=== PATIENT | female | born 1995 | race Caucasian/White ===

== ENCOUNTER 2017-05-25 02:38 | Emergency (ER) | payer BC, OTHER ==
[2017-05-25 02:47] VITALS: BP 163/71; RESP 18; TEMP 97.1
[2017-05-25] MEDS ORDERED: IPRATROPIUM-ALBUTEROL 3 ML NEB INHALATION STA (03:00)
[2017-05-25] MEDS ORDERED: methylPREDNISolone SOD SUCCI 125 MG/2 ML VIAL IM ONE (03:00)
--- NOTE | 2017-05-25 03:05 | XR ---
EXAM: XR Chest, 2 Views CLINICAL HISTORY: Reason: Pain TECHNIQUE: Frontal and lateral views of the chest. COMPARISON: 03/03/17 FINDINGS: Lungs: Unremarkable. No consolidation. Pleural space: Unremarkable. No pneumothorax. Heart: Unremarkable. No cardiomegaly. Mediastinum: Unremarkable. Bones/joints: Unremarkable. IMPRESSION: Normal chest x-rays.
--- NOTE | 2017-05-25 03:29 | ED ---
URI HPI - General Chief Complaint: Upper Respiratory Infection Stated Complaint: URI Time Seen by Provider: 05/25/17 02:54 Source: patient, RN notes reviewed Mode of arrival: ambulatory Limitations: no limitations - History of Present Illness Initial Comments: 21-year-old female presents emergency Department chief complaint of cough congestion shortness of breath. Patient states she was seen here for 5 weeks ago diagnosed with pneumonia. Patient states she took her antibiotics as directed states that she never followed she got better saw her primary care physician was given 2 repeat Z-Paks. Patient states that she's also been given a dose of steroids. Patient states approximately a week ago she developed a fever 102 with severe body aches and chills. Patient states is also resolved that she's having problems with her asthma. She states that she has a rescue inhaler, nebulizer and 2 layer. Patient denies any chest pain though she does complain of some chest tightness. Denies any abdominal pain denies nausea vomiting diarrhea constipation. Denies any chance . - Related Data Home Medications Medication Instructions Recorded Confirmed Albuterol Inhaler [Ventolin Hfa 1 puff INHALATION RT-Q6H PRN 01/22/16 03/03/17 Inhaler] Albuterol Nebulized [Ventolin 2.5 mg INHALATION RT-Q6H PRN 01/22/16 03/03/17 Nebulized] Mometasone/Formoterol [Dulera 100 2 puff INHALATION RT-BID 03/05/16 03/03/17 Mcg/5 Mcg Inhaler] Ibuprofen [Ibuprofen] 600 mg PO BID PRN 03/03/17 03/03/17 Loratadine [Claritin] 10 mg PO DAILY 03/03/17 03/03/17 Montelukast Sodium [Singulair] 10 mg PO HS 03/03/17 03/03/17 Previous Rx's Medication Instructions Recorded Ipratropium-Albuterol Nebulize 3 ml INHALATION QID #1 box 05/25/17 [Duoneb 0.5 mg-3 mg/3 ml Soln] predniSONE 10 mg PO DIRECTED #30 tab 05/25/17 Allergies Allergy/AdvReac Type Severity Reaction Status Date / Time amphetamine aspartate AdvReac Confusion Verified 05/25/17 02:47 [From Adderall] amphetamine sulfate AdvReac Confusion Verified 05/25/17 02:47 [From Adderall] dextroamphetamine saccharate AdvReac Confusion Verified 05/25/17 02:47 [From Adderall] dextroamphetamine sulfate AdvReac Confusion Verified 05/25/17 02:47 [From Adderall] Review of Systems ROS Statement: Those systems with pertinent positive or pertinent negative responses have been documented in the HPI. ROS Other: All systems not noted in ROS Statement are negative. Past Medical History Past Medical History: Asthma History of Any Multi-Drug Resistant Organisms: None Reported Past Surgical History: No Surgical Hx Reported Past Psychological History: No Psychological Hx Reported Smoking Status: Former smoker Past Alcohol Use History: None Reported Past Drug Use History: None Reported General Exam Limitations: no limitations General appearance: alert, in no apparent distress Head exam: Present: atraumatic, normocephalic, normal inspection Eye exam: Present: normal appearance, PERRL, EOMI. Absent: scleral icterus, conjunctival injection, periorbital swelling ENT exam: Present: normal exam, normal oropharynx, mucous membranes moist, TM's normal bilaterally, normal external ear exam Neck exam: Present: normal inspection, full ROM. Absent: tenderness, meningismus, lymphadenopathy Respiratory exam: Present: wheezes. Absent: normal lung sounds bilaterally, respiratory distress, rales, rhonchi, stridor Cardiovascular Exam: Present: regular rate, normal rhythm, normal heart sounds. Absent: systolic murmur, diastolic murmur, rubs, gallop, clicks Neurological exam: Present: alert, oriented X3, CN II-XII intact Course Vital Signs 05/25/17 05/25/17 02:44 03:14 Temperature 97.1 F L Pulse Rate 103 H 100 Respiratory 18 Rate Blood Pressure 163/71 O2 Sat by Pulse 94 L Oximetry - Reevaluation(s) Reevaluation #1: 05/25/17 03:27 Patient was reevaluated after DuoNeb treatment updated on chest x-ray results. Patient states she fills 100% better at this time. Medical Decision Making - Medical Decision Making 21-year-old female presented emergency from for shortness breath cough congestion. Patient's chest x-ray reviewed no acute abnormality. Patient feels better after DuoNeb treatment given IM steroids. Patient is having a mild asthma exacerbation. She'll be discharged on steroids, DuoNeb treatments. Disposition Clinical Impression: Asthma exacerbation Disposition: HOME SELF-CARE Condition: Stable Instructions: Asthma (ED) Additional Instructions: Please return to the Emergency Department if symptoms worsen or any other concerns. Prescriptions: Ipratropium-Albuterol Nebulize [Duoneb 0.5 mg-3 mg/3 ml Soln] 3 ml INHALATION QID #1 box predniSONE 10 mg PO DIRECTED #30 tab Referrals: Isabel Castro DO [Primary Care Provider] - 1-2 days Time of Disposition: 03:29
[2017-05-25 03:35] VITALS: PULSE 96
== END 2017-05-25 03:44 | disposition home or self-care (01) ==
LOC: EC 02:38
DX: J45.901 Unspecified asthma with (acute) exacerbation (principal); Z87.891 Personal history of nicotine dependence; Z79.51 Long term (current) use of inhaled steroids; Z79.899 Other long term (current) drug therapy; Z88.8 Allergy status to other drugs, medicaments and biological substances
CPT/HCPCS: 94640; 71046; 99283; 96372; J2930

== ENCOUNTER 2017-06-24 10:07 | Emergency (ER) | payer BC, OTHER ==
--- NOTE | 2017-06-24 11:45 | ED ---
General Adult HPI - General Chief complaint: Urogenital Stated complaint: Female Time Seen by Provider: 06/24/17 11:23 Source: patient, RN notes reviewed Mode of arrival: ambulatory Limitations: no limitations - History of Present Illness Initial comments: Patient is a 21-year-old female who presents emergency room today with a chief complaint of some vaginal irritation. She does admit that she felt some irritation to the vaginal area starting 4 days ago. States that she noticed a blister yesterday. States that the blister has ruptured. She also admits that she thought could be a little bit of a yeast infection as she has had small amount of drainage discharge. She denies any complaints or symptoms. - Related Data Previous Rx's Medication Instructions Recorded valACYclovir HCL [Valtrex] 1,000 mg PO BID #20 tablet 06/24/17 Allergies Allergy/AdvReac Type Severity Reaction Status Date / Time lamotrigine [From Lamictal] Allergy Hallucinati Verified 06/24/17 11:51 ons amphetamine aspartate AdvReac Confusion Verified 06/24/17 11:51 [From Adderall] amphetamine sulfate AdvReac Confusion Verified 06/24/17 11:51 [From Adderall] dextroamphetamine saccharate AdvReac Confusion Verified 06/24/17 11:51 [From Adderall] dextroamphetamine sulfate AdvReac Confusion Verified 06/24/17 11:51 [From Adderall] Review of Systems ROS Statement: Those systems with pertinent positive or pertinent negative responses have been documented in the HPI. ROS Other: All systems not noted in ROS Statement are negative. Past Medical History Past Medical History: Asthma History of Any Multi-Drug Resistant Organisms: None Reported Past Surgical History: No Surgical Hx Reported Past Psychological History: No Psychological Hx Reported Smoking Status: Former smoker Past Alcohol Use History: None Reported Past Drug Use History: None Reported General Exam - General Exam Comments Initial Comments: General: The patient is awake and alert, in no distress, and does not appear acutely ill. Eye: Pupils are equal, round and reactive to light, extra-ocular movements are intact. No nystagmus. There is normal conjunctiva bilaterally. No signs of icterus. Ears, nose, mouth and throat: There are moist mucous membranes and no oral lesions. Neck: The neck is supple, there is no tenderness or JVD. Cardiovascular: There is a regular rate and rhythm. No murmur, rub or gallop is appreciated. Respiratory: Lungs are clear to auscultation, respirations are non-labored, breath sounds are equal. No wheezes, stridor, rales, or rhonchi. Gastrointestinal: [Soft, non-distended, non-tender abdomen without masses or organomegaly noted. There is no rebound or guarding present. No CVA tenderness. Bowel sounds are unremarkable.] Musculoskeletal: Normal ROM, no tenderness. Strength 5/5. Sensation intact. Pulses equal bilaterally 2+. Neurological: A&O x 3. CN II-XII intact, There are no obvious motor or sensory deficits. Coordination appears grossly intact. Speech is normal. Skin: Skin is warm and dry and no rashes or lesions are noted. Psychiatric: Cooperative, appropriate mood & affect, normal judgment. : CNMT and she present for exam. Patient does have 3-4 he will get blisters seen just inside the labia majora on the right. Areas are tender. There is no other redness or inflammation. Patient does have some vaginal bleeding in the vault. There is no evidence of tear. Limitations: no limitations Course Vital Signs 06/24/17 10:14 Temperature 98.7 F Pulse Rate 102 H Respiratory 16 Rate Blood Pressure 136/81 O2 Sat by Pulse 96 Oximetry Medical Decision Making - Medical Decision Making Patient does have blisters right side of the labia minora. Patient does have a swab but is a send out for herpes. Was discussed with patient about beginning treatment today. She states she would like to start treatment. She is advised that she should follow back up with [employer]. Advised no sexual contact symptoms have completely resolved. Disposition Clinical Impression: Blister of genital area Disposition: HOME SELF-CARE Condition: Good Instructions: Genital Herpes Simplex (ED) Additional Instructions: Please use medication as discussed. Please follow-up with [employer] as discussed. No sexual contact all symptoms have resolved. Please return to emergency room if the symptoms increase or worsen or for any other concerns. Prescriptions: valACYclovir HCL [Valtrex] 1,000 mg PO BID #20 tablet Referrals: Isabel Castro DO [Primary Care Provider] - 1-2 days Therese Ward DO [Doctor of Osteopathic Medicine] - 1-2 days Time of Disposition: 12:23
[2017-06-24 12:38] VITALS: BP 135/56; PULSE 98; RESP 20; TEMP 98.3
== END 2017-06-24 12:35 | disposition home or self-care (01) ==
LOC: EC 10:07
DX: S30.824A Blister (nonthermal) of vagina and vulva, initial encounter (principal); N93.9 Abnormal uterine and vaginal bleeding, unspecified; Z87.891 Personal history of nicotine dependence; Z88.8 Allergy status to other drugs, medicaments and biological substances
CPT/HCPCS: 81025; 87086; 87529; 99283

== ENCOUNTER → 2018-04-07 | Outpatient (CLI) | payer OTHER ==
[2018-04-07 12:14] LABS: HCT 34.1 % (34.0-46.0); HGB 11.8 gm/dL (11.4-16.0); MCH 30.2 pg (25.0-35.0); MCHC 34.6 g/dL (31.0-37.0); MCV 87.3 fL (80.0-100.0); Mean Platelet Volume 7.9; Platelet Count 304 k/uL (150-450); RBC 3.91 m/uL (3.80-5.40); RDW 14.7 % (11.5-15.5); WBC 10.4 k/uL (4.0-11.0)
== END | disposition home or self-care (01) ==
LOC: LABWHC1 10:43
PROVIDERS: ATTEND Obstetrics & Gynecology
DX: Z34.82 Encounter for supervision of other normal pregnancy, second trimester (principal)
CPT/HCPCS: 36415; 82950; 85027

== ENCOUNTER 2018-04-20 18:08 | Outpatient (CLI) | payer BC, OTHER ==
[2018-04-20 18:48] LABS: Amorphous Sediment,Urine Rare /hpf; Appearance,Urine Clear (Clear); Bacteria,Urine Occasional /hpf; Bilirubin,Urine Negative (Negative); Blood,Urine Negative (Negative); Color,Urine Yellow; Glucose,Urine (UA) Negative (Negative); Ketones,Urine Negative (Negative); Leukocyte Esterase,Urine Moderate (Negative); Mucus,Urine Few /hpf; Nitrite,Urine Negative (Negative); Protein,Urine Trace (Negative); RBC,Urine 3 /hpf (0-5); Specific Gravity,Urine 1.019 (1.001-1.035); Squamous Epithelial Cell,Urine 9 /hpf (0-4); Urobilinogen,Urine <2.0 mg/dL (<2.0); WBC,Urine 12 /hpf (0-5)
[2018-04-20 19:10] VITALS: BP 160/78; PULSE 107; RESP 20; TEMP 96.2
--- NOTE | 2018-05-05 07:52 | P.MSEPDOC ---
Presenting Problems - Arrival Data Date of Arrival on Unit: 04/20/18 Time of Arrival on Unit: 18:08 Mode of Transport: Ambulatory - Complaint Comment: pt presents for right sided pain that wraps around to her whole back and down her right leg for the last 3 days Medical History - Information : 1 Para: 0 Term: 0 : 0 Abortions: Spontaneous or Elective: 0 Number of Living Children: 0 - Gestational Age Gestational Age by ALISA (wks/days): 28 Weeks and 1 Days Review of Systems - Review of Systems Constitutional: No problems Breast: No problems ENT: No problems Cardiovascular: No problems Respiratory: Wheezing Gastrointestinal: No problems Genitourinary: No problems Musculoskeletal: No problems Neurological: No problems Skin: No problems Vital Signs - Temperature Temperature: 96.2 F Temperature Source: Axillary - Pulse Right Brachial Pulse Rate: 107 - Respirations Respiratory Rate: 20 Oxygen Delivery Method: Room Air - Blood Pressure Right Arm Blood Pressure: 160/78 Blood Pressure Mean: 105 Blood Pressure Source: Automatic Cuff Medical Screen Scoring (Pre) - Cervical Exam Dilation: 0 cm = 0 Membranes: Intact - Uterine Contractions Frequency: N/A Duration: N/A Intensity: N/A - Maternal Vital Signs Maternal Temperature: N/A Maternal Blood Pressure: Systolic >139 = 2 Signs of Preeclampsia: N/A Maternal Respirations: N/A - Pain Assessment Pain Scale Used: Numeric (1 - 10) Pain Intensity: 8 Pain Description: *Acute, Aching, Burning, Cramping, Pressure, Sharp, Shooting Pain Duration: 3 Pain Duration Units: Days Pain Behavior: Facial Grimacing, Moving Slowly, Vocalization - Assessment Baseline FHR: 140 Heart Rate - NICHD Category: Category I (Normal) = 0 NST: Reactive Position: N/A Station: N/A - Total Score Total Score (Pre): 2 - Level of Risk Level of Risk: Low (0-5) Physician Notification (Pre) - Physician Notified Physician Notified Date: 04/20/18 Physician Notified Time: 18:57 Physician/Practitioner Notifed:: Dr. Coronel Spoke With: Dr. Coronel - Notification Comment Comment: Dr. Coronel notified of pt's arrival, c/o pain, SOB, exp wheezes, productive cough, reactive nst, no contractions, abd soft, cervical exam, ua results, orders to discharge pt home, she is to follow up in ob office on Wednesday at scheduled appt, if any more resp issues she needs to be seen in the ER Disposition - Disposition OB Disposition: Triage, Discharge to home, Written follow up instructions reviewed Discharge Date: 04/20/18 Discharge Time: 19:05 I agree with the RN Medical Screening Exam: Yes Risk & Benefit of care provided described in d/c instruction: Yes Diagnosis: RELATED CONDITIONS, UNSP, UNSPECIFIED TRIMESTER
== END 2018-04-20 19:05 | disposition home or self-care (01) ==
LOC: FBPOP 18:08
PROVIDERS: ATTEND Obstetrics & Gynecology
DX: O26.93 Pregnancy related conditions, unspecified, third trimester (principal); Z3A.28 28 weeks gestation of pregnancy
CPT/HCPCS: 59025; 81001; G0463; 99213

== ENCOUNTER 2018-04-22 09:35 | Observation (INO) | payer BC, OTHER ==
[2018-04-22 10:22] VITALS: BMI 44.7
--- NOTE | 2018-04-22 13:13 | XR ---
EXAMINATION TYPE: XR chest 2V DATE OF EXAM: 04/22/2018 COMPARISON: Prior chest x-ray 06/13/2017 HISTORY: Shortness of breath TECHNIQUE: Frontal and lateral views of the chest are obtained. FINDINGS: There is no focal air space opacity, pleural effusion, or pneumothorax seen. The cardiac silhouette size is within normal limits. The osseous structures are intact. IMPRESSION: No acute cardiopulmonary process.
[2018-04-22] MEDS ORDERED: ALBUTEROL NEBULIZED 2.5 MG/3 ML INHALATION PRN (13:15)
--- NOTE | 2018-04-22 13:21 | P.CNPUL ---
History of Present Illness Consult date: 04/22/18 Requesting physician: Bhupendra Coronel Reason for consult: dyspnea, cough, asthma Chief complaint: Shortness of breath, wheezing History of present illness: This is a very pleasant 22-year-old female patient who is [address] weeks [address] with [address] Coronel. She has a history of mild intermittent asthma and utilizes a Ventolin rescue inhaler as needed. Over the past several weeks she has been having ongoing issues with worsening shortness of breath, cough, productive sputum and congestion. She had been seen at [facility] ER 2 initially on a Z-Eder and then on a Medrol Dosepak. She had not had much improvement and was admitted here for the same. She is seen today in consultation in the [facility]. She is awake and alert in no acute distress. She is maintaining good O2 saturations in the mid 90s on room air. She's been afebrile. Hemodynamically stable. She states she is still having issues with some shortness of breath and shortness of breath on exertion. She is noted to have a mild end expiratory wheeze. Chest x-ray is clear of any pneumonia. Review of Systems Constitutional: Reports as per HPI Eyes: denies blurred vision, denies decreased vision Ears: deny: decreased hearing Ears, nose, mouth and throat: Denies headache, Denies sore throat Cardiovascular: Reports dyspnea on exertion, Reports shortness of breath Respiratory: Reports cough with sputum, Reports dyspnea, Reports wheezing Gastrointestinal: Denies abdominal pain, Denies diarrhea, Denies nausea, Denies vomiting Genitourinary: Denies dysuria, Denies hematuria Musculoskeletal: Denies myalgias Integumentary: Denies pruritus, Denies rash Neurological: Denies numbness, Denies weakness Psychiatric: Reports anxiety Endocrine: Denies fatigue, Denies weight change Hematologic/Lymphatic: Reports as per HPI Allergic/Immunologic: Reports as per HPI Past Medical History Past Medical History: Asthma History of Any Multi-Drug Resistant Organisms: None Reported Past Surgical History: No Surgical Hx Reported Past Anesthesia/Blood Transfusion Reactions: No Reported Reaction Past Psychological History: No Psychological Hx Reported Smoking Status: Former smoker Past Alcohol Use History: None Reported Past Drug Use History: None Reported Medications and Allergies Home Medications Medication Instructions Recorded Confirmed Type Albuterol Inhaler [Ventolin Hfa 1 puff INHALATION Q4HR 03/31/18 04/22/18 History Inhaler] Pnv No.95/Ferrous Fum/Folic AC 1 tab PO DAILY 03/31/18 04/22/18 History [ Multivitamin Tablet] Allergies Allergy/AdvReac Type Severity Reaction Status Date / Time lamotrigine [From Lamictal] Allergy Hallucinati Verified 04/22/18 09:54 ons amphetamine aspartate AdvReac Confusion Verified 04/22/18 09:54 [From Adderall] amphetamine sulfate AdvReac Confusion Verified 04/22/18 09:54 [From Adderall] dextroamphetamine saccharate AdvReac Confusion Verified 04/22/18 09:54 [From Adderall] dextroamphetamine sulfate AdvReac Confusion Verified 04/22/18 09:54 [From Adderall] Physical Exam Vitals: Vital Signs Temp Pulse Resp BP Pulse Ox 04/22/18 09:52 98.7 F 98 20 133/67 95 Intake and Output 04/21/18 04/22/18 04/22/18 22:59 06:59 14:59 Other: Weight 122.016 kg GENERAL EXAM: Alert, active, comfortable in no apparent distress. HEAD: Normocephalic. EYES: Normal reaction of pupils, equal size. NOSE: Clear with pink turbinates. THROAT: No erythema or exudates. NECK: No masses, no JVD. CHEST: No chest wall deformity. LUNGS: Equal air entry with faint end expiratory wheeze. CVS: S1 and S2 normal with no audible murmur, regular rhythm. ABDOMEN: Intrauterine , normal bowel sounds, no guarding or rigidity. SPINE: No scoliosis or deformity SKIN: No rashes CENTRAL NERVOUS SYSTEM: No focal deficits, tone is normal in all 4 extremities. EXTREMITIES: There is no peripheral edema. No clubbing, no cyanosis. Peripheral pulses are intact. Results - Diagnostic Findings Chest x-ray: image reviewed Assessment and Plan Assessment: Impression: #1 Acute exacerbation of mild intermittent asthma exacerbated by . #2 Acute purulent tracheobronchitis with no evidence of pneumonia. #3 28 weeks gestation. #4 Gastroesophageal reflux disease. Plan: The patient was seen and evaluated by Dr. Vasquez. She is stable for discharge from the pulmonary standpoint. We'll add Symbicort maintenance inhaler to be utilized 2 puffs twice a day. Prednisone 20 mg for 5 days then 10 mg for 5 days then 5 mg for 5 days then stop. Continue to utilize the Ventolin HFA up to 4 times a day as needed. Empiric antibiotics in the form of azithromycin 500 mg daily for 7 days. She could follow-up in our office in 1-2 weeks' time. We will perform full pulmonary function testing to evaluate the severity of her asthma and make further recommendations regarding maintenance medications. She is encouraged to call sooner with any recurrence of symptoms or other questions or concerns. I, the cosigning physician, performed a history & physical examination of the patient. Lungs sounds with faint end expiratory wheeze. Maintaining good O2 saturations in the 90s on room air. I discussed the assessment and plan of care with my nurse practitioner, Clarice Joe. I attest to the above consultation as dictated by her. Time with Patient: Greater than 30
[2018-04-22 13:27] VITALS: RESP 18
[2018-04-22] MEDS ORDERED: AZITHROMYCIN 500 MG TAB PO SCH (13:30)
[2018-04-22] MEDS ORDERED: methylPREDNISolone SOD SUCCI 125 MG/2 ML VIAL IV SCH (13:30)
[2018-04-22 14:37] VITALS: BP 118/59; TEMP 98.8
[2018-04-22] MEDS ORDERED: predniSONE 20 MG TAB PO STA (15:42)
[2018-04-22] MEDS ORDERED: ALBUTEROL NEBULIZED 2.5 MG/3 ML INHALATION SCH (16:00)
[2018-04-22 16:08] VITALS: PULSE 93
--- NOTE | 2018-04-22 16:24 | P.DS ---
Providers Date of admission: 04/22/18 09:35 Expected date of discharge: 04/22/18 Attending physician: Bhupendra Coronel Consults: 04/22/18 11:10 Consult Physician Stat Consulting Provider: Bob Vasquez Consult Reason/Comments: Acute Asthma Brochitis Do you want consulting provider notified?: Yes Primary care physician: Stated None Hospital Course: Was seen by pulmonary and is had breathing treatments. They have prescribed medication for her including Symbicort and once we have these medicines for her will discharge her to home in stable and satisfactory condition. All other questions were answered for her at this time. Patient Condition at Discharge: Good Plan - Discharge Summary Discharge Rx Participant: No New Discharge Prescriptions: No Action Albuterol Inhaler [Ventolin Hfa Inhaler] 1 puff INHALATION Q4HR Pnv No.95/Ferrous Fum/Folic AC [ Multivitamin Tablet] 1 tab PO DAILY Discharge Medication List Albuterol Inhaler [Ventolin Hfa Inhaler] 1 puff INHALATION Q4HR 03/31/18 [ History] Pnv No.95/Ferrous Fum/Folic AC [ Multivitamin Tablet] 1 tab PO DAILY [History]
--- NOTE | 2018-04-22 16:24 | P.HPOB ---
History of Present Illness H&P Date: 04/22/18 Chief Complaint: Intrauterine at 28 weeks: Asthmatic bronchitis Patient is a 22-year-old female 28 weeks gestation with acute asthmatic bronchitis. She's been tried on 2 separate antibiotics and oral steroids and is continuing to have symptomatic bronchitis she is admitted for pulmonary consultation. Her breathing today in the office was somewhat labored with diffuse expiratory wheezes. We will defer evaluation and treatment options to pulmonary. Otherwise she is in stable condition at this time. heart tones were noted in the office. Past Medical History Past Medical History: Asthma History of Any Multi-Drug Resistant Organisms: None Reported Past Surgical History: No Surgical Hx Reported Past Anesthesia/Blood Transfusion Reactions: No Reported Reaction Past Psychological History: No Psychological Hx Reported Smoking Status: Former smoker Past Alcohol Use History: None Reported Past Drug Use History: None Reported Medications and Allergies Home Medications Medication Instructions Recorded Confirmed Type Albuterol Inhaler [Ventolin Hfa 1 puff INHALATION Q4HR 03/31/18 04/22/18 History Inhaler] Pnv No.95/Ferrous Fum/Folic AC 1 tab PO DAILY 03/31/18 04/22/18 History [ Multivitamin Tablet] Allergies Allergy/AdvReac Type Severity Reaction Status Date / Time lamotrigine [From Lamictal] Allergy Hallucinati Verified 04/22/18 09:54 ons amphetamine aspartate AdvReac Confusion Verified 04/22/18 09:54 [From Adderall] amphetamine sulfate AdvReac Confusion Verified 04/22/18 09:54 [From Adderall] dextroamphetamine saccharate AdvReac Confusion Verified 04/22/18 09:54 [From Adderall] dextroamphetamine sulfate AdvReac Confusion Verified 04/22/18 09:54 [From Adderall] Exam Osteopathic Statement: *. No significant issues noted on an osteopathic structural exam other than those noted in the History and Physical/Consult. Vital Signs Temp Pulse Pulse Resp BP BP Pulse Ox 04/22/18 16:07 93 04/22/18 16:00 89 04/22/18 14:35 98.8 F 93 18 118/59 96 04/22/18 10:00 18 04/22/18 09:52 98.7 F 98 20 133/67 95 Intake and Output 04/22/18 04/22/18 04/22/18 06:59 14:59 22:59 Intake Total 500 Balance 500 Intake: Oral 500 Other: Weight 122.016 kg - OBG Physical Exam Abdomen: bowel sounds normal, no diffuse tenderness, no bruit present, no guarding noted, no hepatomegaly, no splenomegaly, no mass
[2018-04-22] MEDS ORDERED: SYMBICORT 160-4.5 MCG INHALER INHALATION SCH (20:00)
[2018-04-22] MEDS ORDERED: BUDESONIDE 0.5 MG/2 ML NEBU INHALATION SCH (20:00)
== END 2018-04-22 17:25 | disposition home or self-care (01) ==
LOC: INTOOBSV 09:35 → 4FBP 09:35 → UNDODISIN 17:25
PROVIDERS: ADMIT Obstetrics & Gynecology; ATTEND Obstetrics & Gynecology
DX: O99.513 Diseases of the respiratory system complicating pregnancy, third trimester (principal); J45.21 Mild intermittent asthma with (acute) exacerbation; Z3A.28 28 weeks gestation of pregnancy; J20.9 Acute bronchitis, unspecified; O99.613 Diseases of the digestive system complicating pregnancy, third trimester; K21.9 Gastro-esophageal reflux disease without esophagitis; Z79.899 Other long term (current) drug therapy; Z87.891 Personal history of nicotine dependence; Z88.8 Allergy status to other drugs, medicaments and biological substances
CPT/HCPCS: 94640; 71046; G0378; G0379; J7512

== ENCOUNTER 2018-05-06 19:17 | Emergency (ER) | payer OTHER ==
[2018-05-06 19:23] VITALS: TEMP 98.7
[2018-05-06] MEDS ORDERED: SODIUM CHLORIDE 0.9% 500 ML 500 ML IV ONE (20:32)
[2018-05-06 20:55] LABS: Basophils % (A) 0 %; Eosinophils # (A) 0.1 k/uL (0-0.7); Eosinophils % (A) 1 %; HCT 35.4 % (34.0-46.0); HGB 11.6 gm/dL (11.4-16.0); Lymphocytes # (A) 2.1 k/uL (1.0-4.8); Lymphocytes % (A) 13 %; MCHC 32.8 g/dL (31.0-37.0); MCV 85.3 fL (80.0-100.0); Mean Platelet Volume 8.2; Monocytes # (A) 0.8 k/uL (0-1.0); Monocytes % (A) 5 %; Neutrophils # (A) 12.5 k/uL (1.3-7.7); Neutrophils % (A) 80 %; Platelet Count 333 k/uL (150-450); RBC 4.15 m/uL (3.80-5.40); RDW 14.6 % (11.5-15.5); WBC 15.7 k/uL (4.0-11.0)
[2018-05-06 20:58] LABS: Appearance,Urine Cloudy (Clear); Bilirubin,Urine Negative (Negative); Blood,Urine Negative (Negative); Color,Urine Yellow; Glucose,Urine (UA) Negative (Negative); Ketones,Urine Negative (Negative); Leukocyte Esterase,Urine Large (Negative); Mucus,Urine Few /hpf; Nitrite,Urine Negative (Negative); Protein,Urine 2+ (Negative); RBC,Urine 4 /hpf (0-5); Specific Gravity,Urine 1.022 (1.001-1.035); Squamous Epithelial Cell,Urine 10 /hpf (0-4); WBC,Urine 20 /hpf (0-5)
[2018-05-06 21:04] LABS: ALT 26 U/L (9-52); AST 23 U/L (14-36); Albumin 3.4 g/dL (3.5-5.0); Alkaline Phosphatase 155 U/L (38-126); Anion Gap 9 mmol/L; Blood Urea Nitrogen 8 mg/dL (7-17); Calcium 9.3 mg/dL (8.4-10.2); Carbon Dioxide 21 mmol/L (22-30); Chloride 106 mmol/L (98-107); Glucose 81 mg/dL (74-99); Potassium 4.3 mmol/L (3.5-5.1); Sodium 136 mmol/L (137-145); Total Bilirubin 0.4 mg/dL (0.2-1.3); Total Protein 6.9 g/dL (6.3-8.2)
[2018-05-06 21:06] LABS: INR 0.9 (<1.2); Partial Thromboplastin Time 22.7 sec (22.0-30.0); Prothrombin Time 9.4 sec (9.0-12.0)
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
[2018-05-06 22:38] VITALS: BP 118/80; PULSE 91; RESP 16
[2018-05-08 12:31] LABS: C. trachomatis,PCR Negative (Neg,Equiv); Chlamydia trachomatis Source Urine
== END 2018-05-06 22:41 | disposition home or self-care (01) ==
LOC: EC 19:17
DX: O9A.213 Injury, poisoning and certain other consequences of external causes complicating pregnancy, third trimester (principal); S20.01XA Contusion of right breast, initial encounter; R10.30 Lower abdominal pain, unspecified; M54.5 Low back pain; O99.89 Other specified diseases and conditions complicating pregnancy, childbirth and the puerperium; R82.998 Other abnormal findings in urine; O99.513 Diseases of the respiratory system complicating pregnancy, third trimester; J45.909 Unspecified asthma, uncomplicated; Z87.891 Personal history of nicotine dependence; Z88.8 Allergy status to other drugs, medicaments and biological substances; Z79.52 Long term (current) use of systemic steroids; Z3A.30 30 weeks gestation of pregnancy; V49.49XA Driver injured in collision with other motor vehicles in traffic accident, initial encounter; Y92.410 Unspecified street and highway as the place of occurrence of the external cause
CPT/HCPCS: 36415; 80053; 85025; 85610; 85730; 81001; 87491; 87086; 74177; 99284; Q9967

== ENCOUNTER 2018-05-06 23:00 | Outpatient (CLI) | payer OTHER ==
[2018-05-07 00:07] VITALS: BP 136/74; PULSE 91; RESP 16; TEMP 97.3
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
== END 2018-05-06 23:40 | disposition home or self-care (01) ==
LOC: FBPOP 23:00
PROVIDERS: ATTEND Obstetrics & Gynecology
DX: O9A.213 Injury, poisoning and certain other consequences of external causes complicating pregnancy, third trimester (principal); Z04.1 Encounter for examination and observation following transport accident; Z3A.30 30 weeks gestation of pregnancy
CPT/HCPCS: 59025; G0463; 99213

== ENCOUNTER 2018-06-19 23:35 | Outpatient (CLI) | payer OTHER ==
[2018-06-20 01:11] VITALS: BP 136/69; PULSE 95; RESP 16; TEMP 97.7
--- NOTE | 2018-06-29 20:56 | P.MSEPDOC ---
Presenting Problems - Arrival Data Date of Arrival on Unit: 06/19/18 Time of Arrival on Unit: 23:33 Mode of Transport: Ambulatory - Complaint OB-Reason for Admission/Chief Complaint: Rule Out SROM Medical History - Information : 1 Para: 0 - Gestational Age Gestational Age by ALISA (wks/days): 37 Weeks and 3 Days Review of Systems - Review of Systems Constitutional: No problems Breast: No problems ENT: No problems Cardiovascular: No problems Respiratory: No problems Gastrointestinal: No problems Genitourinary: No problems Musculoskeletal: No problems Neurological: No problems Skin: No problems Vital Signs - Temperature Temperature: 97.7 F Temperature Source: Temporal Artery Scan - Pulse Right Sitting Brachial Pulse Rate: 95 Pulse Assessment Method: Pulse Oximetry - Respirations Respiratory Rate: 16 Oxygen Delivery Method: Room Air O2 Sat by Pulse Oximetry: 97 - Blood Pressure Right Arm Sitting Blood Pressure: 136/69 Blood Pressure Mean: 91 Blood Pressure Source: Automatic Cuff Medical Screen Scoring (Pre) - Cervical Exam Dilation: 1-3 cm = 1 Membranes: Intact - Uterine Contractions Frequency: > or = 36 weeks =2 Duration: N/A Intensity: N/A - Maternal Vital Signs Maternal Temperature: N/A Maternal Blood Pressure: N/A Signs of Preeclampsia: N/A Maternal Respirations: N/A - Pain Assessment Pain Location and Character: Abdomen Pain Scale Used: Numeric (1 - 10) Pain Intensity: 4 Pain Management Goal: 0 Pain Description: Cramping Pain Radiation Location: 0 Pain Frequency: Intermittent Pain Duration: 9 Pain Duration Units: Hours Pain Behavior: None Exhibited Effects of Pain: 0 Pain Aggravating Factors: None - Maternal Trauma Maternal Trauma: N/A - Assessment Baseline FHR: 140 Heart Rate - NICHD Category: Category I (Normal) = 0 NST: Reactive Position: N/A Station: N/A - Total Score Total Score (Pre): 3 - Level of Risk Level of Risk: Low (0-5) Physician Notification (Pre) - Physician Notified Physician Notified Date: 06/20/18 Physician Notified Time: 00:44 Physician/Practitioner Notifed:: Dr Cameron Spoke With: Dr Cameron New Order Received: Yes (d/c pt home) Disposition - Disposition OB Disposition: Discharge to home Discharge Date: 06/20/18 Discharge Time: 00:46 I agree with the RN Medical Screening Exam: Yes Risk & Benefit of care provided described in d/c instruction: Yes Diagnosis: FALSE LABOR AT OR AFTER 37 COMPLETED WEEKS OF GESTATION
== END 2018-06-20 00:46 | disposition home or self-care (01) ==
LOC: FBPOP 23:35
PROVIDERS: ATTEND Obstetrics & Gynecology
DX: O47.1 False labor at or after 37 completed weeks of gestation (principal); Z3A.37 37 weeks gestation of pregnancy
CPT/HCPCS: 59025; 84112; G0463; 99213

== ENCOUNTER 2018-06-29 01:09 | Outpatient (CLI) | payer OTHER ==
[2018-06-29 01:24] LABS: Appearance,Urine Clear (Clear); Bilirubin,Urine Negative (Negative); Blood,Urine Negative (Negative); Color,Urine Yellow; Glucose,Urine (UA) Negative (Negative); Ketones,Urine Negative (Negative); Leukocyte Esterase,Urine Negative (Negative); Nitrite,Urine Negative (Negative); Protein,Urine Negative (Negative); Urobilinogen,Urine <2.0 mg/dL (<2.0)
[2018-06-29 02:03] VITALS: BP 142/74; PULSE 93; RESP 16; TEMP 96.7
[2018-06-29 02:06] LABS: Anisocytosis Slight; Basophils % (A) 0 %; Eosinophils # (A) 0.1 k/uL (0-0.7); Eosinophils % (A) 1 %; HCT 30.2 % (34.0-46.0); HGB 9.8 gm/dL (11.4-16.0); Lymphocytes # (A) 1.2 k/uL (1.0-4.8); Lymphocytes % (A) 13 %; MCH 28.1 pg (25.0-35.0); MCHC 32.6 g/dL (31.0-37.0); MCV 86.1 fL (80.0-100.0); Mean Platelet Volume 9.4; Monocytes # (A) 0.6 k/uL (0-1.0); Monocytes % (A) 7 %; Neutrophils # (A) 7.2 k/uL (1.3-7.7); Neutrophils % (A) 78 %; Platelet Count 278 k/uL (150-450); RDW 16.2 % (11.5-15.5); WBC 9.2 k/uL (4.0-11.0)
[2018-06-29 02:30] LABS: ALT 19 U/L (9-52); AST 18 U/L (14-36); Blood Urea Nitrogen 7 mg/dL (7-17); LDH 392 U/L (313-618); Uric Acid 4.5 mg/dL (3.7-7.4)
[2018-06-29 03:05] LABS: INR 0.8 (<1.2); Prothrombin Time 9.4 sec (9.0-12.0)
--- NOTE | 2018-06-29 06:35 | P.MSEPDOC ---
Presenting Problems - Arrival Data Date of Arrival on Unit: 06/29/18 Time of Arrival on Unit: 01:09 Mode of Transport: Ambulatory - Complaint OB-Reason for Admission/Chief Complaint: Acute Nausea/Vomiting, Headache, Visual Disturbances, Elevated Blood Pressure Medical History - Information : 2 Para: 0 Term: 0 : 0 Abortions: Spontaneous or Elective: 1 Number of Living Children: 0 - Gestational Age Gestational Age by ALISA (wks/days): 38 Weeks and 1 Days Review of Systems - Review of Systems Constitutional: No problems Breast: No problems ENT: No problems Cardiovascular: No problems Respiratory: No problems Gastrointestinal: No problems Genitourinary: No problems Musculoskeletal: No problems Neurological: No problems Skin: No problems Vital Signs - Temperature Temperature: 96.7 F Temperature Source: Temporal Artery Scan - Pulse Right Brachial Pulse Rate: 93 Pulse Assessment Method: Automatic Cuff - Respirations Respiratory Rate: 16 Oxygen Delivery Method: Room Air O2 Sat by Pulse Oximetry: 97 - Blood Pressure Right Arm Blood Pressure: 142/74 Blood Pressure Mean: 96 Blood Pressure Source: Automatic Cuff Medical Screen Scoring (Pre) - Cervical Exam Dilation: Exam Deferred Effacement: Exam Deferred Membranes: Intact - Uterine Contractions Frequency: N/A Duration: N/A Intensity: N/A - Maternal Vital Signs Maternal Temperature: N/A Maternal Blood Pressure: N/A Signs of Preeclampsia: N/A Maternal Respirations: N/A - Pain Assessment Pain Location and Character: Head, Frontal Pain Scale Used: Numeric (1 - 10) Pain Intensity: 6 Pain Description: *Acute, Dull - Maternal Trauma Maternal Trauma: N/A - Assessment Baseline FHR: 140 Heart Rate - NICHD Category: Category I (Normal) = 0 NST: Reactive Position: N/A Station: N/A - Total Score Total Score (Pre): 0 - Level of Risk Level of Risk: Low (0-5) Physician Notification (Pre) - Physician Notified Physician Notified Date: 06/29/18 Physician Notified Time: 02:59 Physician/Practitioner Notifed:: Dr. Pace Spoke With: Dr. Pace New Order Received: Yes - Notification Comment Comment: Dr. Pace given report on pt lab results and bps. Orders recieved to d/c pt. to home. Disposition - Disposition OB Disposition: Discharge to home Discharge Date: 06/29/18 Discharge Time: 03:08 I agree with the RN Medical Screening Exam: Yes Risk & Benefit of care provided described in d/c instruction: Yes Diagnosis: HEADACHE
== END 2018-06-29 03:10 | disposition home or self-care (01) ==
LOC: FBPOP 01:09
PROVIDERS: ATTEND Obstetrics & Gynecology
DX: O99.89 Other specified diseases and conditions complicating pregnancy, childbirth and the puerperium (principal); R51 Headache; Z3A.38 38 weeks gestation of pregnancy
CPT/HCPCS: 59025; 82570; 84156; 82565; 83615; 84450; 84460; 84520; 84550; 85025; 85384; 85610; 85730; 81003; G0463; 99213

== ENCOUNTER 2018-07-01 22:23 | Inpatient (IN) | payer OTHER ==
[~2018-07-01 22:23] MED LIST: ROPIVACAINE 5MG/ML 20ML VIAL ONE; SODIUM CHLORIDE 0.9% 100 ML BAG ONE; fentaNYL (PF) 50 MCG/ML 5 ML AMP ONE
[2018-07-01] MEDS ORDERED: OXYTOCIN 10 UNIT/ML 1 ML VIAL IM PRN (22:55)
[2018-07-01] MEDS ORDERED: CARBOPROST TROMETHAMINE 250 MCG/ML 1 ML AMP IM PRN (22:55)
[2018-07-01] MEDS ORDERED: LIDOCAINE 0.5% (PF) 5 MG/ML (50 ML SDV) SQ PRN (22:55)
[2018-07-01] MEDS ORDERED: TERBUTALINE 1 MG/ML VIAL SQ PRN (22:55)
[2018-07-01] MEDS ORDERED: AMPICILLIN 2,000 MG in SODIUM CHLORIDE 0.9% 100 ML IVPB STA (22:55)
[2018-07-01] MEDS ORDERED: METHYLERGONOVINE 0.2 MG/ML 1 ML AMP IM PRN (22:55)
[2018-07-01] MEDS: LACTATED RINGERS 1,000 ML IV SCH (23:58)
[2018-07-02 00:30] LABS: Anisocytosis Slight; Basophils % (A) 0 %; Eosinophils # (A) 0.1 k/uL (0-0.7); Eosinophils % (A) 1 %; HCT 31.2 % (34.0-46.0); HGB 10.2 gm/dL (11.4-16.0); Lymphocytes # (A) 1.6 k/uL (1.0-4.8); Lymphocytes % (A) 14 %; MCH 27.9 pg (25.0-35.0); MCHC 32.5 g/dL (31.0-37.0); MCV 85.8 fL (80.0-100.0); Mean Platelet Volume 8.2; Monocytes # (A) 0.6 k/uL (0-1.0); Monocytes % (A) 6 %; Neutrophils # (A) 8.6 k/uL (1.3-7.7); Neutrophils % (A) 78 %; Platelet Count 310 k/uL (150-450); RBC 3.64 m/uL (3.80-5.40); RDW 16.2 % (11.5-15.5); WBC 11.1 k/uL (4.0-11.0)
[2018-07-02 00:37] VITALS: BMI 47.0
[2018-07-02 01:19] LABS: ALT 27 U/L (9-52); AST 20 U/L (14-36); Blood Urea Nitrogen 9 mg/dL (7-17); LDH 450 U/L (313-618); Uric Acid 5.1 mg/dL (3.7-7.4)
[2018-07-02 01:39] LABS: Appearance,Urine Clear (Clear); Bacteria,Urine Rare /hpf; Bilirubin,Urine Negative (Negative); Blood,Urine Small (Negative); Color,Urine Yellow; Glucose,Urine (UA) Negative (Negative); Ketones,Urine Negative (Negative); Leukocyte Esterase,Urine Small (Negative); Nitrite,Urine Negative (Negative); PH, Urine 6.5 (5.0-8.0); Protein,Urine Negative (Negative); RBC,Urine 13 /hpf (0-5); Specific Gravity,Urine 1.009 (1.001-1.035); Squamous Epithelial Cell,Urine 1 /hpf (0-4); Urobilinogen,Urine <2.0 mg/dL (<2.0); WBC,Urine 7 /hpf (0-5)
[2018-07-02] MEDS ORDERED: hydrALAZINE HCL 20 MG/ML 1 ML VIAL IVP STA ×3 (01:50→05:45)
[2018-07-02] MEDS ORDERED: MAGNESIUM SULFATE-D5W PMX 1 GM in DEXTROSE/WATER 1 100ML.BAG IVPB SCH ×2 (02:15→02:30)
[2018-07-02] MEDS ORDERED: MAGNESIUM SULFATE-WATER PMX 4 GM in WATER FOR INJECTION 1 100ML.BAG IVPB ONE (02:41)
[2018-07-02] MEDS: MAGNESIUM SULFATE-WATER PMX 20 GM in WATER FOR INJECTION 1 500ML.BAG IV SCH ×2 (02:58→17:25)
[2018-07-02] MEDS ORDERED: [UNRECOGNIZED DRUG - OTHER] IV ONE (03:00)
[2018-07-02] MEDS ORDERED: MAGNESIUM SULFATE IV ONE (03:00)
[2018-07-02] MEDS: AMPICILLIN 1,000 MG in SODIUM CHLORIDE 0.9% 50 ML IVPB SCH ×2 (03:25→08:20)
[2018-07-02] MEDS: OXYTOCIN 30 UNITS/500 ML NS 30 UNIT in SALINE 1 500ML.BAG IV SCH (03:37)
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
[2018-07-02] MEDS ORDERED: CITRIC ACID-SODIUM CITRATE 15 ML CUP PO ONE (05:59)
[2018-07-02] MEDS ORDERED: OXYTOCIN 10 UNIT/ML 1 ML VIAL ONE (06:21)
[2018-07-02] MEDS ORDERED: PHENYLEPHRINE-0.9% NACL SYG 1 MG/10 ML SYRINGE ONE (06:21)
[2018-07-02] MEDS ORDERED: CHLOROPROCAINE 3% 30 MG/ML 20 ML VIAL ONE (06:21)
[2018-07-02] MEDS ORDERED: DEXAMETHASONE SOD PHOS (MDV) 100 MG/10 ML VIAL ONE (06:21)
[2018-07-02] MEDS ORDERED: ONDANSETRON 4 MG/2 ML VIAL ONE (06:21)
[2018-07-02] MEDS ORDERED: MORPHINE SULFATE (PF) 0.3 MG/0.3 ML SYR ONE (06:21)
--- NOTE | 2018-07-02 07:08 | P.OP ---
Date of Procedure: 07/02/18 Preoperative Diagnosis: Intrauterine at term: Uncontrolled hypertension Postoperative Diagnosis: Same Procedure(s) Performed: Primary low transverse section via Pfannenstiel Anesthesia: epidural Surgeon: Bhupendra Coronel District Supervisor #1: Brielle Nielsen Estimated Blood Loss (ml): 450 IV fluids (ml): 600 Urine output (ml): 600 Pathology: other (Placenta) Condition: stable Disposition: floor Operative Findings: Female scores of 7 and 9 at one and 5 minutes respectively and weight of 7 lbs. 12 oz. Description of Procedure: Patient was taken to the operating suite where a epidural anesthetic was found be adequate. She was prepped and draped in normal sterile fashion placed in dorsal supine position with leftward tilt. Initially a Pfannenstiel skin incision was made and this incision was then carried through to underlying layer of the fascia was second knife. Fascia was then nicked in the midline and this opening was extended laterally with Kolb scissors. Superior and inferior aspect of this incision were then grasped tented up and bluntly and sharply dissected off the rectus muscles. Rectus muscles were then divided the midline and sharp dissection through peritoneum was made. This opening was then extended superiorly and inferiorly with good visualization of both bowel bladder. Bladder blade was then placed in the bladder flap identified. It was entered sharply with Metzenbaum scissors and this opening was extended across face the uterus with Metzenbaum scissors bluntly dissecting the bladder out of the operative field. Knife was then used to incise uterus and this opening was extended bluntly. Head was then atraumatically delivered from left occiput transverse position and significant Was noted. Once baby's head was delivered mouth nares were bulb suctioned and the remainder the baby was delivered gentle downward upper traction. Umbilical cord was then clamped cut usual fashion an nursery personnel was present to assume care. Placenta was then delivered intact and Pitocin was added to the IV. Uterus was then exteriorized cleared of clots and debris and closed in 2 layers with 0 Vicryl suture. Once excellent hemostasis was obtained blood and debris was suctioned from the posterior cul-de-sac and the uterus was reinserted into the abdomen. Peritoneal layer was then closed with 0 Vicryl suture. Fascial layer was closed 0 Vicryl suture. One layer of 3-0 Vicryl was placed in deep subcuticular tissues to reapproximate skin and close that space. Skin was then closed with 3-0 Vicryl. Sponge, lap, needle counts were all correct 2. Patient was then taken to the recovery room in stable and satisfactory condition.
[2018-07-02] MEDS ORDERED: ZOLPIDEM 5 MG TAB PO PRN (07:47)
[2018-07-02] MEDS ORDERED: diphenhydrAMINE 50 MG/ML 1 ML VIAL IVP PRN ×2 (07:47)
[2018-07-02] MEDS ORDERED: METOCLOPRAMIDE 5 MG/ML 2 ML VIAL IVP PRN (07:47)
[2018-07-02] MEDS ORDERED: NALOXONE 0.4 MG/ML 1 ML VIAL IV PRN (07:47)
[2018-07-02] MEDS ORDERED: diphenhydrAMINE 25 MG CAP PO PRN (07:47)
[2018-07-02] MEDS ORDERED: ACETAMINOPHEN TAB 325 MG TAB PO PRN (07:47)
[2018-07-02] MEDS ORDERED: ONDANSETRON 4 MG/2 ML VIAL IVP PRN (07:47)
[2018-07-02] MEDS ORDERED: diphenhydrAMINE 50 MG CAP PO PRN (07:47)
[2018-07-02] MEDS: LACTATED RINGERS 1,000 ML IV SCH ×4 (08:21→21:19)
[2018-07-02] MEDS: HYDROmorphone 1 MG/ML 1 ML SYRINGE IVP PRN (08:22)
[2018-07-02] MEDS ORDERED: LABETALOL 5 MG/ML VIAL MDV IVP STA (08:59)
[2018-07-02] MEDS ORDERED: LABETALOL 5 MG/ML VIAL MDV IVP PRN ×3 (09:00)
[2018-07-02] MEDS: LABETALOL 100 MG TAB PO SCH ×2 (11:40→21:05)
[2018-07-02] MEDS ORDERED: ALBUTEROL NEBULIZED 2.5 MG/3 ML INHALATION PRN (13:42)
[2018-07-02 14:27] LABS: ALT 22 U/L (9-52); AST 24 U/L (14-36); Albumin 2.7 g/dL (3.5-5.0); Alkaline Phosphatase 159 U/L (38-126); Anion Gap 8 mmol/L; Blood Urea Nitrogen 5 mg/dL (7-17); Calcium 8.2 mg/dL (8.4-10.2); Carbon Dioxide 22 mmol/L (22-30); Chloride 108 mmol/L (98-107); Glucose 141 mg/dL (74-99); Potassium 3.8 mmol/L (3.5-5.1); Sodium 138 mmol/L (137-145); Total Bilirubin 0.3 mg/dL (0.2-1.3); Total Protein 5.5 g/dL (6.3-8.2)
[2018-07-02] MEDS: KETOROLAC 30 MG/ML 1 ML VIAL IVP PRN ×2 (15:45→21:14)
--- NOTE | 2018-07-02 19:41 | CONS ---
CONSULTATION REASON FOR CONSULTATION: Advice regarding hypertension and multiple medical issues requested by Dr. Coronel. HISTORY OF PRESENT ILLNESS: This 22-year-old woman with past medical history of asthma, pneumonia, not being followed by any primary care physician in the outpatient setting was admitted after section. The patient was noted to have uncontrolled hypertension prior and especially after inducing. The patient was given hydralazine IV after delivery. Patient also started on albuterol. There is no history of fever, rigors or chills. No history of headache, loss of consciousness, seizures at this time. PAST MEDICAL HISTORY: History of asthma, pneumonia. MEDICATIONS: Prior to admission include home medications are: 1. vitamins. 2. DuoNeb q.i.d. and p.r.n. 3. Ventolin HFA Inhaler. ALLERGIES: ADDERALL AND LAMICTAL. FAMILY HISTORY: No history of heart disease or strokes in the family. SOCIAL HISTORY: No history of smoking. No history of alcohol intake. REVIEW OF SYSTEMS: ENT: No diminished vision. No diminished hearing. CARDIOVASCULAR: No angina or palpitations. RESPIRATORY: As mentioned earlier. GI: As mentioned earlier. no dysuria. Central nervous system: No numbness or weakness. ALLERGY/IMMUNOLOGY: No asthma or hayfever. MUSCULOSKELETAL: As mentioned earlier. HEMATOLOGY/ONCOLOGY: No history of anemia. ENDOCRINE: No history of diabetes or hypothyroidism. CONSTITUTIONAL: As mentioned earlier. Dermatology: Negative. Rheumatology: Negative. Psychiatry: As mentioned earlier. PHYSICAL EXAMINATION: GENERAL: Alert and oriented x3. Pulse is 106. Blood pressure is 146/81, respiration 15, temperature is 97 degrees, pulse ox 94% on room air. HEENT: Conjunctivae normal. Oral mucosa moist. Neck is no jugular venous distention. No lymph node enlargement. Cardiovascular: S1, S2 muffled. Respiratory: Breath sounds diminished in the bases. Bilateral scattered rhonchi. ABDOMEN: Soft. Status post section. No mass. Legs: No edema. No swelling. CENTRAL NERVOUS SYSTEM: Cranial nerves 2 thru 12 intact. Moves all 4 limbs. No focal deficits. SKIN: No ulcer, rash or bleeding. JOINTS: No active deforming arthropathy. LABS: At this time shows WBC 11.2, hemoglobin 10.2, sodium 130, potassium 3.8 and glucose 141 and alkaline phosphatase 159, albumin is 2.7. ASSESSMENT: 1. Status post primary low-transverse section. 2. Uncontrolled hypertension. 3. Rule out urinary tract infection. 4. Mild hypoalbuminemia. 5. Increased WBC. 6. Anemia of . 7. History of asthma. 8. History of pneumonia. RECOMMENDATIONS AND DISCUSSION: In this 22-year-old woman who presented with multiple medical issues, at this time I recommend to continue current medications, management and symptomatic treatment. Otherwise, at this time, I recommend continue the labetalol and CMP has been noted. The patient may be discharged on the Labetalol once she is stable. Otherwise, we will follow the patient closely with you. Thank you, Dr. Coronel, for letting us participate in the care of this patient. MMMIKELL / IJN: [id number] / BEE
[2018-07-02] MEDS: SENNOSIDES-DOCUSATE SODIUM 1 EACH TAB PO SCH ×2 (20:19→21:19)
[2018-07-02] MEDS: IPRATROPIUM-ALBUTEROL 3 ML NEB INHALATION SCH (23:12)
[2018-07-03] MEDS: OXYTOCIN 30 UNITS/500 ML NS 30 UNIT in SALINE 1 500ML.BAG IV SCH (01:23)
[2018-07-03] MEDS: HYDROmorphone 1 MG/ML 1 ML SYRINGE IVP PRN (04:16)
[2018-07-03 06:43] LABS: Anisocytosis Slight; Basophils % (A) 0 %; Eosinophils # (A) 0.1 k/uL (0-0.7); Eosinophils % (A) 1 %; HCT 27.7 % (34.0-46.0); HGB 8.9 gm/dL (11.4-16.0); Hypochromasia Moderate; Lymphocytes # (A) 1.1 k/uL (1.0-4.8); Lymphocytes % (A) 9 %; MCH 28.3 pg (25.0-35.0); MCHC 32.3 g/dL (31.0-37.0); MCV 87.6 fL (80.0-100.0); Mean Platelet Volume 7.9; Monocytes # (A) 0.8 k/uL (0-1.0); Monocytes % (A) 6 %; Neutrophils # (A) 10.2 k/uL (1.3-7.7); Neutrophils % (A) 82 %; Platelet Count 303 k/uL (150-450); RBC 3.16 m/uL (3.80-5.40); RDW 16.5 % (11.5-15.5); WBC 12.4 k/uL (4.0-11.0)
[2018-07-03] MEDS: KETOROLAC 30 MG/ML 1 ML VIAL IVP PRN (07:13)
[2018-07-03] MEDS: IPRATROPIUM-ALBUTEROL 3 ML NEB INHALATION SCH ×3 (08:35→19:35)
[2018-07-03] MEDS: LABETALOL 100 MG TAB PO SCH ×2 (09:04→20:46)
[2018-07-03] MEDS: HYDROcodone/APAP 7.5-325MG 1 EACH TAB PO PRN ×3 (09:04→21:13)
--- NOTE | 2018-07-03 11:57 | P.PNOBGPC ---
Subjective - Subjective Principal diagnosis: Postop day 1 Interval history: Overall patient is doing very well. She is ambulating, voiding and she is tolerating her diet. Patient reports: Reports appetite normal, Reports voiding normally, Reports pain well controlled, Reports ambulating normally : doing well Objective - Vital Signs Latest vital signs: Vital Signs Temp Pulse Pulse Resp BP Pulse Ox 07/03/18 08:44 86 07/03/18 08:35 82 07/03/18 07:48 98.2 F 99 16 152/82 98 07/03/18 04:30 138/81 07/03/18 04:00 98.9 F 104 H 16 161/98 97 07/03/18 00:00 98.5 F 99 16 133/82 95 07/02/18 20:00 98.7 F 107 H 16 141/76 98 07/02/18 16:00 97 F L 94 15 139/68 98 07/02/18 12:00 97.0 F L 106 H 15 146/81 96 Intake and Output 07/02/18 07/03/18 07/03/18 22:59 06:59 14:59 Output Total 2800 1400 Balance -2800 -1400 Output: Urine 2800 1400 Uretheral (Echeverria) 600 Other: # Voids 1 2 - Exam Lungs: bilateral: normal Chest: Normal S1, Normal S2 Extremities: Present: normal Abdomen: Present: normal appearance, soft. Absent: distention, tenderness Incision: Present: normal, dry, intact Uterus: Present: normal, firm - Labs Labs: Abnormal Lab Results - Last 24 Hours (Table) 07/02/18 07/03/18 Range/Units 13:54 06:20 WBC 12.4 H (4.0-11.0) k/uL RBC 3.16 L (3.80-5.40) m/uL Hgb 8.9 L (11.4-16.0) gm/dL Hct 27.7 L (34.0-46.0) % RDW 16.5 H (11.5-15.5) % Neutrophils # 10.2 H (1.3-7.7) k/uL Chloride 108 H (98-107) mmol/L BUN 5 L (7-17) mg/dL Glucose 141 H (74-99) mg/dL Calcium 8.2 L (8.4-10.2) mg/dL Alkaline Phosphatase 159 H (38-126) U/L Total Protein 5.5 L (6.3-8.2) g/dL Albumin 2.7 L (3.5-5.0) g/dL
[2018-07-03] MEDS: IBUPROFEN 600 MG TAB PO PRN ×2 (12:37→18:40)
--- NOTE | 2018-07-03 18:39 | PN ---
PROGRESS NOTE DATE OF SERVICE: 07/03/2018 This 22-year-old woman was admitted after section, also had hypertension. Patient is on . No chest pain. No palpitations. No fever. EXAM: Alert and oriented x3. Blood pressure is 140/70, respiration 16, temp 98.2. Pulse ox normal. HEENT: Conjunctivae normal. NECK: No jugular venous distention. CARDIOVASCULAR: S1, S2. RESPIRATIONS: Breath sounds diminished in the bases. No rhonchi and no crackles. Abdomen is soft, obese. LEGS: No edema. No swelling. LABS: WBC 12.2, hemoglobin is 8.9, BMI is 47. ASSESSMENT: 1. Status post low-transverse section. 2. Uncontrolled hypertension. 3. Mild hypoalbuminemia. 4. Increased WBC. 5. Anemia of . 6. History of asthma. 7. History of pneumonia. 8. Obesity with body mass index 47. RECOMMENDATIONS AND DISCUSSION: In this 22-year-old woman who presented after Caesarean section, I would recommend to continue Labetalol, monitor closely. No added salt diet. Recommend close follow up with the primary physician in the outpatient setting. Cultures are negative so far. Further recommendations to follow. MMODL / IJN: [id number] / MTDD
[2018-07-03] MEDS: SENNOSIDES-DOCUSATE SODIUM 1 EACH TAB PO SCH ×2 (20:49→23:19)
[2018-07-04] MEDS: IBUPROFEN 600 MG TAB PO PRN ×3 (02:44→19:43)
[2018-07-04] MEDS: OXYTOCIN 30 UNITS/500 ML NS 30 UNIT in SALINE 1 500ML.BAG IV SCH (03:05)
--- NOTE | 2018-07-04 07:00 | P.PNOBGPC ---
Subjective - Subjective Principal diagnosis: Postop day 2 Interval history: Overall tearing and is doing very well. She is ambulating, voiding and tolerating her diet she does have incisional pain. Her incision is otherwise clean dry and intact. She also has pain and her epidural site. No other gross findings. Her blood pressures remained slightly elevated will plan to continue the labetalol at current doses and adjust as needed. She will plan to be discharged home tomorrow as long as everything remains stable. All the questions are answered for her at this time. She does deny headache, epigastric pain and/or visual changes. Patient reports: Reports appetite normal, Reports voiding normally, Reports pain well controlled, Reports ambulating normally : doing well Objective - Vital Signs Latest vital signs: Vital Signs Temp Pulse Pulse Resp BP Pulse Ox 07/04/18 04:00 16 157/72 07/03/18 23:26 85 16 147/88 07/03/18 23:24 98.2 F 85 16 147/88 07/03/18 20:00 154/85 07/03/18 15:25 98.1 F 72 16 148/82 07/03/18 12:00 98.3 F 90 16 142/78 07/03/18 08:44 86 07/03/18 08:35 82 07/03/18 07:48 98.2 F 99 16 152/82 98 Intake and Output 07/03/18 07/03/18 07/04/18 14:59 22:59 06:59 Other: # Voids 2 - Exam Lungs: bilateral: normal Chest: Normal S1, Normal S2 Extremities: Present: normal Abdomen: Present: normal appearance, soft. Absent: distention, tenderness Incision: Present: normal, dry, intact Uterus: Present: normal, firm
[2018-07-04] MEDS: SENNOSIDES-DOCUSATE SODIUM 1 EACH TAB PO SCH ×2 (08:24→21:43)
[2018-07-04] MEDS: LABETALOL 100 MG TAB PO SCH ×2 (09:01→11:07)
[2018-07-04] MEDS: HYDROcodone/APAP 7.5-325MG 1 EACH TAB PO PRN ×3 (09:02→21:42)
[2018-07-04] MEDS: IPRATROPIUM-ALBUTEROL 3 ML NEB INHALATION SCH ×3 (09:28→21:13)
--- NOTE | 2018-07-04 20:09 | PN ---
PROGRESS NOTE DATE OF SERVICE: 07/04/2018 This 22-year-old woman is admitted after section is being closely monitored. The patient's blood pressure is elevated. The dose of Labetalol has been increased to 100 twice daily. No chest pain. No palpitations. No fever. EXAM: Alert and oriented x3. Pulse is 91, blood pressure 130/80, respiratory 20, temperature 98.2, pulse ox normal. HEENT: Conjunctivae normal. NECK: No jugular venous distention. CARDIOVASCULAR: S1, S2 muffled. RESPIRATORY: Breath sounds diminished in the bases. No rhonchi. No crackles. ABDOMEN: Soft, nontender. LEGS: No edema. NERVOUS SYSTEM: No focal deficits. LAB STUDIES: WBC 2.9, hemoglobin 10.2, sodium 138, potassium 3.8. UA noted. ASSESSMENT: 1. Status post low-transverse section. 2. Uncontrolled hypertension. 3. Mild hypoalbuminemia. 4. Increased WBC. 5. Anemia of . 6. History of asthma. 7. History of pneumonia. 8. Obesity with body mass index of 47. RECOMMENDATIONS AND DISCUSSION: I recommend to continue current management, continue with symptomatic treatment. I will increase the dose of labetalol. Continue to monitor the patient. The patient will need outpatient followup for evaluation of hypertension, otherwise continue to monitor. Closely follow with [facility]. DVT prophylaxis. MMODL / IJN: [id number] /
[2018-07-04] MEDS ORDERED: LABETALOL 100 MG TAB PO SCH (21:00)
[2018-07-05] MEDS: LABETALOL 100 MG TAB PO SCH ×2 (00:30→08:01)
[2018-07-05] MEDS: IBUPROFEN 600 MG TAB PO PRN ×2 (01:52→11:29)
[2018-07-05] MEDS: SENNOSIDES-DOCUSATE SODIUM 1 EACH TAB PO SCH (08:00)
[2018-07-05] MEDS: HYDROcodone/APAP 7.5-325MG 1 EACH TAB PO PRN (08:00)
--- NOTE | 2018-07-05 08:20 | P.DS ---
Providers Date of admission: 07/01/18 22:50 Expected date of discharge: 07/05/18 Attending physician: Bhupendra Coronel Consults: 07/02/18 09:57 Consult Physician Stat Consulting Provider: Cristobal Michael Consult Reason/Comments: Blood pressure management Do you want consulting provider notified?: Already Contacted Primary care physician: Stated None Hospital Course: Patient is doing very well postop day 3. She is involuting, voiding, and she is tolerating her diet. She voices no complaints and requests discharged home today. Her vital signs are stable and her blood pressures initially improved 130s over 80s. We'll plan discharged home later today. On physical exam heart regular, lungs clear, extremities are without pain to have 1+ pitting edema but she is voiding without difficulty. Abdomen soft incision is clean dry and intact and uterus is firm below the umbilicus. Lochia is also reported to be light. Assessment postop day 3. Plan discharged home follow up with me in 1 week. Discharge instructions were thoroughly reviewed and all questions were answered for her prior to her discharge. Prescriptions for Motrin, or cold, and labetalol were forwarded to her pharmacy. Patient Condition at Discharge: Good Plan - Discharge Summary New Discharge Prescriptions: New HYDROcodone/APAP 5-325MG [[place] 5-325] 1 tab PO Q4HR PRN #30 tab PRN Reason: Pain Ibuprofen [Motrin] 600 mg PO Q6HR PRN #30 tab PRN Reason: Pain Labetalol [Trandate] 100 mg PO BID #60 tab No Action Albuterol Inhaler [Ventolin Hfa Inhaler] 1 - 2 puff INHALATION RT-QID PRN PRN Reason: Shortness Of Breath Pnv No.95/Ferrous Fum/Folic AC [ Multivitamin Tablet] 1 tab PO DAILY Ipratropium-Albuterol Nebulize [Duoneb 0.5 mg-3 mg/3 ml Soln] 3 ml INHALATION RT-Q4H PRN PRN Reason: Shortness Of Breath Discharge Medication List Albuterol Inhaler [Ventolin Hfa Inhaler] 1 - 2 puff INHALATION RT-QID PRN [History] Pnv No.95/Ferrous Fum/Folic AC [ Multivitamin Tablet] 1 tab PO DAILY [History] Ipratropium-Albuterol Nebulize [Duoneb 0.5 mg-3 mg/3 ml Soln] 3 ml INHALATION RT -Q4H PRN 05/06/18 [History] HYDROcodone/APAP 5-325MG [[place] 5-325] 1 tab PO Q4HR PRN #30 tab 07/05/18 [Rx] Ibuprofen [Motrin] 600 mg PO Q6HR PRN #30 tab 07/05/18 [Rx] Labetalol [Trandate] 100 mg PO BID #60 tab 07/05/18 [Rx] Follow up Appointment(s)/Referral(s): Bhupendra Coronel DO [Doctor of Osteopathic Medicine] - 1 Week Activity/Diet/Wound Care/Special Instructions: No heavy lifting, limit stairs and driving, and pelvic rest. She'll follow up in our office later this week for blood pressure check and then again next week with me. She is aware should she have any headaches, severe epigastric pain or visual changes she needs to report to the emergency room or notify our office. All the questions were answered for her prior to her discharge. She is stable for discharge this time. Discharge Disposition: HOME SELF-CARE
[2018-07-05 09:08] VITALS: BP 146/94; PULSE 88; RESP 18; TEMP 98.7
[2018-07-05] MEDS: IPRATROPIUM-ALBUTEROL 3 ML NEB INHALATION SCH ×2 (09:17→13:54)
== END 2018-07-05 13:15 | disposition home or self-care (01) | DRG 787 ==
LOC: FBPOP 22:23 → 4FBP 22:50
PROVIDERS: ADMIT Obstetrics & Gynecology; ATTEND Obstetrics & Gynecology
PROC: 10D00Z1 Extraction of Products of Conception, Low, Open Approach (ICD-10-PCS; principal; 2018-07-02 06:55)
DX: O16.4 Unspecified maternal hypertension, complicating childbirth (principal); Z68.42 Body mass index [BMI] 45.0-49.9, adult; Z3A.38 38 weeks gestation of pregnancy; Z37.0 Single live birth; O99.214 Obesity complicating childbirth; E66.9 Obesity, unspecified; E88.09 Other disorders of plasma-protein metabolism, not elsewhere classified; O99.02 Anemia complicating childbirth; D64.9 Anemia, unspecified; J45.909 Unspecified asthma, uncomplicated; O99.52 Diseases of the respiratory system complicating childbirth; O99.284 Endocrine, nutritional and metabolic diseases complicating childbirth; Z87.01 Personal history of pneumonia (recurrent); Z88.8 Allergy status to other drugs, medicaments and biological substances
CPT/HCPCS: 59025; 80053; 81001; 82565; 82570; 83615; 84112; 84156; 84450; 84460; 84520; 84550; 85025; 86850; 86900; 86901; 88307; 94640; 99213; 99215

== ENCOUNTER 2020-04-09 22:58 | Emergency (ER) | payer OTHER ==
[2020-04-09 23:03] VITALS: RESP 18; TEMP 98.3
--- NOTE | 2020-04-09 23:26 | ED ---
SOB HPI - General Chief Complaint: Shortness of Breath Stated Complaint: SOB Time Seen by Provider: 04/09/20 23:12 Source: patient Mode of arrival: ambulatory Limitations: no limitations - History of Present Illness Initial Comments: 's patient is a 24-year-old woman with history of asthma who presents with complaint of cough, wheezing, and shortness of breath. The patient states that she started having some upper respiratory symptoms and then what seemed like mild flareup of her asthma starting nearly 2 weeks ago. She states that her symptoms progressed and she did go to the other hospital in [facility] where she was started on prednisone. She states she has taken 3 days worth of the prednisone, approximately 70 mg per day. She states that she is not feeling any better in fact may be feeling a little worse. She denies noting fever or chills. She denies chest pain other than it feels tight but is relieved when she takes her Combivent. Patient states that the cough is largely nonproductive. No leg pain or swelling. No change in urination or bowel movements. MD Complaint: shortness of breath, cough Onset/Timin -: week(s) Severity scale (1-10): 0 Consistency: constant Improves With: bronchodilators Worsens With: nothing Known History Of: asthma Context: recent URI Associated Symptoms: cough Treatments Prior to Arrival: bronchodilator - Related Data Home Oxygen Therapy: No Home Medications Medication Instructions Recorded Confirmed Albuterol Inhaler (Mhu) [Ventolin 1 - 2 puff INHALATION RT-QID PRN 03/31/18 07/01/18 Hfa Inhaler (Mhu)] Pnv No.95/Ferrous Fum/Folic AC 1 tab PO DAILY 03/31/18 07/01/18 [ Multivitamin Tablet] Ipratropium-Albuterol Nebulize 3 ml INHALATION RT-Q4H PRN 05/06/18 07/01/18 [Duoneb 0.5 mg-3 mg/3 ml Soln] Previous Rx's Medication Instructions Recorded HYDROcodone/APAP 5-325MG [Opheim 1 tab PO Q4HR PRN #30 tab 07/05/18 5-325] Ibuprofen [Motrin] 600 mg PO Q6HR PRN #30 tab 07/05/18 Labetalol [Trandate] 100 mg PO BID #60 tab 07/05/18 Azithromycin [Zithromax Z-pack (6 250 mg PO DIRECTED #6 tab 04/10/20 tabs)] Allergies Allergy/AdvReac Type Severity Reaction Status Date / Time amphetamine aspartate AdvReac Confusion Verified 04/09/20 23:03 [From Adderall] amphetamine sulfate AdvReac Confusion Verified 04/09/20 23:03 [From Adderall] dextroamphetamine saccharate AdvReac Confusion Verified 04/09/20 23:03 [From Adderall] dextroamphetamine sulfate AdvReac Confusion Verified 04/09/20 23:03 [From Adderall] lamotrigine [From Lamictal] AdvReac Hallucinati Verified 04/09/20 23:03 ons Review of Systems ROS Statement: Those systems with pertinent positive or pertinent negative responses have been documented in the HPI. ROS Other: All systems not noted in ROS Statement are negative. Constitutional: Denies: fever, chills ENT: Reports: congestion Respiratory: Reports: cough, dyspnea, wheezes. Denies: hemoptysis Cardiovascular: Denies: chest pain, palpitations, orthopnea, edema, syncope Gastrointestinal: Denies: abdominal pain, nausea, vomiting, diarrhea, constipation Genitourinary: Denies: dysuria, hematuria Musculoskeletal: Denies: back pain Skin: Denies: rash Neurological: Denies: headache, weakness Past Medical History Past Medical History: Asthma, Pneumonia History of Any Multi-Drug Resistant Organisms: None Reported Past Surgical History: No Surgical Hx Reported Past Anesthesia/Blood Transfusion Reactions: No Reported Reaction Past Psychological History: No Psychological Hx Reported Past Alcohol Use History: None Reported Past Drug Use History: None Reported - Past Family History Mother Family Medical History: No Reported History General Exam Limitations: no limitations General appearance: alert, in no apparent distress Head exam: Present: atraumatic, normocephalic Eye exam: Present: normal appearance. Absent: scleral icterus, conjunctival injection Respiratory exam: Present: wheezes. Absent: respiratory distress, rales, rhonchi, stridor, accessory muscle use, decreased breath sounds, prolonged expiratory Cardiovascular Exam: Present: regular rate, normal rhythm, normal heart sounds. Absent: systolic murmur, diastolic murmur, rubs, gallop GI/Abdominal exam: Present: soft. Absent: distended, tenderness, guarding, rebound, rigid, mass Extremities exam: Present: normal inspection, normal capillary refill. Absent: pedal edema, calf tenderness Back exam: Present: normal inspection. Absent: CVA tenderness (R), CVA tenderness (L) Neurological exam: Present: alert Skin exam: Present: warm, dry, intact, normal color. Absent: rash Course Vital Signs 04/09/20 04/09/20 23:00 23:49 Temperature 98.3 F Pulse Rate 111 H Respiratory 18 18 Rate Blood Pressure 145/89 O2 Sat by Pulse 96 Oximetry Disposition Clinical Impression: Asthmatic bronchitis Disposition: HOME SELF-CARE Condition: Good Instructions (If sedation given, give patient instructions): Acute Bronchitis (ED) Prescriptions: Azithromycin [Zithromax Z-pack (6 tabs)] 250 mg PO DIRECTED #6 tab Is patient prescribed a controlled substance at d/c from ED?: No Referrals: Alan Bedoya Jr, DO [Primary Care Provider] - 1-2 days
--- NOTE | 2020-04-09 23:46 | XR ---
EXAMINATION TYPE: XR chest 2V DATE OF EXAM: 04/09/2020 COMPARISON: 04/22/2018 HISTORY: Short of breath TECHNIQUE: FINDINGS: Heart and mediastinum are normal. Lungs are clear. Diaphragm is normal. Bony thorax appears normal. IMPRESSION: Normal chest. No change.
[2020-04-10 00:09] VITALS: BP 142/80; PULSE 99
== END 2020-04-10 00:09 | disposition home or self-care (01) ==
LOC: EC 22:58
DX: J45.909 Unspecified asthma, uncomplicated (principal); Z88.8 Allergy status to other drugs, medicaments and biological substances; Z20.828 Contact with and (suspected) exposure to other viral communicable diseases; Z87.01 Personal history of pneumonia (recurrent)
CPT/HCPCS: 71046; 99285; U0003

== ENCOUNTER → 2021-02-21 | Outpatient (CLI) | payer OTHER ==
--- NOTE | 2021-02-22 10:24 | US ---
EXAMINATION TYPE: US pelvis complete transvag DATE OF EXAM: 02/21/2021 COMPARISON: US 2016 CLINICAL HISTORY: R10.2 pelvic pain, N93.8 DUB. TECHNIQUE: Transvaginal (TV) and Transabdominal (TA) . Transabdominal sonographic images of the pel vis were acquired. Transvaginal sonographic images were medically necessary to better assess the fol lowing anatomy: ovaries Date of LMP: about one month ago per patient. EXAM MEASUREMENTS: Uterus: 9.6 x 4.3 x 5.3 cm Endometrial Stripe: 1.2 cm Right Ovary: 3.6 x 3.9 x 2.6 cm Left Ovary: 3.0 x 3.1 x 1.7 cm 1. Uterus: Anteverted wnl 2. Endometrium: wnl 3. Right Ovary: wnl 4. Left Ovary: wnl 5. Bilateral Adnexa: wnl 6. Posterior cul-de-sac: small amount of free fluid IMPRESSION: Small amount of free fluid in the pelvis. No abnormal adnexal mass. Endometrial stripe me asures 1.2 cm correlate with the phase of the patient's mental cycle.
== END | disposition home or self-care (01) ==
LOC: RADUSWWP 16:27
PROVIDERS: ATTEND Obstetrics & Gynecology
DX: R10.2 Pelvic and perineal pain (principal)
CPT/HCPCS: 76830; 76856

== ENCOUNTER 2021-05-15 10:43 | Emergency (ER) | payer OTHER ==
[2021-05-15] MEDS ORDERED: SODIUM CHLORIDE 0.9% 50 ML IVPB ONE (12:00)
[2021-05-15] MEDS ORDERED: IBUPROFEN 600 MG TAB PO STA (12:01)
[2021-05-15] MEDS ORDERED: CASIRIVIMAB (REGN10933) (EUA) 600 MG, IMDEVIMAB (REGN10987) (EUA) 600 MG in SODIUM CHLO... IVPB ONE (12:30)
--- NOTE | 2021-05-15 12:53 | ED ---
URI HPI - General Chief Complaint: Upper Respiratory Infection Stated Complaint: COVID +, revisit Time Seen by Provider: 05/15/21 11:36 Source: patient, RN notes reviewed Mode of arrival: ambulatory Limitations: no limitations - History of Present Illness Initial Comments: 25-year-old female presents emergency Department chief complaint of COVID-19. Patient states she was seen here yesterday and tested positive. Symptoms started a few days prior. Patient states she was off monoclonal antibodies yesterday but declined was here today for mottling bites. She states she's had fever or chills bodyaches no recent Motrin did take Tylenol 2 hours ago. - Related Data Home Medications Medication Instructions Recorded Confirmed Ipratropium-Albuterol Nebulize 3 ml INHALATION RT-Q4H PRN 05/06/18 05/15/21 [Duoneb 0.5 mg-3 mg/3 ml Soln] Acetaminophen/Diphenhydramine 2 tab PO HS PRN 05/15/21 05/15/21 [Tylenol PM 500-25mg] Albuterol Sulfate [Proair Hfa] 2 puff INHALATION RT-Q6H PRN 05/15/21 05/15/21 Fluticasone/Salmeterol [Advair 1 puff INHALATION RT-BID 05/15/21 05/15/21 250-50 Diskus] Allergies Allergy/AdvReac Type Severity Reaction Status Date / Time amphetamine aspartate AdvReac Confusion Verified 05/15/21 12:25 [From Adderall] amphetamine sulfate AdvReac Confusion Verified 05/15/21 12:25 [From Adderall] dextroamphetamine saccharate AdvReac Confusion Verified 05/15/21 12:25 [From Adderall] dextroamphetamine sulfate AdvReac Confusion Verified 05/15/21 12:25 [From Adderall] lamotrigine [From Lamictal] AdvReac Hallucinati Verified 05/15/21 12:25 ons Review of Systems ROS Statement: Those systems with pertinent positive or pertinent negative responses have been documented in the HPI. ROS Other: All systems not noted in ROS Statement are negative. Past Medical History Past Medical History: Asthma, Pneumonia History of Any Multi-Drug Resistant Organisms: None Reported Past Surgical History: No Surgical Hx Reported Past Anesthesia/Blood Transfusion Reactions: No Reported Reaction Past Psychological History: Anxiety, Bipolar, Depression Smoking Status: Never smoker Past Alcohol Use History: None Reported Past Drug Use History: None Reported - Past Family History Mother Family Medical History: No Reported History General Exam Limitations: no limitations General appearance: alert, in no apparent distress Head exam: Present: atraumatic, normocephalic, normal inspection Eye exam: Present: normal appearance, PERRL, EOMI. Absent: scleral icterus, conjunctival injection, periorbital swelling ENT exam: Present: normal exam, normal oropharynx, mucous membranes moist Neck exam: Present: normal inspection, full ROM. Absent: tenderness, meningismus, lymphadenopathy Respiratory exam: Present: normal lung sounds bilaterally. Absent: respiratory distress, wheezes, rales, rhonchi, stridor Cardiovascular Exam: Present: regular rate, normal rhythm, normal heart sounds. Absent: systolic murmur, diastolic murmur, rubs, gallop, clicks GI/Abdominal exam: Present: soft, normal bowel sounds. Absent: distended, tenderness, guarding, rebound, rigid Neurological exam: Present: alert Course Vital Signs 05/15/21 11:00 Temperature 100.6 F H Pulse Rate 105 H Respiratory 18 Rate Blood Pressure 113/73 O2 Sat by Pulse 94 L Oximetry Medical Decision Making - Medical Decision Making Patient did receive monoclonal antibodies be discharged in stable condition return parameters were discussed. Disposition Clinical Impression: COVID-19 Disposition: HOME SELF-CARE Condition: Stable Instructions (If sedation given, give patient instructions): Coronavirus Disease 2019 (COVID-19) Additional Instructions: Please return to the Emergency Department if symptoms worsen or any other concerns. Is patient prescribed a controlled substance at d/c from ED?: No Referrals: Alan Bedoya Jr, DO [Primary Care Provider] - 1-2 days Time of Disposition: 12:52
[2021-05-15 13:47] VITALS: BP 115/75; PULSE 92; RESP 16; TEMP 98.9
== END 2021-05-15 13:40 | disposition home or self-care (01) ==
LOC: EC 10:43
DX: U07.1 COVID-19 (principal); J45.909 Unspecified asthma, uncomplicated; F41.9 Anxiety disorder, unspecified; F31.9 Bipolar disorder, unspecified
CPT/HCPCS: 99283; Q0244

== ENCOUNTER 2021-07-29 07:56 | Emergency (ER) | payer OTHER ==
[2021-07-29 08:07] VITALS: BP 137/62; PULSE 100; RESP 20; TEMP 99
[2021-07-29] MEDS ORDERED: ACET/COD 300 MG/30 MG STARTER PACK 6 TAB BTL PO STA ×2 (08:23→08:26)
--- NOTE | 2021-07-29 08:26 | ED ---
ENT HPI - General Chief complaint: Dental/Oral Stated complaint: dental pain Time Seen by Provider: 07/29/21 08:08 Source: patient, RN notes reviewed Mode of arrival: ambulatory Limitations: no limitations - History of Present Illness Initial comments: 24-year-old female presented to the emergency department chief complaint abdominal pain, back pain. Patient states symptoms started yesterday. Patient states that she has left upper dental pain mild swelling. Patient states she felt like she twisted wrong she has low back pain does not radiate down. Primary on the left side denies any bowel, bladder incontinence or retention of saline seizures. - Related Data Home Medications Medication Instructions Recorded Confirmed Ipratropium-Albuterol Nebulize 3 ml INHALATION RT-Q4H PRN 05/06/18 05/15/21 [Duoneb 0.5 mg-3 mg/3 ml Soln] Acetaminophen/Diphenhydramine 2 tab PO HS PRN 05/15/21 05/15/21 [Tylenol PM 500-25mg] Albuterol Sulfate [Proair Hfa] 2 puff INHALATION RT-Q6H PRN 05/15/21 05/15/21 Fluticasone/Salmeterol [Advair 1 puff INHALATION RT-BID 05/15/21 05/15/21 250-50 Diskus] Previous Rx's Medication Instructions Recorded Cyclobenzaprine [Flexeril] 10 mg PO TID PRN #15 tab 07/29/21 Ibuprofen [Motrin] 600 mg PO Q8HR PRN #20 tab 07/29/21 Penicillin V Potassium [Pen Vee K] 500 mg PO QID #40 tablet 07/29/21 Allergies Allergy/AdvReac Type Severity Reaction Status Date / Time amphetamine aspartate AdvReac Confusion Verified 05/15/21 12:25 [From Adderall] amphetamine sulfate AdvReac Confusion Verified 05/15/21 12:25 [From Adderall] dextroamphetamine saccharate AdvReac Confusion Verified 05/15/21 12:25 [From Adderall] dextroamphetamine sulfate AdvReac Confusion Verified 05/15/21 12:25 [From Adderall] lamotrigine [From Lamictal] AdvReac Hallucinati Verified 05/15/21 12:25 ons Review of Systems ROS Statement: Those systems with pertinent positive or pertinent negative responses have been documented in the HPI. ROS Other: All systems not noted in ROS Statement are negative. Past Medical History Past Medical History: Asthma, Pneumonia History of Any Multi-Drug Resistant Organisms: None Reported Past Surgical History: No Surgical Hx Reported Past Anesthesia/Blood Transfusion Reactions: No Reported Reaction Past Psychological History: Anxiety, Bipolar, Depression Smoking Status: Never smoker Past Alcohol Use History: None Reported Past Drug Use History: None Reported - Past Family History Mother Family Medical History: No Reported History General Exam Limitations: no limitations General appearance: alert, in no apparent distress Head exam: Present: atraumatic, normocephalic, normal inspection ENT exam: Present: mucous membranes moist. Absent: normal exam, normal oropharynx (Swelling in the left upper, no drainable abscess, dental fracture noted) Neck exam: Present: normal inspection, full ROM. Absent: tenderness, meningismus, lymphadenopathy Respiratory exam: Present: normal lung sounds bilaterally. Absent: respiratory distress, wheezes, rales, rhonchi, stridor Cardiovascular Exam: Present: regular rate, normal rhythm, normal heart sounds. Absent: systolic murmur, diastolic murmur, rubs, gallop, clicks GI/Abdominal exam: Present: soft, normal bowel sounds. Absent: distended, tenderness, guarding, rebound, rigid Extremities exam: Present: other (Lower extremity strength equal bilaterally, equal color and warmth) Back exam: Present: full ROM, tenderness, muscle spasm, paraspinal tenderness. Absent: vertebral tenderness Neurological exam: Present: reflexes normal. Absent: motor sensory deficit Course Vital Signs 07/29/21 08:05 Temperature 99 F Pulse Rate 100 Respiratory 20 Rate Blood Pressure 137/62 O2 Sat by Pulse 96 Oximetry Medical Decision Making - Medical Decision Making Patient has left upper dental infection was started on oral antibiotics, pain control patient has lumbar strain with no red flag symptoms. Patient be treated with pain control, muscle relaxer return parameters were discussed patient received plan Disposition Clinical Impression: Dental abscess, Lumbar back pain Disposition: HOME SELF-CARE Condition: Stable Instructions (If sedation given, give patient instructions): Dental Abscess (ED) Additional Instructions: Please return to the Emergency Department if symptoms worsen or any other con cerns. Prescriptions: Cyclobenzaprine [Flexeril] 10 mg PO TID PRN #15 tab PRN Reason: Muscle Spasm Ibuprofen [Motrin] 600 mg PO Q8HR PRN #20 tab PRN Reason: Pain Penicillin V Potassium [Pen Vee K] 500 mg PO QID #40 tablet Is patient prescribed a controlled substance at d/c from ED?: No Referrals: Alan Bedoya Jr, [Primary Care Provider] - 1-2 days Time of Disposition: 08:26
== END 2021-07-29 08:32 | disposition home or self-care (01) ==
LOC: EC 07:56
DX: M54.59 Other low back pain (principal); K04.7 Periapical abscess without sinus; J45.909 Unspecified asthma, uncomplicated; F41.9 Anxiety disorder, unspecified; F31.9 Bipolar disorder, unspecified; Z88.1 Allergy status to other antibiotic agents
CPT/HCPCS: 99283

== ENCOUNTER 2021-10-09 12:59 | Emergency (ER) | payer OTHER ==
--- NOTE | 2021-10-09 13:42 | ED ---
Head Injury HPI - General Chief complaint: Head Injury Stated complaint: Head injury Time Seen by Provider: 10/09/21 13:04 Source: patient Mode of arrival: ambulatory Limitations: no limitations - History of Present Illness Initial comments: Patient is a 26-year-old female presenting with chief complaint of head injury. Patient states that 2 weeks ago she hit her head by walking into a door, the patient states that she was alarmed because she had no idea how it happened and has been having memory lapses. Prior to this incident she has had several e pisodes of projectile vomiting brought on at random. Patient states that she has had severe mood swings, she denies any suicidal or homicidal ideation. Patient states that these symptoms have caused severe anxiety and depression, and she has lost 40 pounds over the last 2 months. She denies any chest pain, shortness of breath, vision or hearing changes, visual or auditory hallucinations, abdominal pain, palpitations, dysuria, hematuria, urgency, frequency. - Related Data Home Medications Medication Instructions Recorded Confirmed Ipratropium-Albuterol Nebulize 3 ml INHALATION RT-Q4H PRN 05/06/18 05/15/21 [Duoneb 0.5 mg-3 mg/3 ml Soln] Acetaminophen/Diphenhydramine 2 tab PO HS PRN 05/15/21 05/15/21 [Tylenol PM 500-25mg] Albuterol Sulfate [Proair Hfa] 2 puff INHALATION RT-Q6H PRN 05/15/21 05/15/21 Fluticasone/Salmeterol [Advair 1 puff INHALATION RT-BID 05/15/21 05/15/21 250-50 Diskus] Previous Rx's Medication Instructions Recorded Cyclobenzaprine [Flexeril] 10 mg PO TID PRN #15 tab 07/29/21 Ibuprofen [Motrin] 600 mg PO Q8HR PRN #20 tab 07/29/21 Penicillin V Potassium [Pen Vee K] 500 mg PO QID #40 tablet 07/29/21 Allergies/Adverse reactions: Allergies Allergy/AdvReac Type Severity Reaction Status Date / Time amphetamine aspartate AdvReac Confusion Verified 05/15/21 12:25 [From Adderall] amphetamine sulfate AdvReac Confusion Verified 05/15/21 12:25 [From Adderall] dextroamphetamine saccharate AdvReac Confusion Verified 05/15/21 12:25 [From Adderall] dextroamphetamine sulfate AdvReac Confusion Verified 05/15/21 12:25 [From Adderall] lamotrigine [From Lamictal] AdvReac Hallucinati Verified 05/15/21 12:25 ons Review of Systems ROS Statement: Those systems with pertinent positive or pertinent negative responses have been documented in the HPI. ROS Other: All systems not noted in ROS Statement are negative. Past Medical History Past Medical History: Asthma, Pneumonia History of Any Multi-Drug Resistant Organisms: None Reported Past Surgical History: No Surgical Hx Reported Past Anesthesia/Blood Transfusion Reactions: No Reported Reaction Past Psychological History: Anxiety, Bipolar, Depression Smoking Status: Never smoker Past Alcohol Use History: None Reported Past Drug Use History: None Reported - Past Family History Mother Family Medical History: No Reported History General Exam Limitations: no limitations General appearance: alert, in no apparent distress Head exam: Present: atraumatic, normocephalic, normal inspection Eye exam: Present: normal appearance, EOMI. Absent: scleral icterus Neck exam: Present: normal inspection Respiratory exam: Present: normal lung sounds bilaterally. Absent: respiratory distress, wheezes, rales, rhonchi, stridor Cardiovascular Exam: Present: regular rate, normal rhythm, normal heart sounds. Absent: systolic murmur, diastolic murmur, rubs, gallop, clicks Neurological exam: Present: alert, oriented X3, CN II-XII intact Expanded Patient oriented to: Present: person, place, time Speech: Present: fluid speech Cranial nerves: EOM's Intact: Normal, Nystagmus: Normal, Facial Sensation: Normal Eye Response: (4) open spontaneously Motor Response: (6) obeys commands Verbal Response: (5) oriented Steven Total: 15 Psychiatric exam: Present: normal affect, normal mood Skin exam: Present: warm, dry, intact, normal color. Absent: rash Course Vital Signs 10/09/21 10/09/21 10/09/21 13:00 15:01 16:51 Temperature 97.8 F 98 F Pulse Rate 94 95 92 Respiratory 18 16 16 Rate Blood Pressure 119/78 124/72 119/87 O2 Sat by Pulse 98 96 97 Oximetry Medical Decision Making - Medical Decision Making Patient is a 26-year-old female presenting with chief complaint of head injury. Patient states that she walked into a door 2 weeks ago, she has been experiencing projectile vomiting, mood swings, memory relapses, and headaches. Lab work is unremarkable. Urine toxicology screen is positive for amphetamines, benzodiazepines, marijuana. CT of the brain shows no acute intracranial hemorrhage or midline shift, there is a finding to suggest Chiari type I malformation. Educated the patient on these findings. I instructed her to follow-up with PCP, neurology, and psychiatry. I discussed return parameters alarm symptoms. I answered all questions. Patient conveyed verbal understanding and agreed to the plan. I discussed this case with my attending Dr. Espinoza. - Lab Data Result diagrams: 10/09/21 13:35 10/09/21 13:35 Lab Results 10/09/21 10/09/21 10/09/21 Range/Units 13:35 13:35 13:35 WBC 8.5 (3.8-10.6) k/uL RBC 5.05 (3.80-5.40) m/uL Hgb 13.9 (11.4-16.0) gm/dL Hct 45.8 (34.0-46.0) % MCV 90.8 (80.0-100.0) fL MCH 27.5 (25.0-35.0) pg MCHC 30.2 L (31.0-37.0) g/dL RDW 15.1 (11.5-15.5) % Plt Count 325 (150-450) k/uL MPV 9.1 Neutrophils % 80 % Lymphocytes % 12 % Monocytes % 6 % Eosinophils % 2 % Basophils % 1 % Neutrophils # 6.8 (1.3-7.7) k/uL Lymphocytes # 1.0 (1.0-4.8) k/uL Monocytes # 0.5 (0-1.0) k/uL Eosinophils # 0.2 (0-0.7) k/uL Basophils # 0.0 (0-0.2) k/uL Hypochromasia Slight Sodium (137-145) mmol/L Potassium (3.5-5.1) mmol/L Chloride (98-107) mmol/L Carbon Dioxide (22-30) mmol/L Anion Gap mmol/L BUN (7-17) mg/dL Creatinine (0.52-1.04) mg/dL Est GFR (CKD-EPI)AfAm (>60 ml/min/1.73 sqM) Est GFR (CKD-EPI)NonAf (>60 ml/min/1.73 sqM) Glucose (74-99) mg/dL Calcium (8.4-10.2) mg/dL Total Bilirubin (0.2-1.3) mg/dL AST (14-36) U/L ALT (4-34) U/L Alkaline Phosphatase (38-126) U/L Total Protein (6.3-8.2) g/dL Albumin (3.5-5.0) g/dL Urine Color Yellow Urine Appearance Clear (Clear) Urine pH 6.0 (5.0-8.0) Ur Specific [place] 1.026 (1.001-1.035) Urine Protein Trace H (Negative) Urine Glucose (UA) Negative (Negative) Urine Ketones Negative (Negative) Urine Blood Negative (Negative) Urine Nitrite Negative (Negative) Urine Bilirubin Negative (Negative) Urine Urobilinogen <2.0 (<2.0) mg/dL Ur Leukocyte Esterase Trace H (Negative) Urine RBC 1 (0-5) /hpf Urine WBC 2 (0-5) /hpf Ur Squamous Epith Cells 4 (0-4) /hpf Urine Mucus Occasional H (None) /hpf Urine HCG, Qual Not Detected (Not Detectd) Urine Opiates Screen Not Detected (NotDetected) Ur Oxycodone Screen Not Detected (NotDetected) Urine Methadone Screen Not Detected (NotDetected) Ur Propoxyphene Screen Not Detected (NotDetected) Ur Barbiturates Screen Not Detected (NotDetected) U Tricyclic Antidepress Not Detected (NotDetected) Ur Phencyclidine Scrn Not Detected (NotDetected) Ur Amphetamines Screen Detected H (NotDetected) U Methamphetamines Scrn Not Detected (NotDetected) U Benzodiazepines Scrn Detected H (NotDetected) Urine Cocaine Screen Not Detected (NotDetected) U Marijuana (THC) Screen Detected H (NotDetected) 10/09/21 Range/Units 13:35 WBC (3.8-10.6) k/uL RBC (3.80-5.40) m/uL Hgb (11.4-16.0) gm/dL Hct (34.0-46.0) % MCV (80.0-100.0) fL MCH (25.0-35.0) pg MCHC (31.0-37.0) g/dL RDW (11.5-15.5) % Plt Count (150-450) k/uL MPV Neutrophils % % Lymphocytes % % Monocytes % % Eosinophils % % Basophils % % Neutrophils # (1.3-7.7) k/uL Lymphocytes # (1.0-4.8) k/uL Monocytes # (0-1.0) k/uL Eosinophils # (0-0.7) k/uL Basophils # (0-0.2) k/uL Hypochromasia Sodium 140 (137-145) mmol/L Potassium 4.4 (3.5-5.1) mmol/L Chloride 110 H (98-107) mmol/L Carbon Dioxide 23 (22-30) mmol/L Anion Gap 7 mmol/L BUN 10 (7-17) mg/dL Creatinine 0.71 (0.52-1.04) mg/dL Est GFR (CKD-EPI)AfAm >90 (>60 ml/min/1.73 sqM) Est GFR (CKD-EPI)NonAf >90 (>60 ml/min/1.73 sqM) Glucose 97 (74-99) mg/dL Calcium 9.3 (8.4-10.2) mg/dL Total Bilirubin 0.3 (0.2-1.3) mg/dL AST 22 (14-36) U/L ALT 19 (4-34) U/L Alkaline Phosphatase 76 (38-126) U/L Total Protein 7.3 (6.3-8.2) g/dL Albumin 4.2 (3.5-5.0) g/dL Urine Color Urine Appearance (Clear) Urine pH (5.0-8.0) Ur Specific [place] (1.001-1.035) Urine Protein (Negative) Urine Glucose (UA) (Negative) Urine Ketones (Negative) Urine Blood (Negative) Urine Nitrite (Negative) Urine Bilirubin (Negative) Urine Urobilinogen (<2.0) mg/dL Ur Leukocyte Esterase (Negative) Urine RBC (0-5) /hpf Urine WBC (0-5) /hpf Ur Squamous Epith Cells (0-4) /hpf Urine Mucus (None) /hpf Urine HCG, Qual (Not Detectd) Urine Opiates Screen (NotDetected) Ur Oxycodone Screen (NotDetected) Urine Methadone Screen (NotDetected) Ur Propoxyphene Screen (NotDetected) Ur Barbiturates Screen (NotDetected) U Tricyclic Antidepress (NotDetected) Ur Phencyclidine Scrn (NotDetected) Ur Amphetamines Screen (NotDetected) U Methamphetamines Scrn (NotDetected) U Benzodiazepines Scrn (NotDetected) Urine Cocaine Screen (NotDetected) U Marijuana (THC) Screen (NotDetected) Disposition Clinical Impression: Head injury Disposition: HOME SELF-CARE Condition: Good Instructions (If sedation given, give patient instructions): Head Injury (ED) Additional Instructions: Follow-up with PCP, neurology for possible Chiari malformation type I, and psychiatry for anxiety/depression. Report back to ER with any worsening symptoms. Is patient prescribed a controlled substance at d/c from ED?: No Referrals: Alan Bedoya Jr, DO [Primary Care Provider] - 1-2 days Ivan Colon MD [STAFF PHYSICIAN] - 1-2 days Vincenzo Massey MD [Medical Doctor] - 1-2 days Time of Disposition: 16:33
[2021-10-09 14:07] LABS: ALT 19 U/L (4-34); AST 22 U/L (14-36); African American GFR (CKD) >90 (>60 ml/min/1.73 sqM); Albumin 4.2 g/dL (3.5-5.0); Alkaline Phosphatase 76 U/L (38-126); Anion Gap 7 mmol/L; Blood Urea Nitrogen 10 mg/dL (7-17); Calcium 9.3 mg/dL (8.4-10.2); Carbon Dioxide 23 mmol/L (22-30); Chloride 110 mmol/L (98-107); Glucose 97 mg/dL (74-99); Non-African American GFR(CKD) >90 (>60 ml/min/1.73 sqM); Potassium 4.4 mmol/L (3.5-5.1); Sodium 140 mmol/L (137-145); Total Bilirubin 0.3 mg/dL (0.2-1.3); Total Protein 7.3 g/dL (6.3-8.2)
[2021-10-09 14:08] LABS: Appearance,Urine Clear (Clear); Bilirubin,Urine Negative (Negative); Blood,Urine Negative (Negative); Color,Urine Yellow; Glucose,Urine (UA) Negative (Negative); Ketones,Urine Negative (Negative); Leukocyte Esterase,Urine Trace (Negative); Mucus,Urine Occasional /hpf; Nitrite,Urine Negative (Negative); Protein,Urine Trace (Negative); RBC,Urine 1 /hpf (0-5); Specific Gravity,Urine 1.026 (1.001-1.035); Squamous Epithelial Cell,Urine 4 /hpf (0-4); Urobilinogen,Urine <2.0 mg/dL (<2.0); WBC,Urine 2 /hpf (0-5)
[2021-10-09 14:22] LABS: Basophils % (A) 1 %; Eosinophils # (A) 0.2 k/uL (0-0.7); Eosinophils % (A) 2 %; HCT 45.8 % (34.0-46.0); HGB 13.9 gm/dL (11.4-16.0); Hypochromasia Slight; Lymphocytes % (A) 12 %; MCH 27.5 pg (25.0-35.0); MCHC 30.2 g/dL (31.0-37.0); MCV 90.8 fL (80.0-100.0); Mean Platelet Volume 9.1; Monocytes # (A) 0.5 k/uL (0-1.0); Monocytes % (A) 6 %; Neutrophils # (A) 6.8 k/uL (1.3-7.7); Neutrophils % (A) 80 %; Platelet Count 325 k/uL (150-450); RBC 5.05 m/uL (3.80-5.40); RDW 15.1 % (11.5-15.5); WBC 8.5 k/uL (3.8-10.6)
[2021-10-09 14:29] LABS: Amphetamine Screen,Urine Detected (NotDetected); Barbiturate Screen,Urine Not Detected (NotDetected); Benzodiazepines Screen,Urine Detected (NotDetected); Cocaine Screen,Urine Not Detected (NotDetected); Methadone Screen, Urine Not Detected (NotDetected); Opiate Screen,Urine Not Detected (NotDetected); Oxycodone Screen, Urine Not Detected (NotDetected); Phencyclidine Screen,Urine Not Detected (NotDetected); Tricyclic Antidepressant,Urine Not Detected (NotDetected); Urn Cannabinoid Scrn Detected (NotDetected)
[2021-10-09 15:01] VITALS: RESP 16
--- NOTE | 2021-10-09 15:49 | CT ---
EXAMINATION TYPE: CT brain wo con DATE OF EXAM: 10/09/2021 COMPARISON: None. HISTORY: pt states she hit her head x1 week ago and headaches since then CT DLP: 1100.4 mGycm. Automated Exposure Control for Dose Reduction was Utilized. TECHNIQUE: CT scan of the head is performed without contrast. FINDINGS: There is no acute intracranial hemorrhage, mass effect, or midline shift identified. The ventricles and sulci are within normal limits in size. Rahman-white matter differentiation is maintai rachana. Low-lying cerebellar tonsils into foramen magnum without greater than 5 mm inferior displacement to suggest Chiari type I malformation . Consider MRI follow-up to further evaluate. The calvarium is intact. The globes are intact and the visualized sinuses are clear. IMPRESSION: No acute intracranial hemorrhage or midline shift is seen.
[2021-10-09 16:52] VITALS: BP 119/87; PULSE 92; TEMP 98
== END 2021-10-09 16:51 | disposition home or self-care (01) ==
LOC: EC 12:59
DX: S09.90XA Unspecified injury of head, initial encounter (principal); R40.2362 Coma scale, best motor response, obeys commands, at arrival to emergency department; R40.2142 Coma scale, eyes open, spontaneous, at arrival to emergency department; R40.2252 Coma scale, best verbal response, oriented, at arrival to emergency department; J45.909 Unspecified asthma, uncomplicated; Z79.51 Long term (current) use of inhaled steroids; W22.8XXA Striking against or struck by other objects, initial encounter
CPT/HCPCS: 36415; 70450; 80053; 80306; 81001; 81025; 85025; 99284

== ENCOUNTER 2022-03-17 18:45 | Emergency (ER) | payer OTHER ==
[2022-03-17 19:43] VITALS: RESP 16
[2022-03-17] MEDS ORDERED: ACET/COD 300 MG/30 MG STARTER PACK 6 TAB BTL PO STA (19:59)
[2022-03-17] MEDS ORDERED: CLINDAMYCIN 150 MG CAP PO STA (19:59)
--- NOTE | 2022-03-17 20:04 | ED ---
General Adult HPI - General Chief complaint: Dental/Oral Stated complaint: dental infection Time Seen by Provider: 03/17/22 19:27 Source: patient, RN notes reviewed Mode of arrival: ambulatory Limitations: no limitations - History of Present Illness Initial comments: Patient is a pleasant 26-year-old female presenting to emergency department with concerns for tooth infection. Discomfort is right upper tooth however also has some discomfort left upper. Symptoms have been present for over a week now. Patient has been on amoxicillin. Patient has been unable to find a dentist but is still trying to. No dyspnea. Patient is tolerating oral intake. - Related Data Home Medications Medication Instructions Recorded Confirmed Ipratropium-Albuterol Nebulize 3 ml INHALATION RT-Q4H PRN 05/06/18 05/15/21 [Duoneb 0.5 mg-3 mg/3 ml Soln] Acetaminophen/Diphenhydramine 2 tab PO HS PRN 05/15/21 05/15/21 [Tylenol PM 500-25mg] Albuterol Sulfate [Proair Hfa] 2 puff INHALATION RT-Q6H PRN 05/15/21 05/15/21 Fluticasone Propion/Salmeterol 1 puff INHALATION RT-BID 05/15/21 05/15/21 [Advair 250-50 Diskus] Previous Rx's Medication Instructions Recorded Cyclobenzaprine [Flexeril] 10 mg PO TID PRN #15 tab 07/29/21 Ibuprofen [Motrin] 600 mg PO Q8HR PRN #20 tab 07/29/21 Penicillin V Potassium [Pen Vee K] 500 mg PO QID #40 tablet 07/29/21 Clindamycin [Cleocin] 2 tab PO Q6H #60 cap 03/17/22 Allergies Allergy/AdvReac Type Severity Reaction Status Date / Time amphetamine aspartate AdvReac Confusion Verified 03/17/22 18:55 [From Adderall] amphetamine sulfate AdvReac Confusion Verified 03/17/22 18:55 [From Adderall] dextroamphetamine saccharate AdvReac Confusion Verified 03/17/22 18:55 [From Adderall] dextroamphetamine sulfate AdvReac Confusion Verified 03/17/22 18:55 [From Adderall] lamotrigine [From Lamictal] AdvReac Hallucinati Verified 03/17/22 18:55 ons Review of Systems ROS Statement: Those systems with pertinent positive or pertinent negative responses have been documented in the HPI. ROS Other: All systems not noted in ROS Statement are negative. Constitutional: Denies: fever Eyes: Denies: eye pain ENT: Reports: as per HPI, dental pain. Denies: ear pain Respiratory: Denies: dyspnea Cardiovascular: Denies: chest pain Endocrine: Denies: fatigue Gastrointestinal: Denies: abdominal pain Genitourinary: Denies: dysuria Musculoskeletal: Denies: back pain Skin: Denies: rash Past Medical History Past Medical History: Asthma, Pneumonia Additional Past Medical History / Comment(s): Chiari syndrome History of Any Multi-Drug Resistant Organisms: None Reported Past Surgical History: No Surgical Hx Reported Past Anesthesia/Blood Transfusion Reactions: No Reported Reaction Past Psychological History: Anxiety, Bipolar, Depression Smoking Status: Never smoker Past Alcohol Use History: None Reported Past Drug Use History: None Reported - Past Family History Mother Family Medical History: No Reported History General Exam Limitations: no limitations General appearance: alert, in no apparent distress Head exam: Present: normocephalic Eye exam: Present: normal appearance ENT exam: Present: other (Right upper lateral incisor with some tenderness in the superior portion. Left upper first premolar messing with some tooth fragment still present. There is also some tenderness above this. No significant swelling) Neck exam: Present: normal inspection Respiratory exam: Present: normal lung sounds bilaterally Cardiovascular Exam: Present: regular rate, normal rhythm GI/Abdominal exam: Present: soft. Absent: tenderness Neurological exam: Present: alert Psychiatric exam: Present: normal affect, normal mood Course Vital Signs 03/17/22 03/17/22 18:52 19:43 Temperature 98.1 F 98.3 F Pulse Rate 89 87 Respiratory 18 16 Rate Blood Pressure 135/75 147/74 O2 Sat by Pulse 97 99 Oximetry Disposition Clinical Impression: Dentalgia Disposition: HOME SELF-CARE Condition: Stable Instructions (If sedation given, give patient instructions): Toothache (ED) Additional Instructions: Prescription sent to pharmacy. Please do follow-up with dentist in the next day or 2 for recheck, call tomorrow. Return for increased pain or swelling, fever, difficulty breathing, difficulty tolerating oral intake, worsening symptoms or other concerns. Prescriptions: Clindamycin [Cleocin] 2 tab PO Q6H #60 cap Is patient prescribed a controlled substance at d/c from ED?: No Referrals: Gautam Maldonado MD [STAFF PHYSICIAN] - 1-2 days Time of Disposition: 20:03
[2022-03-17 20:15] VITALS: BP 142/70; PULSE 82; TEMP 98
== END 2022-03-17 20:11 | disposition home or self-care (01) ==
LOC: EC 18:45
DX: K08.9 Disorder of teeth and supporting structures, unspecified (principal); J45.909 Unspecified asthma, uncomplicated; F41.9 Anxiety disorder, unspecified; F31.9 Bipolar disorder, unspecified; Z88.8 Allergy status to other drugs, medicaments and biological substances; Z79.51 Long term (current) use of inhaled steroids; Z79.899 Other long term (current) drug therapy
CPT/HCPCS: 99282

== ENCOUNTER 2022-04-06 02:19 | Emergency (ER) | payer OTHER ==
[2022-04-06 02:26] VITALS: RESP 18
[2022-04-06] MEDS ORDERED: HYDROmorphone 1 MG/ML 1 ML SYRINGE IVP STA ×2 (02:38→06:13)
[2022-04-06] MEDS ORDERED: ONDANSETRON 4 MG/2 ML VIAL IVP STA (02:52)
[2022-04-06 03:05] LABS: Basophils % (A) 0 %; Eosinophils # (A) 0.3 k/uL (0-0.7); Eosinophils % (A) 3 %; HCT 37.4 % (34.0-46.0); HGB 12.8 gm/dL (11.4-16.0); Lymphocytes # (A) 2.2 k/uL (1.0-4.8); Lymphocytes % (A) 23 %; MCH 30.5 pg (25.0-35.0); MCHC 34.2 g/dL (31.0-37.0); MCV 89.4 fL (80.0-100.0); Mean Platelet Volume 8.8; Monocytes # (A) 0.5 k/uL (0-1.0); Monocytes % (A) 5 %; Neutrophils # (A) 6.2 k/uL (1.3-7.7); Neutrophils % (A) 67 %; Platelet Count 310 k/uL (150-450); RBC 4.18 m/uL (3.80-5.40); RDW 13.8 % (11.5-15.5); WBC 9.4 k/uL (3.8-10.6)
[2022-04-06 03:24] LABS: Appearance,Urine Cloudy (Clear); Bacteria,Urine Rare /hpf; Bilirubin,Urine Negative (Negative); Blood,Urine Negative (Negative); Color,Urine Yellow; Glucose,Urine (UA) Negative (Negative); Ketones,Urine Negative (Negative); Leukocyte Esterase,Urine Large (Negative); Mucus,Urine Rare /hpf; Nitrite,Urine Negative (Negative); Protein,Urine Trace (Negative); RBC,Urine 2 /hpf (0-5); Specific Gravity,Urine 1.032 (1.001-1.035); Squamous Epithelial Cell,Urine 18 /hpf (0-4); Urobilinogen,Urine <2.0 mg/dL (<2.0); WBC,Urine 30 /hpf (0-5)
--- NOTE | 2022-04-06 03:26 | CT ---
EXAMINATION TYPE: CT brain dimas cm DATE OF EXAM: 04/06/2022 COMPARISON: 10/09/2021 CT brain HISTORY: Recent Chiari decompression. Pt is having heaviness in bilateral lower extremities and back pain post op x 2days. CT DLP: 1610.8 mGycm Automated exposure control for dose reduction was used. Images of the brain and cervical spine obtained with no contrast. Ventricles have normal size. There is no mass effect or midline shift. No sign of intracranial hemorr tiago. There is occipital craniotomy defect at the posterior skull base. No evidence of cerebral edema . The cervical vertebra have normal spacing and alignment. Posterior element are intact. Facet joints a re intact. Prevertebral soft tissues appear normal. The facet joints appear normal. No cervical kathe tania mass. IMPRESSION: Negative CT scan of the brain. Negative CT scan of the cervical spine. Occipital craniotomy defect. No complicating process seen.
[2022-04-06 03:40] LABS: ALT 17 U/L (4-34); AST 19 U/L (14-36); African American GFR (CKD) >90 (>60 ml/min/1.73 sqM); Albumin 3.5 g/dL (3.5-5.0); Alkaline Phosphatase 62 U/L (38-126); Anion Gap 6 mmol/L; Blood Urea Nitrogen 17 mg/dL (7-17); C Reactive Protein 1.1 mg/dL (<1.0); Calcium 8.4 mg/dL (8.4-10.2); Carbon Dioxide 23 mmol/L (22-30); Chloride 110 mmol/L (98-107); Glucose 117 mg/dL (74-99); Non-African American GFR(CKD) >90 (>60 ml/min/1.73 sqM); Sodium 139 mmol/L (137-145); Total Bilirubin 0.2 mg/dL (0.2-1.3)
[2022-04-06 03:43] LABS: Erythrocyte Sedimentation Rate 31 mm/hr (0-20)
--- NOTE | 2022-04-06 05:12 | ED ---
General Adult HPI - General Chief complaint: Neuro Symptoms/Deficit Stated complaint: Leg Pain Time Seen by Provider: 04/06/22 02:30 Source: patient Mode of arrival: ambulatory Limitations: no limitations - History of Present Illness Initial comments: 26-year-old female presents the emergency department reported lumbar back pain. Patient states that for the past 2 days she has had lumbar back pain which is reproducible with movement. Admits to generalized weakness in her lower extremities. States the pain is so significant that it feels like her legs want to give out on her. She is status post posterior craniotomy on the by Dr. Sushma Martin for Chiari malformation. Reports that she was hospitalized for 2 days. She is on [place], Motrin and Robaxin for pain control. States that she was doing well after surgery however as of 2 days ago developed these new symptoms. She also reports to a fever up to 101 at home. Admits to some dysur ia. Denies urinary or stool retention. No incontinence. No saddle anesthesia. No nausea or vomiting. Does admit to a mild headache. She did call her home nurse who recommended that she come in to the emergency room for evaluation. - Related Data Home Medications Medication Instructions Recorded Confirmed Ipratropium-Albuterol Nebulize 3 ml INHALATION RT-Q4H PRN 05/06/18 05/15/21 [Duoneb 0.5 mg-3 mg/3 ml Soln] Acetaminophen/Diphenhydramine 2 tab PO HS PRN 05/15/21 05/15/21 [Tylenol PM 500-25mg] Albuterol Sulfate [Proair Hfa] 2 puff INHALATION RT-Q6H PRN 05/15/21 05/15/21 Fluticasone Propion/Salmeterol 1 puff INHALATION RT-BID 05/15/21 05/15/21 [Advair 250-50 Diskus] Previous Rx's Medication Instructions Recorded Cyclobenzaprine [Flexeril] 10 mg PO TID PRN #15 tab 07/29/21 Ibuprofen [Motrin] 600 mg PO Q8HR PRN #20 tab 07/29/21 Penicillin V Potassium [Pen Vee K] 500 mg PO QID #40 tablet 07/29/21 Clindamycin [Cleocin] 2 tab PO Q6H #60 cap 03/17/22 methylPREDNISolone Dose Pack 4 mg PO DIRECTED #21 tab 04/06/22 [Medrol Dose Pack] Allergies Allergy/AdvReac Type Severity Reaction Status Date / Time amphetamine aspartate AdvReac Confusion Verified 04/06/22 02:20 [From Adderall] amphetamine sulfate AdvReac Confusion Verified 04/06/22 02:20 [From Adderall] dextroamphetamine saccharate AdvReac Confusion Verified 04/06/22 02:20 [From Adderall] dextroamphetamine sulfate AdvReac Confusion Verified 04/06/22 02:20 [From Adderall] lamotrigine [From Lamictal] AdvReac Hallucinati Verified 04/06/22 02:20 ons Review of Systems ROS Statement: Those systems with pertinent positive or pertinent negative responses have been documented in the HPI. ROS Other: All systems not noted in ROS Statement are negative. Past Medical History Past Medical History: Asthma, Pneumonia Additional Past Medical History / Comment(s): Chiari syndrome History of Any Multi-Drug Resistant Organisms: None Reported Past Surgical History: Section Additional Past Surgical History / Comment(s): Decompression surgery for Chiari Past Anesthesia/Blood Transfusion Reactions: No Reported Reaction Past Psychological History: Anxiety, Bipolar, Depression Smoking Status: Never smoker Past Alcohol Use History: None Reported Past Drug Use History: None Reported - Past Family History Mother Family Medical History: No Reported History General Exam Limitations: no limitations General appearance: alert, in no apparent distress Head exam: Present: atraumatic, normocephalic, normal inspection Eye exam: Present: normal appearance, PERRL, EOMI. Absent: scleral icterus, conjunctival injection, periorbital swelling ENT exam: Present: normal exam, mucous membranes moist Neck exam: Present: tenderness (next to the incision which is clean, dry and intact). Absent: meningismus, lymphadenopathy Respiratory exam: Present: normal lung sounds bilaterally. Absent: respiratory distress, wheezes, rales, rhonchi, stridor Cardiovascular Exam: Present: regular rate, normal rhythm, normal heart sounds. Absent: systolic murmur, diastolic murmur, rubs, gallop, clicks GI/Abdominal exam: Present: soft, normal bowel sounds. Absent: distended, tenderness, guarding, rebound, rigid Extremities exam: Present: normal inspection, full ROM, normal capillary refill. Absent: tenderness, pedal edema, joint swelling, calf tenderness Back exam: Present: paraspinal tenderness (lumbar region, l2-l5), other (5/5 strength bilateral lower extremities. patient ambulatory without difficulty) Neurological exam: Present: alert, oriented X3, CN II-XII intact Psychiatric exam: Present: normal affect, normal mood Skin exam: Present: warm, dry, intact, normal color. Absent: rash Course Vital Signs 04/06/22 04/06/22 04/06/22 02:22 06:23 06:32 Temperature 98.4 F 98.1 F Pulse Rate 98 81 Respiratory 18 18 Rate Blood Pressure 118/78 112/58 O2 Sat by Pulse 96 96 Oximetry - Reevaluation(s) Reevaluation #1: 04/06/22 05:12 Spoke with neurosurgery PA traffic monitor specialist at hospital - states I need to talk to Dr. Martin Medical Decision Making - Medical Decision Making Upon arrival patient was placed into room 3. A thorough history and physical exam was performed. IV access is established. Patient was given 1 mg of Dilaudid for pain control informal grams of Zofran for nausea. Laboratory studies are conducted. ESR 31. C-reactive protein 1.1. Urinalysis demonstrates rare bacteria with 18 squamous epithelial cells. Covid is negative. CT of the brain is performed which demonstrates a caning process with postop changes. Results are discussed with the patient. She is able to sit up in bed and ambulate to the bathroom. I did call and speak with Dr. Martin in regards to the results. She recommends placing the patient on a Medrol Dosepak. She is made aware of the patient's reported fevers and other postop complicatio ns. She will follow the patient in office. Patient feels comfortable with the discharge at this time. Instructed to call and make an appointment with Dr. Martin. Return to the emergency room for any new or worsening symptoms. Patient discharged home ambulatory in stable condition - Lab Data Result diagrams: 04/06/22 02:51 04/06/22 02:51 Lab Results 04/06/22 04/06/22 04/06/22 Range/Units 02:51 02:51 02:51 WBC 9.4 (3.8-10.6) k/uL RBC 4.18 (3.80-5.40) m/uL Hgb 12.8 (11.4-16.0) gm/dL Hct 37.4 (34.0-46.0) % MCV 89.4 (80.0-100.0) fL MCH 30.5 (25.0-35.0) pg MCHC 34.2 (31.0-37.0) g/dL RDW 13.8 (11.5-15.5) % Plt Count 310 (150-450) k/uL MPV 8.8 Neutrophils % 67 % Lymphocytes % 23 % Monocytes % 5 % Eosinophils % 3 % Basophils % 0 % Neutrophils # 6.2 (1.3-7.7) k/uL Lymphocytes # 2.2 (1.0-4.8) k/uL Monocytes # 0.5 (0-1.0) k/uL Eosinophils # 0.3 (0-0.7) k/uL Basophils # 0.0 (0-0.2) k/uL ESR 31 H (0-20) mm/hr Sodium 139 (137-145) mmol/L Potassium 4.0 (3.5-5.1) mmol/L Chloride 110 H (98-107) mmol/L Carbon Dioxide 23 (22-30) mmol/L Anion Gap 6 mmol/L BUN 17 (7-17) mg/dL Creatinine 0.69 (0.52-1.04) mg/dL Est GFR (CKD-EPI)AfAm >90 (>60 ml/min/1.73 sqM) Est GFR (CKD-EPI)NonAf >90 (>60 ml/min/1.73 sqM) Glucose 117 H (74-99) mg/dL Calcium 8.4 (8.4-10.2) mg/dL Total Bilirubin 0.2 (0.2-1.3) mg/dL AST 19 (14-36) U/L ALT 17 (4-34) U/L Alkaline Phosphatase 62 (38-126) U/L C-Reactive Protein 1.1 H (<1.0) mg/dL Total Protein 6.0 L (6.3-8.2) g/dL Albumin 3.5 (3.5-5.0) g/dL HCG, Qual Urine Color Urine Appearance (Clear) Urine pH (5.0-8.0) Ur Specific [place] (1.001-1.035) Urine Protein (Negative) Urine Glucose (UA) (Negative) Urine Ketones (Negative) Urine Blood (Negative) Urine Nitrite (Negative) Urine Bilirubin (Negative) Urine Urobilinogen (<2.0) mg/dL Ur Leukocyte Esterase (Negative) Urine RBC (0-5) /hpf Urine WBC (0-5) /hpf Ur Squamous Epith Cells (0-4) /hpf Urine Bacteria (None) /hpf Urine Mucus (None) /hpf Coronavirus (PCR) Not Detected (Not Detectd) 04/06/22 04/06/22 Range/Units 02:54 03:00 WBC (3.8-10.6) k/uL RBC (3.80-5.40) m/uL Hgb (11.4-16.0) gm/dL Hct (34.0-46.0) % MCV (80.0-100.0) fL MCH (25.0-35.0) pg MCHC (31.0-37.0) g/dL RDW (11.5-15.5) % Plt Count (150-450) k/uL MPV Neutrophils % % Lymphocytes % % Monocytes % % Eosinophils % % Basophils % % Neutrophils # (1.3-7.7) k/uL Lymphocytes # (1.0-4.8) k/uL Monocytes # (0-1.0) k/uL Eosinophils # (0-0.7) k/uL Basophils # (0-0.2) k/uL ESR (0-20) mm/hr Sodium (137-145) mmol/L Potassium (3.5-5.1) mmol/L Chloride (98-107) mmol/L Carbon Dioxide (22-30) mmol/L Anion Gap mmol/L BUN (7-17) mg/dL Creatinine (0.52-1.04) mg/dL Est GFR (CKD-EPI)AfAm (>60 ml/min/1.73 sqM) Est GFR (CKD-EPI)NonAf (>60 ml/min/1.73 sqM) Glucose (74-99) mg/dL Calcium (8.4-10.2) mg/dL Total Bilirubin (0.2-1.3) mg/dL AST (14-36) U/L ALT (4-34) U/L Alkaline Phosphatase (38-126) U/L C-Reactive Protein (<1.0) mg/dL Total Protein (6.3-8.2) g/dL Albumin (3.5-5.0) g/dL HCG, Qual Not Detected Urine Color Yellow Urine Appearance Cloudy H (Clear) Urine pH 6.0 (5.0-8.0) Ur Specific [place] 1.032 (1.001-1.035) Urine Protein Trace H (Negative) Urine Glucose (UA) Negative (Negative) Urine Ketones Negative (Negative) Urine Blood Negative (Negative) Urine Nitrite Negative (Negative) Urine Bilirubin Negative (Negative) Urine Urobilinogen <2.0 (<2.0) mg/dL Ur Leukocyte Esterase Large H (Negative) Urine RBC 2 (0-5) /hpf Urine WBC 30 H (0-5) /hpf Ur Squamous Epith Cells 18 H (0-4) /hpf Urine Bacteria Rare H (None) /hpf Urine Mucus Rare H (None) /hpf Coronavirus (PCR) (Not Detectd) Disposition Clinical Impression: Lumbar back pain, Chiari malformation, S/P craniotomy Disposition: HOME SELF-CARE Condition: Stable Instructions (If sedation given, give patient instructions): Back Pain (ED) Additional Instructions: Please take the steroid pack as was recommended by your neurosurgeon. Continue taking your other medications as directed. Call her office to make an appointment. Return for any new or worsening symptoms Prescriptions: methylPREDNISolone Dose Pack [Medrol Dose Pack] 4 mg PO DIRECTED #21 tab Is patient prescribed a controlled substance at d/c from ED?: No Referrals: Alan Bedoya Jr, DO [Primary Care Provider] - 1-2 days Sushma Winter MD [REFERRING] - 1-2 days Time of Disposition: 06:16
[2022-04-06] MEDS ORDERED: methylPREDNISolone SOD SUCCI 125 MG/2 ML VIAL IV STA (06:13)
[2022-04-06 06:25] VITALS: PULSE 81; TEMP 98.1
[2022-04-06 06:32] VITALS: BP 112/58
== END 2022-04-06 06:35 | disposition home or self-care (01) ==
LOC: EC 02:19
DX: Z48.811 Encounter for surgical aftercare following surgery on the nervous system (principal); M54.50 Low back pain, unspecified; G93.5 Compression of brain; J45.909 Unspecified asthma, uncomplicated; F31.9 Bipolar disorder, unspecified; F41.9 Anxiety disorder, unspecified; Z79.899 Other long term (current) drug therapy; Z20.822 Contact with and (suspected) exposure to COVID-19; Z88.8 Allergy status to other drugs, medicaments and biological substances
CPT/HCPCS: 36415; 80053; 85652; 85025; 86140; 81001; 84703; 87086; 87635; 72125; 70450; 99284; 96374; 96375 ×2; 96376; J2930; J2405; J1170

== ENCOUNTER 2022-04-11 20:19 | Emergency (ER) | payer OTHER ==
[2022-04-11 20:47] VITALS: TEMP 98.9
[2022-04-11 21:25] VITALS: PULSE 82; RESP 16
[2022-04-11] MEDS ORDERED: ONDANSETRON 4 MG/2 ML VIAL IVP STA (21:27)
[2022-04-11] MEDS ORDERED: MORPHINE SULFATE 4 MG/ML SYRINGE IVP STA (21:27)
[2022-04-11] MEDS ORDERED: SODIUM CHLORIDE 0.9% 1,000 ML IV ONE (21:27)
[2022-04-11] MEDS ORDERED: RX INFO: IV CONTRAST WAS GIVEN 1 EACH MISC MISCELLANE PRN (21:29)
[2022-04-11 22:02] LABS: Basophils # (A) 0.1 k/uL (0-0.2); Basophils % (A) 0 %; Eosinophils # (A) 0.3 k/uL (0-0.7); Eosinophils % (A) 2 %; HCT 39.5 % (34.0-46.0); HGB 13.3 gm/dL (11.4-16.0); Lymphocytes # (A) 1.9 k/uL (1.0-4.8); Lymphocytes % (A) 9 %; MCH 30.7 pg (25.0-35.0); MCHC 33.7 g/dL (31.0-37.0); MCV 91.1 fL (80.0-100.0); Mean Platelet Volume 8.5; Monocytes # (A) 0.7 k/uL (0-1.0); Monocytes % (A) 4 %; Neutrophils # (A) 17.2 k/uL (1.3-7.7); Neutrophils % (A) 85 %; Platelet Count 381 k/uL (150-450); RBC 4.33 m/uL (3.80-5.40); RDW 13.9 % (11.5-15.5); WBC 20.4 k/uL (3.8-10.6)
[2022-04-11 22:08] LABS: ALT 30 U/L (4-34); AST 25 U/L (14-36); African American GFR (CKD) >90 (>60 ml/min/1.73 sqM); Alkaline Phosphatase 68 U/L (38-126); Anion Gap 8 mmol/L; Blood Urea Nitrogen 12 mg/dL (7-17); Calcium 8.8 mg/dL (8.4-10.2); Carbon Dioxide 25 mmol/L (22-30); Chloride 103 mmol/L (98-107); Glucose 123 mg/dL (74-99); Non-African American GFR(CKD) >90 (>60 ml/min/1.73 sqM); Potassium 3.9 mmol/L (3.5-5.1); Sodium 136 mmol/L (137-145); Total Bilirubin 0.2 mg/dL (0.2-1.3); Total Protein 6.9 g/dL (6.3-8.2)
--- NOTE | 2022-04-11 22:29 | ED ---
General Adult HPI - General Chief complaint: Headache Stated complaint: Migraine, PO brain surgery Time Seen by Provider: 04/11/22 21:17 Source: family Mode of arrival: wheelchair Limitations: no limitations - History of Present Illness Initial comments: This is a 26-year-old female with a past medical history including recent Chiari decompression at [facility] by Dr. Martin on 04/03/22, presented to the emergency department for significant posterior neck pain and facial pain. It was reported that the patient was having minor headaches on Wednesday and was seen in the emergency department here. It was recommended by Dr. Martin to take steroids and continue to monitor symptoms. The patient reported that her 4-year-old daughter accidentally kicked her in the back of the neck while she was sleeping yesterday and that seemed to exacerbate the pain in her neck. The patient complained of significant pain along the midline back at the site of the incision as well as anterior neck and lower face. The patient had to sit upright and complained of significant nausea and vomiting. The patient also reported associated photophobia and phonophobia. The patient denied any fevers or chills however. The patient was unable to get ahold of Dr. Martin so she came to the emergency department here. - Related Data Home Medications Medication Instructions Recorded Confirmed Ipratropium-Albuterol Nebulize 3 ml INHALATION RT-Q4H PRN 05/06/18 05/15/21 [Duoneb 0.5 mg-3 mg/3 ml Soln] Acetaminophen/Diphenhydramine 2 tab PO HS PRN 05/15/21 05/15/21 [Tylenol PM 500-25mg] Albuterol Sulfate [Proair Hfa] 2 puff INHALATION RT-Q6H PRN 05/15/21 05/15/21 Fluticasone Propion/Salmeterol 1 puff INHALATION RT-BID 05/15/21 05/15/21 [Advair 250-50 Diskus] Previous Rx's Medication Instructions Recorded Cyclobenzaprine [Flexeril] 10 mg PO TID PRN #15 tab 07/29/21 Ibuprofen [Motrin] 600 mg PO Q8HR PRN #20 tab 07/29/21 Penicillin V Potassium [Pen Vee K] 500 mg PO QID #40 tablet 07/29/21 Clindamycin [Cleocin] 2 tab PO Q6H #60 cap 03/17/22 methylPREDNISolone Dose Pack 4 mg PO DIRECTED #21 tab 04/06/22 [Medrol Dose Pack] Allergies Allergy/AdvReac Type Severity Reaction Status Date / Time amphetamine aspartate AdvReac Confusion Verified 04/11/22 20:47 [From Adderall] amphetamine sulfate AdvReac Confusion Verified 04/11/22 20:47 [From Adderall] dextroamphetamine saccharate AdvReac Confusion Verified 04/11/22 20:47 [From Adderall] dextroamphetamine sulfate AdvReac Confusion Verified 04/11/22 20:47 [From Adderall] lamotrigine [From Lamictal] AdvReac Hallucinati Verified 04/11/22 20:47 ons Review of Systems ROS Statement: Those systems with pertinent positive or pertinent negative responses have been documented in the HPI. ROS Other: All systems not noted in ROS Statement are negative. Past Medical History Past Medical History: Asthma, Pneumonia Additional Past Medical History / Comment(s): Chiari syndrome History of Any Multi-Drug Resistant Organisms: None Reported Past Surgical History: Section Additional Past Surgical History / Comment(s): Decompression surgery for Chiari Past Anesthesia/Blood Transfusion Reactions: No Reported Reaction Past Psychological History: Anxiety, Bipolar, Depression Smoking Status: Vaper Past Alcohol Use History: None Reported Past Drug Use History: None Reported - Past Family History Mother Family Medical History: No Reported History General Exam Limitations: no limitations General appearance: alert, in distress, obese, other (Distress 2/2 to cervical spine pain) Head exam: Present: atraumatic, normocephalic Eye exam: Present: normal appearance, PERRL Pupils: Present: normal accommodation ENT exam: Present: normal exam, normal oropharynx Neck exam: Present: tenderness, other (Tenderness around the entirety of the neck with decreased range of motion secondary to pain. Incision was clear, dry and intact without any erythema or drainage noted.) Respiratory exam: Present: normal lung sounds bilaterally Cardiovascular Exam: Present: regular rate, normal rhythm, normal heart sounds GI/Abdominal exam: Present: soft, normal bowel sounds Extremities exam: Present: normal inspection, full ROM Back exam: Present: normal inspection, full ROM Neurological exam: Present: alert, oriented X3, CN II-XII intact Psychiatric exam: Present: normal affect, normal mood, anxious Skin exam: Present: warm, dry Course Vital Signs 04/11/22 04/11/22 04/12/22 20:45 21: 00:36 Temperature 98.9 F Pulse Rate 97 82 82 Respiratory 18 16 16 Rate Blood Pressure 142/84 139/81 136/85 O2 Sat by Pulse 97 98 98 Oximetry Medical Decision Making - Medical Decision Making The patient was seen and evaluated emergency department. Physical exam, the patient was resting in bed in significant distress secondary to pain. Vital signs admission did show tachycardia likely secondary to this pain and disc omfort of the neck. Laboratory workup was obtained as well as imaging including a CT head and CT C-spine with contrast to rule out any signs of infection or swelling secondary to the trauma over the incision site. The patient was also given 4 mg of morphine as well as 4 mg of Zofran on arrival. CT head and CT C- spine were still pending at this time. The patient did have an elevated white blood cell count admitted to the steroids that she is currently taking. CT of the head and CT spine with contrast were obtained and were interpreted by myself. CT of the brain with contrast showed posterior skull changes that are stable compared to the old exam. CT of the cervical spine with contrast was also interpreted by myself and showed postsurgical changes. There is no fracture. There is midline posterior fluid collection the subcutaneous fat that measures 13 mm in thickness and could be a seroma or hematoma. There is no fat stranding seen to suggest an abscess. The fluid appears not significantly different than the recent exam that was done on 04/06/2022 Transfer was initiated to [facility] for continued evaluation by neurosurgery. The patient was accepted by Dr. Martin via the [facility] transfer line. The emergency department at [facility] ED as was contacted for transfer and Dr. Oglesby accepted the patient for an ED to ED transfer at 2306. The patient was told of this plan and was agreeable. The patient was transferred via EMS in stable condition. The patient did require a second dose of pain medications in the emergency department but on reevaluation stated that her pain was better undercontrolled than when she first came into the emergency department. - Lab Data Result diagrams: 04/11/22 21:54 04/11/22 21:54 Lab Results 04/11/22 04/11/22 Range/Units 21:54 21:54 WBC 20.4 H (3.8-10.6) k/uL RBC 4.33 (3.80-5.40) m/uL Hgb 13.3 (11.4-16.0) gm/dL Hct 39.5 (34.0-46.0) % MCV 91.1 (80.0-100.0) fL MCH 30.7 (25.0-35.0) pg MCHC 33.7 (31.0-37.0) g/dL RDW 13.9 (11.5-15.5) % Plt Count 381 (150-450) k/uL MPV 8.5 Neutrophils % 85 % Lymphocytes % 9 % Monocytes % 4 % Eosinophils % 2 % Basophils % 0 % Neutrophils # 17.2 H (1.3-7.7) k/uL Lymphocytes # 1.9 (1.0-4.8) k/uL Monocytes # 0.7 (0-1.0) k/uL Eosinophils # 0.3 (0-0.7) k/uL Basophils # 0.1 (0-0.2) k/uL Sodium 136 L (137-145) mmol/L Potassium 3.9 (3.5-5.1) mmol/L Chloride 103 (98-107) mmol/L Carbon Dioxide 25 (22-30) mmol/L Anion Gap 8 mmol/L BUN 12 (7-17) mg/dL Creatinine 0.59 (0.52-1.04) mg/dL Est GFR (CKD-EPI)AfAm >90 (>60 ml/min/1.73 sqM) Est GFR (CKD-EPI)NonAf >90 (>60 ml/min/1.73 sqM) Glucose 123 H (74-99) mg/dL Calcium 8.8 (8.4-10.2) mg/dL Total Bilirubin 0.2 (0.2-1.3) mg/dL AST 25 (14-36) U/L ALT 30 (4-34) U/L Alkaline Phosphatase 68 (38-126) U/L Total Protein 6.9 (6.3-8.2) g/dL Albumin 4.0 (3.5-5.0) g/dL Disposition Clinical Impression: Post-op pain, Chiari malformation Disposition: OTHER INSTITUTION NOT DEFINED Condition: Stable Instructions (If sedation given, give patient instructions): Acute Headache (ED) Is patient prescribed a controlled substance at d/c from ED?: No Referrals: Alan Bedoya Jr, [Primary Care Provider] - 1-2 days Time of Disposition: 23:06 - Out of Hospital Transfer - Req. Specs Out of Hospital Transfer - Requested Specifics: Other Emergency Center ([facility] ED)
[2022-04-11] MEDS ORDERED: fentaNYL (PF) 50 MCG/ML 2 ML AMP IVP PRN (22:55)
--- NOTE | 2022-04-11 23:24 | CT ---
EXAMINATION TYPE: CT brain w con DATE OF EXAM: 04/11/2022 COMPARISON: 04/06/2022 HISTORY: Recent Chiari decompression sx at [facility] on 04-06-22 CT DLP: 1789.9 mGycm Automated exposure control for dose reduction was used. CONTRAST: Performed with IV Contrast, patient injected with 100 mL of Isovue 370. Ventricles have normal size. There is no mass effect or midline shift. No sign of intracranial hemorr tiago. There is occipital craniotomy defect in the midline. No pathologic enhancement. IMPRESSION: Postsurgical changes are stable compared to old exam. No complicating process seen.
--- NOTE | 2022-04-11 23:31 | CT ---
EXAMINATION TYPE: CT cervical spine w con DATE OF EXAM: 04/11/2022 COMPARISON: 04/06/2022 HISTORY: Recent Chiari decompression sx at [facility] on 04-06-22 CT DLP: 634.9 mGycm Automated exposure control for dose reduction was used. CONTRAST: Performed with IV Contrast, patient injected with 100 mL of Isovue 370. Images obtained from the skull base to T1 vertebra with the IV contrast. The cervical vertebra have normal spacing and alignment. Posterior elements are intact. No compressio n fracture. Facet joints are intact. Prevertebral soft tissues are intact. No paraspinal mass. There is midline posterior subcutaneous fluid collection at the surgery site. There is midline occipital craniotomy defect. The skull base is otherwise intact. There is normal aer ation of the mastoid sinuses. IMPRESSION: Postsurgical changes. No fracture. There is midline posterior fluid collection in the subcutaneous fa t that measures 13 mm in thickness and could be seroma or hematoma. No fat stranding seen to suggest an abscess. The fluid appears not significantly different than recent exam of 04/06/2022.
[2022-04-12 00:38] VITALS: BP 136/85
== END 2022-04-12 00:36 | disposition other institution (70) ==
LOC: EC 20:19
DX: Q07.00 Arnold-Chiari syndrome without spina bifida or hydrocephalus (principal); G89.18 Other acute postprocedural pain; J45.909 Unspecified asthma, uncomplicated; F41.9 Anxiety disorder, unspecified; F31.9 Bipolar disorder, unspecified; F17.290 Nicotine dependence, other tobacco product, uncomplicated; Z88.8 Allergy status to other drugs, medicaments and biological substances; Z88.2 Allergy status to sulfonamides; Z79.899 Other long term (current) drug therapy
CPT/HCPCS: 36415; 80053; 85025; 72126; 70460; 99285; 96374; 96375; 96361 ×2; J2270; J2405; J3010

== ENCOUNTER 2023-09-17 06:03 | Emergency (ER) | payer OTHER ==
[2023-09-17] MEDS: methylPREDNISolone SOD SUCCI 125 MG/2 ML VIAL IV STA (06:28)
--- NOTE | 2023-09-17 06:45 | ED ---
General Adult HPI - General Chief complaint: Shortness of Breath Stated complaint: asthma attack Time Seen by Provider: 09/17/23 06:08 Source: patient, RN notes reviewed Mode of arrival: wheelchair Limitations: no limitations - History of Present Illness Initial comments: 27-year-old female presents emergency department complaint of shortness of breath. Patient states that she worked yesterday states that she went to sleep feeling fine but woke up shortness of breath, wheezing. She does have asthma she states that she has not been hospitalized in 2 years but used to be hospitalized at least 2 times a year for her asthma. Patient denies any fevers, chills no productive cough. Denies any sick contacts no abdominal pain no other complaints. - Related Data Home Medications Medication Instructions Recorded Confirmed Ipratropium-Albuterol Nebulize 3 ml INHALATION RT-Q4H PRN 05/06/18 05/15/21 [Duoneb 0.5 mg-3 mg/3 ml Soln] Acetaminophen/Diphenhydramine 2 tab PO HS PRN 05/15/21 05/15/21 [Tylenol PM 500-25mg] Albuterol Sulfate [Proair Hfa] 2 puff INHALATION RT-Q6H PRN 05/15/21 05/15/21 Fluticasone Propion/Salmeterol 1 puff INHALATION RT-BID 05/15/21 05/15/21 [Advair 250-50 Diskus] Previous Rx's Medication Instructions Recorded Cyclobenzaprine [Flexeril] 10 mg PO TID PRN #15 tab 07/29/21 Ibuprofen [Motrin] 600 mg PO Q8HR PRN #20 tab 07/29/21 Penicillin V Potassium [Pen Vee K] 500 mg PO QID #40 tablet 07/29/21 Clindamycin [Cleocin] 2 tab PO Q6H #60 cap 03/17/22 methylPREDNISolone Dose Pack 4 mg PO DIRECTED #21 tab 04/06/22 [Medrol Dose Pack] Albuterol Inhaler [Ventolin Hfa 2 puff INHALATION QID #8 gm 02/03/23 Inhaler] Albuterol Nebulized [Ventolin 2.5 mg INHALATION Q4H PRN #75 ml 02/03/23 Nebulized] predniSONE 50 mg PO DAILY #5 tab 02/03/23 Ipratropium-Albuterol Nebulize 3 ml INHALATION QID #50 each 09/17/23 [Duoneb 0.5 mg-3 mg/3 ml Soln] predniSONE 50 mg PO DAILY #5 tab 09/17/23 Allergies Allergy/AdvReac Type Severity Reaction Status Date / Time amphetamine aspartate AdvReac Confusion Verified 02/02/23 23:35 [From Adderall] amphetamine sulfate AdvReac Confusion Verified 02/02/23 23:35 [From Adderall] dextroamphetamine saccharate AdvReac Confusion Verified 02/02/23 23:35 [From Adderall] dextroamphetamine sulfate AdvReac Confusion Verified 02/02/23 23:35 [From Adderall] lamotrigine [From Lamictal] AdvReac Hallucinati Verified 02/02/23 23:35 ons Review of Systems ROS Statement: Those systems with pertinent positive or pertinent negative responses have been documented in the HPI. ROS Other: All systems not noted in ROS Statement are negative. Past Medical History Past Medical History: Asthma, Pneumonia Additional Past Medical History / Comment(s): Chiari syndrome History of Any Multi-Drug Resistant Organisms: None Reported Past Surgical History: Section Additional Past Surgical History / Comment(s): Decompression surgery for Chiari Past Anesthesia/Blood Transfusion Reactions: No Reported Reaction Past Psychological History: Anxiety, Bipolar, Depression Smoking Status: Vaper Past Alcohol Use History: None Reported Past Drug Use History: None Reported - Past Family History Mother Family Medical History: No Reported History General Exam Limitations: no limitations General appearance: alert, in no apparent distress Head exam: Present: atraumatic, normocephalic, normal inspection Eye exam: Present: normal appearance, PERRL, EOMI. Absent: scleral icterus, conjunctival injection, periorbital swelling ENT exam: Present: normal exam, normal oropharynx, mucous membranes moist Neck exam: Present: normal inspection, full ROM. Absent: tenderness, meningismus, lymphadenopathy Respiratory exam: Present: respiratory distress, wheezes, decreased breath sounds. Absent: normal lung sounds bilaterally, rales, rhonchi, stridor Cardiovascular Exam: Present: normal rhythm, tachycardia, normal heart sounds. Absent: systolic murmur, diastolic murmur, rubs, gallop, clicks Course Vital Signs 09/17/23 09/17/23 09/17/23 06:05 06:40 07:42 Temperature 98.6 F Pulse Rate 104 H 88 Respiratory 22 22 Rate Blood Pressure 135/64 O2 Sat by Pulse 97 Oximetry 09/17/23 09/17/23 08:04 08:20 Temperature 98.4 F Pulse Rate 92 94 Respiratory 20 Rate Blood Pressure 143/81 O2 Sat by Pulse 99 Oximetry Medical Decision Making - Medical Decision Making Was pt. sent in by a medical professional or institution (, PA, HEALTH AND SAFETY SPECIALIST, urgent care, hospital, or prison...) When possible be specific @ -No Did you speak to anyone other than the patient for history (EMS, parent, family, police, friend...)? What history was obtained from this source @ -No Did you review nursing and triage notes (agree or disagree)? Why? @ -I reviewed and agree with nursing and triage notes Were old charts reviewed (outside hosp., previous admission, EMS record, old EKG, old radiological studies, urgent care reports/EKG's, prison records)? Report findings @ -No old charts were reviewed Differential Diagnosis (chest pain, altered mental status, abdominal pain women, abdominal pain men, vaginal bleeding, weakness, fever, dyspnea, syncope, headache, dizziness, GI bleed, back pain, seizure, CVA, palpatations, mental health, musculoskeletal)? @ -Differential Dyspnea: Coronary syndrome, arrhythmia, tamponade, asthma, COPD, pulmonary embolism, pneumonia, pneumothorax, pulmonary effusion, anaphylaxis, diabetic ketoacidosis, flailed chest, pulmonary contusion, diaphragmatic rupture, anemia, neuromuscular, this is not meant to be an all-inclusive list. EKG interpreted by me (3pts min.). @None X-rays interpreted by me (1pt min.). @ -Chest x-ray shows no acute cardiopulmonary process CT interpreted by me (1pt min.). @ -None done U/S interpreted by me (1pt. min.). @ -None done What testing was considered but not performed or refused? (CT, X-rays, U/S, labs)? Why? @ -None What meds were considered but not given or refused? Why? @ -None Did you discuss the management of the patient with other professionals (professionals i.e. , GORAN, HEALTH AND SAFETY SPECIALIST, lab, RT, psych nurse, social welfare clerk, rn cardiovascular icu, teacher, parking officer, pillowcase turner)? Give summary @ -No Was smoking cessation discussed for >3mins.? @ -No Was critical care preformed (if so, how long)? @ -No Were there social determinants of health that impacted care today? How? (Homelessness, low income, unemployed, alcoholism, drug addiction, transportation, low edu. Level, literacy, decrease access to med. care, fdc, rehab)? @ -No Was there de-escalation of care discussed even if they declined (Discuss DNR or withdrawal of care, Hospice)? DNR status @ -No What co-morbidities impacted this encounter? (DM, HTN, Smoking, COPD, CAD, Cancer, CVA, ARF, Chemo, Hep., AIDS, mental health diagnosis, sleep apnea, morbid obesity)? @ -Asthma Was patient admitted / discharged? Hospital course, mention meds given and r oute, prescriptions, significant lab abnormalities, going to OR and other pertinent info. @ -Discharge patient feels greatly improved today Solu-Medrol, DuoNeb treatment patient discharged on prednisone for acute asthma exacerbation will continue updrafts at home return parameters are discussed. Undiagnosed new problem with uncertain prognosis? @ -No Drug Therapy requiring intensive monitoring for toxicity (Heparin, Nitro, Insulin, Cardizem)? @ -No Were any procedures done? @ -No Diagnosis/symptom? @ -Asthma exacerbation Acute, or Chronic, or Acute on Chronic? @ -Acute Uncomplicated (without systemic symptoms) or Complicated (systemic symptoms)? @ -Uncomplicated Side effects of treatment? @ -No Exacerbation, Progression, or Severe Exacerbation? @ -Exacerbation Poses a threat to life or bodily function? How? (Chest pain, [place], [place], pneumonia, PE, COPD, DKA, ARF, appy, cholecystitis, CVA, Diverticulitis, Homicidal, Suicidal, threat to staff... and all critical care pts) @ -No Disposition Clinical Impression: Asthma exacerbation Disposition: ADMITTED IP TO THIS HOSP Condition: Fair Instructions (If sedation given, give patient instructions): Asthma (ED) Additional Instructions: Please return to the Emergency Department if symptoms worsen or any other concerns. Prescriptions: Ipratropium-Albuterol Nebulize [Duoneb 0.5 mg-3 mg/3 ml Soln] 3 ml INHALATION QID #50 each predniSONE 50 mg PO DAILY #5 tab Is patient prescribed a controlled substance at d/c from ED?: No Referrals: Jacinda Rosas MD [Primary Care Provider] - 1-2 days Time of Disposition: 08:09
[2023-09-17] MEDS: IPRATROPIUM-ALBUTEROL 3 ML NEB INHALATION STA (07:42)
--- NOTE | 2023-09-17 07:48 | XR ---
EXAMINATION TYPE: XR chest 2V DATE OF EXAM: 09/17/2023 COMPARISON: 04/09/2020 HISTORY: 27-year-old female shortness of breath TECHNIQUE: PA and lateral views FINDINGS: Heart normal size. Aorta and pulmonary vasculature within normal limits. Hazy lung densities related to overlying soft tissue. There may be minimal central peribronchial cuffing. No consolidation or ple ural effusion. IMPRESSION: Minimal central peribronchial cuffing may be seen with bronchitis or asthma. No other acute process i s seen.
[2023-09-17 09:10] VITALS: BP 143/81; PULSE 94; RESP 20; TEMP 98.4
== END 2023-09-17 08:23 | disposition other institution (70) ==
LOC: EC 06:03
DX: J45.901 Unspecified asthma with (acute) exacerbation (principal); F17.290 Nicotine dependence, other tobacco product, uncomplicated; Z88.8 Allergy status to other drugs, medicaments and biological substances
CPT/HCPCS: 94640; 71046; 99285; 96374; J2919

== ENCOUNTER → 2023-09-30 | Outpatient (CLI) | payer OTHER ==
--- NOTE | 2023-09-30 20:33 | US ---
EXAMINATION TYPE: US transvaginal DATE OF EXAM: 09/30/2023 COMPARISON: NONE CLINICAL INDICATION: Female, 28 years old with history of R10.2 PELVIC PAIN; pelvic pain lt > rt, irr egular periods, eval for torsion per order TECHNIQUE: Transvaginal (TV). Transabdominal sonographic images of the pelvis were acquired. Date of LMP: 08/12/23 EXAM MEASUREMENTS: Uterus: 8.8x4.0x6.5 cm Endometrial Stripe: 1.0 cm Right Ovary: 3.8x2.7x2.7 cm Left Ovary: 5.1x4.5x4.3 cm 1. Uterus: Anteverted wnl 2. Endometrium: wnl 3. Right Ovary: wnl 4. Left Ovary: 3.5x3.4x3.4cm hemorrhagic cyst. Spectral, color and waveform doppler imaging shows good arterial and venous flow within the ovaries ; there is no evidence for ovarian torsion. 5. Bilateral Adnexa: wnl 6. Posterior cul-de-sac: trace fluid Unremarkable appearance of the anteverted uterus with normal-appearing endometrium. Right ovary appea rs unremarkable without focal lesion. There is a cystic lesion within the left ovary measuring up to 3.5 cm with lacelike internal echogenicity consistent with a hemorrhagic cyst. No ultrasound evidence for ovarian torsion. IMPRESSION: 1. No ultrasound evidence for ovarian torsion. 2. Left ovarian hemorrhagic cyst measuring up to 3.5 cm.
== END | disposition home or self-care (01) ==
LOC: RADUSWWP 15:23
PROVIDERS: ATTEND Family Medicine
DX: N83.202 Unspecified ovarian cyst, left side (principal)
CPT/HCPCS: 76830; 93975

== ENCOUNTER 2023-10-31 16:33 | Emergency (ER) | payer OTHER ==
[2023-10-31 16:38] VITALS: RESP 18
[2023-10-31] MEDS: MORPHINE SULFATE 2 MG/ML SYRINGE IVP STA (17:16)
[2023-10-31] MEDS: SODIUM CHLORIDE 0.9% 1,000 ML IV STA (17:17)
[2023-10-31] MEDS: ONDANSETRON 4 MG/2 ML VIAL IVP STA (17:17)
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
[2023-10-31 17:27] LABS: Basophils # (A) 0.1 k/uL (0-0.2); Basophils % (A) 1 %; Eosinophils # (A) 0.2 k/uL (0-0.7); Eosinophils % (A) 2 %; HCT 40.1 % (34.0-46.0); HGB 12.6 gm/dL (11.4-16.0); Lymphocytes # (A) 1.8 k/uL (1.0-4.8); Lymphocytes % (A) 19 %; MCH 26.8 pg (25.0-35.0); MCHC 31.5 g/dL (31.0-37.0); MCV 85.1 fL (80.0-100.0); Mean Platelet Volume 8.3; Monocytes # (A) 0.5 k/uL (0-1.0); Monocytes % (A) 5 %; Neutrophils % (A) 73 %; Platelet Count 316 k/uL (150-450); RBC 4.71 m/uL (3.80-5.40); RDW 14.3 % (11.5-15.5); WBC 9.6 k/uL (3.8-10.6)
[2023-10-31 17:35] LABS: Anion Gap 9 mmol/L; Carbon Dioxide 23 mmol/L (22-30); Chloride 107 mmol/L (98-107); Glucose 99 mg/dL (74-99); INR 0.9 (<1.2); Partial Thromboplastin Time 23.4 sec (22.0-30.0); Prothrombin Time 9.8 sec (10.0-12.5); Sodium 139 mmol/L (137-145)
[2023-10-31 17:36] LABS: ALT 19 U/L (4-34); AST 21 U/L (14-36); African American GFR (CKD) >90 (>60 ml/min/1.73 sqM); Albumin 4.4 g/dL (3.5-5.0); Alcohol <10 mg/dL; Alkaline Phosphatase 98 U/L (38-126); Blood Urea Nitrogen 13 mg/dL (7-17); Calcium 9.3 mg/dL (8.4-10.2); Non-African American GFR(CKD) >90 (>60 ml/min/1.73 sqM); Total Bilirubin 0.3 mg/dL (0.2-1.3); Total Protein 7.2 g/dL (6.3-8.2)
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
[2023-10-31 18:59] LABS: Amphetamine Screen,Urine Not Detected (NotDetected); Barbiturate Screen,Urine Not Detected (NotDetected); Benzodiazepines Screen,Urine Detected (NotDetected); Cocaine Screen,Urine Not Detected (NotDetected); Methadone Screen, Urine Not Detected (NotDetected); Opiate Screen,Urine Detected (NotDetected); Oxycodone Screen, Urine Not Detected (NotDetected); Phencyclidine Screen,Urine Not Detected (NotDetected); Tricyclic Antidepressant,Urine Not Detected (NotDetected); Urn Cannabinoid Scrn Detected (NotDetected)
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
[2023-10-31 19:21] VITALS: BP 124/63; PULSE 94; TEMP 98
== END 2023-10-31 19:21 | disposition home or self-care (01) ==
LOC: EC 16:33
DX: S09.11XA Strain of muscle and tendon of head, initial encounter (principal); F17.290 Nicotine dependence, other tobacco product, uncomplicated; Z88.8 Allergy status to other drugs, medicaments and biological substances; V89.2XXA Person injured in unspecified motor-vehicle accident, traffic, initial encounter; Y92.411 Interstate highway as the place of occurrence of the external cause
CPT/HCPCS: 36415; 86900; 86901; 80053; 85025; 85610; 85730; 86850; 80306; 80320; 73502; 73030; 71045; 72125; 70450; 99284; 96374; J2270

== ENCOUNTER 2024-01-27 05:39 | Emergency (ER) | payer OTHER ==
--- NOTE | 2024-01-27 06:32 | ED ---
Dizziness HPI - General Chief Complaint: Dizziness Stated Complaint: Dizziness Time Seen by Provider: 01/27/24 05:55 Source: patient, RN notes reviewed Mode of arrival: ambulatory Limitations: no limitations - History of Present Illness Initial Comments: 28-year-old female presents emergency department chief complaint of dizziness. Patient states she had an episode when she woke up along with when she was driving after work. Patient states that she gets some blurred vision she states the room spins and she is short of breath. Patient does admit that she has been sick for the last 3 days with URI symptoms she states she has a cough nonproductive unsure if she had a fever. Denies any prior cardiac disease she states that she has had care malformation with decompression surgery. Patient states this was 2 years ago denies any significant headache, neck pain neck stiffness. Denies any plaints of chest pain or palpitations currently. Denies any abdominal pain. - Related Data Home Medications Medication Instructions Recorded Confirmed Ipratropium-Albuterol Nebulize 3 ml INHALATION RT-Q4H PRN 05/06/18 05/15/21 [Duoneb 0.5 mg-3 mg/3 ml Soln] Acetaminophen/Diphenhydramine 2 tab PO HS PRN 05/15/21 05/15/21 [Tylenol PM 500-25mg] Albuterol Sulfate [Proair Hfa] 2 puff INHALATION RT-Q6H PRN 05/15/21 05/15/21 Fluticasone Propion/Salmeterol 1 puff INHALATION RT-BID 05/15/21 05/15/21 [Advair 250-50 Diskus] Previous Rx's Medication Instructions Recorded Cyclobenzaprine [Flexeril] 10 mg PO TID PRN #15 tab 07/29/21 Ibuprofen [Motrin] 600 mg PO Q8HR PRN #20 tab 07/29/21 Penicillin V Potassium [Pen Vee K] 500 mg PO QID #40 tablet 07/29/21 Clindamycin [Cleocin] 2 tab PO Q6H #60 cap 03/17/22 methylPREDNISolone Dose Pack 4 mg PO DIRECTED #21 tab 04/06/22 [Medrol Dose Pack] Albuterol Inhaler [Ventolin Hfa 2 puff INHALATION QID #8 gm 02/03/23 Inhaler] Albuterol Nebulized [Ventolin 2.5 mg INHALATION Q4H PRN #75 ml 02/03/23 Nebulized] predniSONE 50 mg PO DAILY #5 tab 02/03/23 Ipratropium-Albuterol Nebulize 3 ml INHALATION QID #50 each 09/17/23 [Duoneb 0.5 mg-3 mg/3 ml Soln] predniSONE 50 mg PO DAILY #5 tab 09/17/23 Meclizine [Antivert] 25 mg PO TID PRN #15 tab 01/27/24 predniSONE 50 mg PO DAILY #5 tab 01/27/24 Allergies Allergy/AdvReac Type Severity Reaction Status Date / Time amphetamine aspartate AdvReac Confusion Verified 01/27/24 05:44 [From Adderall] amphetamine sulfate AdvReac Confusion Verified 01/27/24 05:44 [From Adderall] dextroamphetamine saccharate AdvReac Confusion Verified 01/27/24 05:44 [From Adderall] dextroamphetamine sulfate AdvReac Confusion Verified 01/27/24 05:44 [From Adderall] lamotrigine [From Lamictal] AdvReac Hallucinati Verified 01/27/24 05:44 ons Review of Systems ROS Statement: Those systems with pertinent positive or pertinent negative responses have been documented in the HPI. ROS Other: All systems not noted in ROS Statement are negative. Past Medical History Past Medical History: Asthma, Pneumonia Additional Past Medical History / Comment(s): Chiari syndrome History of Any Multi-Drug Resistant Organisms: None Reported Past Surgical History: Section Additional Past Surgical History / Comment(s): Decompression surgery for Chiari Past Anesthesia/Blood Transfusion Reactions: No Reported Reaction Past Psychological History: Anxiety, Bipolar, Depression Smoking Status: Vaper Past Alcohol Use History: None Reported Past Drug Use History: None Reported - Past Family History Mother Family Medical History: No Reported History General Exam Limitations: no limitations General appearance: alert, in no apparent distress Head exam: Present: atraumatic, normocephalic, normal inspection Eye exam: Present: normal appearance, PERRL, EOMI. Absent: scleral icterus, conjunctival injection, periorbital swelling ENT exam: Present: normal exam, mucous membranes moist Neck exam: Present: normal inspection, full ROM. Absent: tenderness, meningismus, lymphadenopathy Respiratory exam: Present: wheezes. Absent: normal lung sounds bilaterally, respiratory distress, rales, rhonchi, stridor Cardiovascular Exam: Present: regular rate, normal rhythm, normal heart sounds. Absent: systolic murmur, diastolic murmur, rubs, gallop, clicks GI/Abdominal exam: Present: soft, normal bowel sounds. Absent: distended, tenderness, guarding, rebound, rigid Neurological exam: Present: alert, oriented X3, CN II-XII intact, reflexes normal. Absent: motor sensory deficit Skin exam: Present: warm, dry, intact, normal color. Absent: rash Course Vital Signs 01/27/24 01/27/24 01/27/24 05:42 06:47 06:57 Temperature 98.1 F Pulse Rate 77 76 77 Respiratory 24 Rate Blood Pressure 124/77 O2 Sat by Pulse 95 Oximetry 01/27/24 07:46 Temperature 98.1 F Pulse Rate 76 Respiratory 18 Rate Blood Pressure 121/56 O2 Sat by Pulse 98 Oximetry EKG Findings - EKG Comments: EKG Findings:: EKG performed at 549 sinus rhythm rate of 80 VT 162 QRS 88 QT/QTc 353/389 - EKG Results: EKG: interpreted by MADELAINE Medical Decision Making - Medical Decision Making Was pt. sent in by a medical professional or institution (, PA, UPPER LINING CEMENTER, urgent care, hospital, or group home...) When possible be specific @ -No Did you speak to anyone other than the patient for history (EMS, parent, family, police, friend...)? What history was obtained from this source @ -No Did you review nursing and triage notes (agree or disagree)? Why? @ -I reviewed and agree with nursing and triage notes Were old charts reviewed (outside hosp., previous admission, EMS record, old EKG, old radiological studies, urgent care reports/EKG's, group home records)? Report findings @ -No old charts were reviewed Differential Diagnosis (chest pain, altered mental status, abdominal pain women, abdominal pain men, vaginal bleeding, weakness, fever, dyspnea, syncope, headache, dizziness, GI bleed, back pain, seizure, CVA, palpatations, mental health, musculoskeletal)? @ -COVID 19, RSV, influenza, pneumonia, acute bronchitis, URI, this list is not all inclusive differential Dizziness: Benign paroxysmal positional Vertigo, Meniere's disease, otitis media, acoustic neuroma, vertebrobasilar insufficiency, cerebellar stroke, encephalitis, hypovolemic, arrhythmia, coronary artery syndrome, anemia, this is not meant to be an all-inclusive list EKG interpreted by me (3pts min.). @ -As above X-rays interpreted by me (1pt min.). @ -Chest x-ray shows no acute cardiopulmonary process CT interpreted by me (1pt min.). @ -None done U/S interpreted by me (1pt. min.). @ -None done What testing was considered but not performed or refused? (CT, X-rays, U/S, labs)? Why? @ -None What meds were considered but not given or refused? Why? @ -None Did you discuss the management of the patient with other professionals (professionals i.e. , PA, UPPER LINING CEMENTER, lab, RT, psych nurse, licensed clinical social worker, pricing/signage team member, teacher, weapons electrical engineering officer, porter sample case)? Give summary @ -No Was smoking cessation discussed for >3mins.? @ -No Was critical care preformed (if so, how long)? @ -No Were there social determinants of health that impacted care today? How? (Homelessness, low income, unemployed, alcoholism, drug addiction, transportation, low edu. Level, literacy, decrease access to med. care, half-way, rehab)? @ -No Was there de-escalation of care discussed even if they declined (Discuss DNR or withdrawal of care, Hospice)? DNR status @ -No What co-morbidities impacted this encounter? (DM, HTN, Smoking, COPD, CAD, Cancer, CVA, ARF, Chemo, Hep., AIDS, mental health diagnosis, sleep apnea, morbid obesity)? @ -Asthma Was patient admitted / discharged? Hospital course, mention meds given and route, prescriptions, significant lab abnormalities, going to OR and other pertinent info. @ -Discharge patient feels greatly improved after Antivert, breathing treatment and fluids. Patient did have some vertigo symptoms associated with a URI, asthmatic bronchitis discharged with steroids and Antivert return transfer discussed Undiagnosed new problem with uncertain prognosis? @ -No Drug Therapy requiring intensive monitoring for toxicity (Heparin, Nitro, Insulin, Cardizem)? @ -No Were any procedures done? @ -No Diagnosis/symptom? @ -Asthmatic bronchitis, vertigo Acute, or Chronic, or Acute on Chronic? @ -Acute Uncomplicated (without systemic symptoms) or Complicated (systemic symptoms)? @ -Uncomplicated Side effects of treatment? @ -No Exacerbation, Progression, or Severe Exacerbation? @ -No Poses a threat to life or bodily function? How? (Chest pain, [place], [place], pneumonia, PE, COPD, DKA, ARF, appy, cholecystitis, CVA, Diverticulitis, Homicidal, Suicidal, threat to staff... and all critical care pts) @ -No - Lab Data Result diagrams: 01/27/24 06:34 01/27/24 06:34 Lab Results 01/27/24 01/27/24 01/27/24 Range/Units 06:34 06:34 06:34 WBC 6.3 (3.8-10.6) k/uL RBC 4.71 (3.80-5.40) m/uL Hgb 12.4 (11.4-16.0) gm/dL Hct 39.3 (34.0-46.0) % MCV 83.6 (80.0-100.0) fL MCH 26.3 (25.0-35.0) pg MCHC 31.5 (31.0-37.0) g/dL RDW 14.5 (11.5-15.5) % Plt Count 288 (150-450) k/uL MPV 8.2 Neutrophils % 73 % Lymphocytes % 19 % Monocytes % 5 % Eosinophils % 2 % Basophils % 0 % Neutrophils # 4.6 (1.3-7.7) k/uL Lymphocytes # 1.2 (1.0-4.8) k/uL Monocytes # 0.3 (0-1.0) k/uL Eosinophils # 0.1 (0-0.7) k/uL Basophils # 0.0 (0-0.2) k/uL Hypochromasia Slight Sodium 139 (137-145) mmol/L Potassium 3.6 (3.5-5.1) mmol/L Chloride 105 (98-107) mmol/L Carbon Dioxide 28 (22-30) mmol/L Anion Gap 6 mmol/L BUN 14 (7-17) mg/dL Creatinine 0.66 (0.52-1.04) mg/dL Est GFR (CKD-EPI)AfAm >90 (>60 ml/min/1.73 sqM) Est GFR (CKD-EPI)NonAf >90 (>60 ml/min/1.73 sqM) Glucose 113 H (74-99) mg/dL Calcium 9.3 (8.4-10.2) mg/dL Magnesium 2.0 (1.6-2.3) mg/dL Total Bilirubin 0.4 (0.2-1.3) mg/dL AST 24 (14-36) U/L ALT 19 (4-34) U/L Alkaline Phosphatase 90 (38-126) U/L Total Protein 6.9 (6.3-8.2) g/dL Albumin 4.1 (3.5-5.0) g/dL Influenza Type A (PCR) Not Detected (Not Detectd) Influenza Type B (PCR) Not Detected (Not Detectd) RSV (PCR) Not Detected (Not Detectd) SARS-CoV-2 (PCR) Not Detected (Not Detectd) Disposition Clinical Impression: Asthmatic bronchitis, Vertigo Disposition: HOME SELF-CARE Condition: Stable Instructions (If sedation given, give patient instructions): Dizziness (ED) Additional Instructions: Please return to the Emergency Department if symptoms worsen or any other concerns. Prescriptions: Meclizine [Antivert] 25 mg PO TID PRN #15 tab PRN Reason: Vertigo predniSONE 50 mg PO DAILY #5 tab Is patient prescribed a controlled substance at d/c from ED?: No Referrals: Jacinda Rosas MD [Primary Care Provider] - 1-2 days Time of Disposition: 07:51
[2024-01-27] MEDS: SODIUM CHLORIDE 0.9% 1,000 ML IV ONE (06:36)
[2024-01-27] MEDS: MECLIZINE 12.5 MG TAB PO STA (06:36)
[2024-01-27 06:48] LABS: Basophils % (A) 0 %; Eosinophils # (A) 0.1 k/uL (0-0.7); Eosinophils % (A) 2 %; HCT 39.3 % (34.0-46.0); HGB 12.4 gm/dL (11.4-16.0); Hypochromasia Slight; Lymphocytes # (A) 1.2 k/uL (1.0-4.8); Lymphocytes % (A) 19 %; MCH 26.3 pg (25.0-35.0); MCHC 31.5 g/dL (31.0-37.0); MCV 83.6 fL (80.0-100.0); Mean Platelet Volume 8.2; Monocytes # (A) 0.3 k/uL (0-1.0); Monocytes % (A) 5 %; Neutrophils # (A) 4.6 k/uL (1.3-7.7); Neutrophils % (A) 73 %; Platelet Count 288 k/uL (150-450); RBC 4.71 m/uL (3.80-5.40); RDW 14.5 % (11.5-15.5); WBC 6.3 k/uL (3.8-10.6)
[2024-01-27] MEDS: IPRATROPIUM-ALBUTEROL 3 ML NEB INHALATION STA (06:50)
--- NOTE | 2024-01-27 07:02 | XR ---
EXAMINATION TYPE: XR chest 2V DATE OF EXAM: 01/27/2024 COMPARISON: Chest x-ray October 31, 2023 HISTORY: Shortness of breath TECHNIQUE: Frontal and lateral views of the chest are obtained. FINDINGS: There is no focal air space opacity, pleural effusion, or pneumothorax seen. The cardiac silhouette size remains within normal limits. The osseous structures are intact. IMPRESSION: No acute cardiopulmonary process. [facility], , 01/27/2024 7:00 AM
[2024-01-27 07:04] LABS: ALT 19 U/L (4-34); AST 24 U/L (14-36); African American GFR (CKD) >90 (>60 ml/min/1.73 sqM); Albumin 4.1 g/dL (3.5-5.0); Alkaline Phosphatase 90 U/L (38-126); Anion Gap 6 mmol/L; Blood Urea Nitrogen 14 mg/dL (7-17); Calcium 9.3 mg/dL (8.4-10.2); Carbon Dioxide 28 mmol/L (22-30); Chloride 105 mmol/L (98-107); Glucose 113 mg/dL (74-99); Non-African American GFR(CKD) >90 (>60 ml/min/1.73 sqM); Potassium 3.6 mmol/L (3.5-5.1); Sodium 139 mmol/L (137-145); Total Bilirubin 0.4 mg/dL (0.2-1.3); Total Protein 6.9 g/dL (6.3-8.2)
[2024-01-27 07:48] VITALS: RESP 18
[2024-01-27 08:21] VITALS: BP 126/62; PULSE 72; TEMP 98
== END 2024-01-27 08:21 | disposition home or self-care (01) ==
LOC: EC 05:39
CPT/HCPCS: 36415; 71046; 80053; 83735; 85025; 87636; 93005; 94640; 96360; 99284

== ENCOUNTER 2024-04-20 08:50 | Emergency (ER) | payer OTHER ==
[2024-04-20 08:57] VITALS: TEMP 98.7
--- NOTE | 2024-04-20 09:27 | XR ---
EXAMINATION TYPE: XR chest 2V DATE OF EXAM: 04/20/2024 9:18 AM COMPARISON: 01/27/2024 CLINICAL INDICATION: Female, 28 years old with history of cough, TECHNIQUE: XR chest 2V view(s) obtained. FINDINGS: The heart size is normal. The pulmonary vasculature is normal. The lungs are clear. IMPRESSION: 1. No acute pulmonary process. [facility], , 04/20/2024 9:25 AM
[2024-04-20] MEDS: methylPREDNISolone SOD SUCCI 125 MG/2 ML VIAL IM ONE (09:28)
[2024-04-20] MEDS: IPRATROPIUM-ALBUTEROL 3 ML NEB INHALATION STA (10:12)
--- NOTE | 2024-04-20 10:55 | ED ---
URI HPI - General Chief Complaint: Upper Respiratory Infection Stated Complaint: SOB, sore throat Time Seen by Provider: 04/20/24 09:09 Source: patient, RN notes reviewed Mode of arrival: ambulatory Limitations: no limitations - History of Present Illness Initial Comments: 28-year-old female presents emergency department complaint of cough, shortness of breath. Patient states that she has been sick over the last several days daughter recently diagnosed with strep. Patient has sore throat cough congestion increasing wheezing with her asthma. No relief with her inhaler. - Related Data Home Medications Medication Instructions Recorded Confirmed Ipratropium-Albuterol Nebulize 3 ml INHALATION RT-Q4H PRN 05/06/18 05/15/21 [Duoneb 0.5 mg-3 mg/3 ml Soln] Acetaminophen/Diphenhydramine 2 tab PO HS PRN 05/15/21 05/15/21 [Tylenol PM 500-25mg] Albuterol Sulfate [Proair Hfa] 2 puff INHALATION RT-Q6H PRN 05/15/21 05/15/21 Fluticasone Propion/Salmeterol 1 puff INHALATION RT-BID 05/15/21 05/15/21 [Advair 250-50 Diskus] Previous Rx's Medication Instructions Recorded Cyclobenzaprine [Flexeril] 10 mg PO TID PRN #15 tab 07/29/21 Ibuprofen [Motrin] 600 mg PO Q8HR PRN #20 tab 07/29/21 Penicillin V Potassium [Pen Vee K] 500 mg PO QID #40 tablet 07/29/21 Clindamycin [Cleocin] 2 tab PO Q6H #60 cap 03/17/22 methylPREDNISolone Dose Pack 4 mg PO DIRECTED #21 tab 04/06/22 [Medrol Dose Pack] Albuterol Inhaler [Ventolin Hfa 2 puff INHALATION QID #8 gm 02/03/23 Inhaler] Albuterol Nebulized [Ventolin 2.5 mg INHALATION Q4H PRN #75 ml 02/03/23 Nebulized] predniSONE 50 mg PO DAILY #5 tab 02/03/23 Ipratropium-Albuterol Nebulize 3 ml INHALATION QID #50 each 09/17/23 [Duoneb 0.5 mg-3 mg/3 ml Soln] predniSONE 50 mg PO DAILY #5 tab 09/17/23 Meclizine [Antivert] 25 mg PO TID PRN #15 tab 01/27/24 predniSONE 50 mg PO DAILY #5 tab 01/27/24 Azithromycin [Zithromax Z Pack] 0 tab PO DIRECTED #6 tab 04/20/24 Ipratropium-Albuterol Nebulize 3 ml INHALATION QID #25 each 04/20/24 [Duoneb 0.5 mg-3 mg/3 ml Soln] predniSONE 50 mg PO DAILY #5 tab 04/20/24 Allergies Allergy/AdvReac Type Severity Reaction Status Date / Time amphetamine aspartate AdvReac Confusion Verified 04/20/24 08:57 [From Adderall] amphetamine sulfate AdvReac Confusion Verified 04/20/24 08:57 [From Adderall] dextroamphetamine saccharate AdvReac Confusion Verified 04/20/24 08:57 [From Adderall] dextroamphetamine sulfate AdvReac Confusion Verified 04/20/24 08:57 [From Adderall] lamotrigine [From Lamictal] AdvReac Hallucinati Verified 04/20/24 08:57 ons Review of Systems ROS Statement: Those systems with pertinent positive or pertinent negative responses have been documented in the HPI. ROS Other: All systems not noted in ROS Statement are negative. Past Medical History Past Medical History: Asthma, Pneumonia Additional Past Medical History / Comment(s): Chiari syndrome History of Any Multi-Drug Resistant Organisms: None Reported Past Surgical History: Section Additional Past Surgical History / Comment(s): Decompression surgery for Chiari Past Anesthesia/Blood Transfusion Reactions: No Reported Reaction Past Psychological History: Anxiety, Bipolar, Depression Smoking Status: Vaper Past Alcohol Use History: None Reported Past Drug Use History: None Reported - Past Family History Mother Family Medical History: No Reported History General Exam Limitations: no limitations General appearance: alert, in no apparent distress Head exam: Present: atraumatic, normocephalic, normal inspection Eye exam: Present: normal appearance, PERRL, EOMI. Absent: scleral icterus, conjunctival injection, periorbital swelling ENT exam: Present: normal exam, normal oropharynx, mucous membranes moist Neck exam: Present: normal inspection, full ROM. Absent: tenderness, meningismus, lymphadenopathy Respiratory exam: Present: wheezes. Absent: normal lung sounds bilaterally, respiratory distress, rales, rhonchi, stridor Cardiovascular Exam: Present: normal rhythm, tachycardia, normal heart sounds. Absent: systolic murmur, diastolic murmur, rubs, gallop, clicks Course Vital Signs 04/20/24 04/20/24 04/20/24 08:54 10:03 10:11 Temperature 98.7 F Pulse Rate 108 H Respiratory 18 24 24 Rate Blood Pressure 138/83 O2 Sat by Pulse 92 L 99 Oximetry 04/20/24 04/20/24 10:14 10:30 Temperature Pulse Rate 92 94 Respiratory Rate Blood Pressure O2 Sat by Pulse Oximetry Medical Decision Making - Medical Decision Making Was pt. sent in by a medical professional or institution (, PA, RADIOTELEGRAPH OPERATOR SERVICER, urgent care, hospital, or correction...) When possible be specific @ -[No] Did you speak to anyone other than the patient for history (EMS, parent, family, police, friend...)? What history was obtained from this source @ -[No] Did you review nursing and triage notes (agree or disagree)? Why? @ -[I reviewed and agree with nursing and triage notes] Were old charts reviewed (outside hosp., previous admission, EMS record, old EKG, old radiological studies, urgent care reports/EKG's, correction records)? Report findings @ -[No old charts were reviewed] Differential Diagnosis (chest pain, altered mental status, abdominal pain women, abdominal pain men, vaginal bleeding, weakness, fever, dyspnea, syncope, headache, dizziness, GI bleed, back pain, seizure, CVA, palpatations, mental health, musculoskeletal)? @ -Differential Dyspnea: Coronary syndrome, arrhythmia, tamponade, asthma, COPD, pulmonary embolism, pneumonia, pneumothorax, pulmonary effusion, anaphylaxis, diabetic ketoacidosis, flailed chest, pulmonary contusion, diaphragmatic rupture, anemia, neuromuscular, this is not meant to be an all-inclusive list. EKG interpreted by me (3pts min.). @ -None X-rays interpreted by me (1pt min.). @ -Chest x-ray 2 view no acute infiltrate no pneumothorax CT interpreted by me (1pt min.). @ -[None done] U/S interpreted by me (1pt. min.). @ -[None done] What testing was considered but not performed or refused? (CT, X-rays, U/S, labs)? Why? @ -[None] What meds were considered but not given or refused? Why? @ -[None] Did you discuss the management of the patient with other professionals (professionals i.e. , PA, RADIOTELEGRAPH OPERATOR SERVICER, lab, RT, psych nurse, social service worker, cctv technician, teacher, peace officer, casey saw operator)? Give summary @ -[No] Was smoking cessation discussed for >3mins.? @ -[No] Was critical care preformed (if so, how long)? @ -[No] Were there social determinants of health that impacted care today? How? (Homelessness, low income, unemployed, alcoholism, drug addiction, transportation, low edu. Level, literacy, decrease access to med. care, [facility], rehab)? @ -[No] Was there de-escalation of care discussed even if they declined (Discuss DNR or withdrawal of care, Hospice)? DNR status @ -[No] What co-morbidities impacted this encounter? (DM, HTN, Smoking, COPD, CAD, Cancer, CVA, ARF, Chemo, Hep., AIDS, mental health diagnosis, sleep apnea, morbid obesity)? @ -Asthma Was patient admitted / discharged? Hospital course, mention meds given and route, prescriptions, significant lab abnormalities, going to OR and other pertinent info. @ -Discharge patient feels greatly improved after DuoNeb treatment, Solu-Medrol patient negative Cepheid, no infiltrate on x-ray. Patient has acute asthma exacerbation, acute tracheobronchitis. Patient discharged in stable condition. Undiagnosed new problem with uncertain prognosis? @ -[No] Drug Therapy requiring intensive monitoring for toxicity (Heparin, Nitro, Insulin, Cardizem)? @ -[No] Were any procedures done? @ -[No] Diagnosis/symptom? @ -Asthma exacerbation, acute tracheobronchitis Acute, or Chronic, or Acute on Chronic? @ -Acute Uncomplicated (without systemic symptoms) or Complicated (systemic symptoms)? @ -Complicated Side effects of treatment? @ -[No] Exacerbation, Progression, or Severe Exacerbation? @ -Exacerbation Poses a threat to life or bodily function? How? (Chest pain, [place], [place], pneumonia, PE, COPD, DKA, ARF, appy, cholecystitis, CVA, Diverticulitis, Homicidal, Suicidal, threat to staff... and all critical care pts) @ -Yes low likelihood, respiratory arrest - Lab Data Lab Results 04/20/24 04/20/24 Range/Units 09:00 09:00 Influenza Type A (PCR) Not Detected (Not Detectd) Influenza Type B (PCR) Not Detected (Not Detectd) RSV (PCR) Not Detected (Not Detectd) SARS-CoV-2 (PCR) Not Detected (Not Detectd) Group A Strep (PCR) NOT DETECTED (Not Detectd) Disposition Clinical Impression: Tracheobronchitis, Asthma exacerbation Disposition: HOME SELF-CARE Condition: Stable Instructions (If sedation given, give patient instructions): Upper Respiratory Infection (ED) Additional Instructions: Please return to the Emergency Department if symptoms worsen or any other concerns. Prescriptions: Ipratropium-Albuterol Nebulize [Duoneb 0.5 mg-3 mg/3 ml Soln] 3 ml INHALATION QID #25 each predniSONE 50 mg PO DAILY #5 tab Azithromycin [Zithromax Z Pack] 0 tab PO DIRECTED #6 tab Is patient prescribed a controlled substance at d/c from ED?: No Referrals: Jacinda Rosas MD [Primary Care Provider] - 1-2 days Time of Disposition: 10:52
[2024-04-20 11:30] VITALS: BP 141/85; PULSE 103; RESP 20
== END 2024-04-20 11:30 | disposition home or self-care (01) ==
LOC: EC 08:50
DX: J45.901 Unspecified asthma with (acute) exacerbation (principal); R00.0 Tachycardia, unspecified; F17.290 Nicotine dependence, other tobacco product, uncomplicated; Z88.8 Allergy status to other drugs, medicaments and biological substances
CPT/HCPCS: 94640; 87651; 87636; 71046; 99285; 96372; J2919

== ENCOUNTER 2024-06-25 13:19 | Emergency (ER) | payer OTHER ==
[2024-06-25 13:26] VITALS: BP 118/78; RESP 16; TEMP 98
--- NOTE | 2024-06-25 13:40 | ED ---
General Adult HPI - General Chief complaint: Neuro Symptoms/Deficit Stated complaint: Sent from urgent care-low oxygen Time Seen by Provider: 06/25/24 13:36 Source: patient Mode of arrival: ambulatory Limitations: no limitations - History of Present Illness Initial comments: This patient is a 28-year-old woman who presents to have evaluation of right-si ded facial pain. She states that it has been getting worse since the morning. She also has some cough and congestion associated. The patient has not noted fever. No change in vision. No ear pain or change in hearing. -: hour(s) Location: face Radiation: non-radiation Quality: aching Consistency: constant Improves with: none Worsens with: none Associated Symptoms: cough Treatments Prior to Arrival: none - Related Data Home Medications Medication Instructions Recorded Confirmed Ipratropium-Albuterol Nebulize 3 ml INHALATION RT-Q4H PRN 05/06/18 05/15/21 [Duoneb 0.5 mg-3 mg/3 ml Soln] Acetaminophen/Diphenhydramine 2 tab PO HS PRN 05/15/21 05/15/21 [Tylenol PM 500-25mg] Albuterol Sulfate [Proair Hfa] 2 puff INHALATION RT-Q6H PRN 05/15/21 05/15/21 Fluticasone Propion/Salmeterol 1 puff INHALATION RT-BID 05/15/21 05/15/21 [Advair 250-50 Diskus] Previous Rx's Medication Instructions Recorded Cyclobenzaprine [Flexeril] 10 mg PO TID PRN #15 tab 07/29/21 Ibuprofen [Motrin] 600 mg PO Q8HR PRN #20 tab 07/29/21 Penicillin V Potassium [Pen Vee K] 500 mg PO QID #40 tablet 07/29/21 Clindamycin [Cleocin] 2 tab PO Q6H #60 cap 03/17/22 methylPREDNISolone Dose Pack 4 mg PO DIRECTED #21 tab 04/06/22 [Medrol Dose Pack] Albuterol Inhaler [Ventolin Hfa 2 puff INHALATION QID #8 gm 02/03/23 Inhaler] Albuterol Nebulized [Ventolin 2.5 mg INHALATION Q4H PRN #75 ml 02/03/23 Nebulized] predniSONE 50 mg PO DAILY #5 tab 09/27/23 Ipratropium-Albuterol Nebulize 3 ml INHALATION QID #50 each 09/17/23 [Duoneb 0.5 mg-3 mg/3 ml Soln] predniSONE 50 mg PO DAILY #5 tab 09/17/23 Meclizine [Antivert] 25 mg PO TID PRN #15 tab 01/27/24 predniSONE 50 mg PO DAILY #5 tab 01/27/24 Azithromycin [Zithromax Z Pack] 0 tab PO DIRECTED #6 tab 04/20/24 Ipratropium-Albuterol Nebulize 3 ml INHALATION QID #25 each 04/20/24 [Duoneb 0.5 mg-3 mg/3 ml Soln] predniSONE 50 mg PO DAILY #5 tab 04/20/24 Mometasone Furoate [Nasonex 24Hr 1 spray NASAL DAILY #17 ml 06/25/24 Allergy] Pseudoephedrine 12Hr [Sudafed 12 120 mg PO Q12HR #14 tab 06/25/24 Hour] Amoxic-Pot Clav 875-125Mg 1 tab PO Q12HR #20 tab 06/26/24 [Augmentin 875-125] predniSONE 50 mg PO DAILY #5 tab 06/26/24 Fluconazole [Diflucan] 150 mg PO ONCE #2 tab 07/02/24 Doxycycline [Vibramycin] 100 mg PO BID #20 capsule 07/03/24 Allergies Allergy/AdvReac Type Severity Reaction Status Date / Time clindamycin Allergy Dyspnea Verified 07/02/24 23:40 amphetamine aspartate AdvReac Confusion Verified 07/02/24 17:14 [From Adderall] amphetamine sulfate AdvReac Confusion Verified 07/02/24 17:14 [From Adderall] dextroamphetamine saccharate AdvReac Confusion Verified 07/02/24 17:14 [From Adderall] dextroamphetamine sulfate AdvReac Confusion Verified 07/02/24 17:14 [From Adderall] lamotrigine [From Lamictal] AdvReac Hallucinati Verified 07/02/24 17:14 ons Review of Systems ROS Statement: Those systems with pertinent positive or pertinent negative responses have been documented in the HPI. ROS Other: All systems not noted in ROS Statement are negative. Constitutional: Denies: fever, chills, weakness Eyes: Denies: eye pain, eye discharge, vision change ENT: Reports: other (Right maxillary facial pain). Denies: ear pain, hearing loss Respiratory: Reports: as per HPI, cough. Denies: dyspnea, wheezes Cardiovascular: Denies: chest pain, palpitations, syncope Gastrointestinal: Denies: abdominal pain, nausea, vomiting Skin: Denies: rash Neurological: Reports: as per HPI, headache. Denies: weakness, numbness, paresthesias, confusion Past Medical History Past Medical History: Asthma, Pneumonia Additional Past Medical History / Comment(s): Chiari syndrome History of Any Multi-Drug Resistant Organisms: None Reported Past Surgical History: Section Additional Past Surgical History / Comment(s): Decompression surgery for Chiari Past Anesthesia/Blood Transfusion Reactions: No Reported Reaction Past Psychological History: Anxiety, Bipolar, Depression Smoking Status: Former smoker Past Alcohol Use History: None Reported Past Drug Use History: None Reported - Past Family History Mother Family Medical History: No Reported History General Exam Limitations: no limitations General appearance: alert, in no apparent distress Head exam: Present: atraumatic, normocephalic Eye exam: Present: normal appearance, PERRL, EOMI. Absent: scleral icterus, conjunctival injection, nystagmus ENT exam: Present: normal oropharynx, mucous membranes moist, TM's normal bilaterally, normal external ear exam, other (There is tenderness to percussion right maxillary) Neck exam: Present: normal inspection, full ROM. Absent: tenderness, meningismus Respiratory exam: Present: normal lung sounds bilaterally. Absent: respiratory distress, wheezes, rales, rhonchi, stridor, accessory muscle use Cardiovascular Exam: Present: regular rate, normal rhythm, normal heart sounds. Absent: systolic murmur, diastolic murmur, rubs, gallop GI/Abdominal exam: Present: soft. Absent: distended, tenderness, guarding, rebound, rigid, mass Extremities exam: Present: normal inspection, normal capillary refill. Absent: pedal edema, calf tenderness Back exam: Present: normal inspection Neurological exam: Present: alert, oriented X3, CN II-XII intact. Absent: motor sensory deficit Skin exam: Present: warm, dry, intact, normal color. Absent: rash Course Vital Signs 06/25/24 06/25/24 06/25/24 13:23 15:26 15:39 Temperature 98 F 98 F Pulse Rate 77 88 88 Respiratory 16 16 16 Rate Blood Pressure 118/78 118/78 O2 Sat by Pulse 95 97 97 Oximetry EKG Findings - EKG Results: EKG: interpreted by KIESHAD, sinus rhythm (With sinus arrhythmia, rate 71 bpm), normal axis, normal QRS, normal ST/T, no acute changes - VT, Pacemaker, Normal: Normal tracing: normal tracing Medical Decision Making - Medical Decision Making The patient had marked maxillary tenderness to percussion. She is sent for CT scan that does reveal presence of sinusitis. Was pt. sent in by a medical professional or institution (, PA, TRANSMISSION CALIBRATION ENGINEER, urgent care, hospital, or usp...) When possible be specific @ -[No] Did you speak to anyone other than the patient for history (EMS, parent, family, police, friend...)? What history was obtained from this source @ -[No] Did you review nursing and triage notes (agree or disagree)? Why? @ -[I reviewed and agree with nursing and triage notes] Were old charts reviewed (outside hosp., previous admission, EMS record, old EKG, old radiological studies, urgent care reports/EKG's, usp records)? Report findings @ -[No old charts were reviewed] Differential Diagnosis (chest pain, altered mental status, abdominal pain women, abdominal pain men, vaginal bleeding, weakness, fever, dyspnea, syncope, headache, dizziness, GI bleed, back pain, seizure, CVA, palpatations, mental health, musculoskeletal)? @ -[n differential Headache: Migraine, tension, cluster, carbon monoxide, central venous thrombosis, pension karma temporal arteritis, acute closure glaucoma, intercranial hemorrhage, mastoiditis, sinusitis, head injury, this is not meant to be an all-inclusive list. EKG interpreted by me (3pts min.). @ -[As above] X-rays interpreted by me (1pt min.). @ -[None done] CT interpreted by me (1pt min.). @ -[I interpreted as above U/S interpreted by me (1pt. min.). @ -[None done] What testing was considered but not performed or refused? (CT, X-rays, U/S, labs)? Why? @ -[None] What meds were considered but not given or refused? Why? @ -[None] Did you discuss the management of the patient with other professionals (professionals i.e. , PA, TRANSMISSION CALIBRATION ENGINEER, lab, RT, psych nurse, vp digital marketing social media and crm, interviewing clerk, teacher, ordnance corps officer, case packer and sealer)? Give summary @ -[No] Was smoking cessation discussed for >3mins.? @ -[No] Was critical care preformed (if so, how long)? @ -[No] Were there social determinants of health that impacted care today? How? (Homelessness, low income, unemployed, alcoholism, drug addiction, transportation, low edu. Level, literacy, decrease access to med. care, longterm, rehab)? @ -[No] Was there de-escalation of care discussed even if they declined (Discuss DNR or withdrawal of care, Hospice)? DNR status @ -[No] What co-morbidities impacted this encounter? (DM, HTN, Smoking, COPD, CAD, Cancer, CVA, ARF, Chemo, Hep., AIDS, mental health diagnosis, sleep apnea, morbid obesity)? @ -[None] Was patient admitted / discharged? Hospital course, mention meds given and route, prescriptions, significant lab abnormalities, going to OR and other pertinent info. @ -[Patient is a 28-year-old woman with right facial pain and found to have sinusitis. The patient is given nasal steroid and decongestant as well as analgesia. Discussed appropriate further care including starting antibiotic if there is no improvement over the short-term. She will return immediately should there be any worsening or new symptoms. Undiagnosed new problem with uncertain prognosis? @ -[No] Drug Therapy requiring intensive monitoring for toxicity (Heparin, Nitro, Insulin, Cardizem)? @ -[No] Were any procedures done? @ -[No] Diagnosis/symptom? @ -[Acute headache Acute sinusitis Acute, or Chronic, or Acute on Chronic? @ -[Acute Uncomplicated (without systemic symptoms) or Complicated (systemic symptoms)? @ -[Uncomplicated Side effects of treatment? @ -[No] Exacerbation, Progression, or Severe Exacerbation? @ -[No] Poses a threat to life or bodily function? How? (Chest pain, USA, VT, pneumonia, PE, COPD, DKA, ARF, appy, cholecystitis, CVA, Diverticulitis, Homicidal, Suicidal, threat to staff... and all critical care pts) @ -[No] All treatments are based on ideal body weight as in ED triage Disposition Clinical Impression: Acute sinusitis Disposition: HOME SELF-CARE Condition: Good Instructions (If sedation given, give patient instructions): Rhinosinusitis (ED) Prescriptions: Mometasone Furoate [Nasonex 24Hr Allergy] 1 spray NASAL DAILY #17 ml Pseudoephedrine 12Hr [Sudafed 12 Hour] 120 mg PO Q12HR #14 tab Is patient prescribed a controlled substance at d/c from ED?: No Referrals: Jacinda Rosas MD [Primary Care Provider] - 1-2 days
--- NOTE | 2024-06-25 14:56 | CT ---
EXAMINATION TYPE: CT brain wo con DATE OF EXAM: 06/25/2024 2:22 PM COMPARISON: 10/28/2023. CLINICAL INDICATION: Female, 28 years old with history of Right headache/facial pain, c/o facial swel ling TECHNIQUE: Brain: Axial CT images of the brain were obtained with coronal and sagittal reformats created and rev iewed. Contrast used: None. Oral contrast used: None. CT DLP: 1133.4 mGycm, Automated exposure control for dose reduction was used. FINDINGS: Brain: Extra-axial spaces: No abnormal extra-axial fluid collections. Ventricular system: Within normal limits Cerebral parenchyma: No acute intraparenchymal hemorrhage or mass effect. The chaves-white junction is well differentiated. Cerebellum: Unremarkable. Mass effect: No evidence of midline shift. Intracranial vasculature: unremarkable Soft tissues: Soft tissue swelling near the right cheek partially visualized. Calvarium/osseous structures: No depressed skull fracture. Occipital craniectomy changes present. Paranasal sinuses and mastoid air cells: Mild scattered paranasal sinus disease. Visualized orbits: Orbital contents are intact. IMPRESSION: 1. No acute intracranial process. 2. Soft tissue swelling of the right cheek partially visualized correlate for cellulitis. Clinical c orrelation advised. [facility], , 06/25/2024 2:53 PM
[2024-06-25] MEDS: traMADol 50 MG TAB PO STA (15:13)
[2024-06-25] MEDS: IBUPROFEN 600 MG TAB PO STA (15:14)
[2024-06-25 15:34] VITALS: PULSE 88
== END 2024-06-25 15:40 | disposition home or self-care (01) ==
LOC: EC 13:19
DX: J01.90 Acute sinusitis, unspecified (principal); Z87.891 Personal history of nicotine dependence; Z88.1 Allergy status to other antibiotic agents; Z88.8 Allergy status to other drugs, medicaments and biological substances
CPT/HCPCS: 70450; 99284

== ENCOUNTER 2024-07-02 17:04 | Emergency (ER) | payer OTHER ==
--- NOTE | 2024-07-02 17:42 | ED ---
General Adult HPI - General Chief complaint: Headache Stated complaint: face pain Time Seen by Provider: 07/02/24 17:36 Source: patient, RN notes reviewed Mode of arrival: ambulatory Limitations: no limitations - History of Present Illness Initial comments: 28-year-old female presenting for right-sided facial swelling x 1 week. Reports pain, pressure, and swelling to the right of the nose, right cheek, and gums. Reports she has pain in all of her teeth and gums. Also endorses sore throat. She was seen last week for this issue where she underwent CT scan which showed soft tissue swelling and was diagnosed with cellulitis. She was given a dose of Rocephin, steroid, and anti-inflammatory in the ER and prescribed an outpatient course of Augmentin, Keflex, and steroids. She finished the steroids yesterday and is still taking the antibiotics. States the severity of the swelling is intermittent but she is having difficulty eating and drinking due to the pain. No difficulty breathing or swallowing. Denies new medications, lotions, soaps, detergents. Has never had this before. History of Chiari malformation type II and asthma. - Related Data Home Medications Medication Instructions Recorded Confirmed Ipratropium-Albuterol Nebulize 3 ml INHALATION RT-Q4H PRN 05/06/18 05/15/21 [Duoneb 0.5 mg-3 mg/3 ml Soln] Acetaminophen/Diphenhydramine 2 tab PO HS PRN 05/15/21 05/15/21 [Tylenol PM 500-25mg] Albuterol Sulfate [Proair Hfa] 2 puff INHALATION RT-Q6H PRN 05/15/21 05/15/21 Fluticasone Propion/Salmeterol 1 puff INHALATION RT-BID 05/15/21 05/15/21 [Advair 250-50 Diskus] Previous Rx's Medication Instructions Recorded Cyclobenzaprine [Flexeril] 10 mg PO TID PRN #15 tab 07/29/21 Ibuprofen [Motrin] 600 mg PO Q8HR PRN #20 tab 07/29/21 Penicillin V Potassium [Pen Vee K] 500 mg PO QID #40 tablet 07/29/21 Clindamycin [Cleocin] 2 tab PO Q6H #60 cap 03/17/22 methylPREDNISolone Dose Pack 4 mg PO DIRECTED #21 tab 04/06/22 [Medrol Dose Pack] Albuterol Inhaler [Ventolin Hfa 2 puff INHALATION QID #8 gm 02/03/23 Inhaler] Albuterol Nebulized [Ventolin 2.5 mg INHALATION Q4H PRN #75 ml 02/03/23 Nebulized] predniSONE 50 mg PO DAILY #5 tab 02/03/23 Ipratropium-Albuterol Nebulize 3 ml INHALATION QID #50 each 09/17/23 [Duoneb 0.5 mg-3 mg/3 ml Soln] predniSONE 50 mg PO DAILY #5 tab 09/17/23 Meclizine [Antivert] 25 mg PO TID PRN #15 tab 01/27/24 predniSONE 50 mg PO DAILY #5 tab 01/27/24 Azithromycin [Zithromax Z Pack] 0 tab PO DIRECTED #6 tab 04/20/24 Ipratropium-Albuterol Nebulize 3 ml INHALATION QID #25 each 04/20/24 [Duoneb 0.5 mg-3 mg/3 ml Soln] predniSONE 50 mg PO DAILY #5 tab 04/20/24 Mometasone Furoate [Nasonex 24Hr 1 spray NASAL DAILY #17 ml 06/25/24 Allergy] Pseudoephedrine 12Hr [Sudafed 12 120 mg PO Q12HR #14 tab 06/25/24 Hour] Amoxic-Pot Clav 875-125Mg 1 tab PO Q12HR #20 tab 06/26/24 [Augmentin 875-125] predniSONE 50 mg PO DAILY #5 tab 06/26/24 Fluconazole [Diflucan] 150 mg PO ONCE #2 tab 07/02/24 clindamycin HCL 300 mg PO TID 10 Days #30 cap 07/02/24 Allergies Allergy/AdvReac Type Severity Reaction Status Date / Time amphetamine aspartate AdvReac Confusion Verified 07/02/24 17:14 [From Adderall] amphetamine sulfate AdvReac Confusion Verified 07/02/24 17:14 [From Adderall] dextroamphetamine saccharate AdvReac Confusion Verified 07/02/24 17:14 [From Adderall] dextroamphetamine sulfate AdvReac Confusion Verified 07/02/24 17:14 [From Adderall] lamotrigine [From Lamictal] AdvReac Hallucinati Verified 07/02/24 17:14 ons Review of Systems ROS Statement: Those systems with pertinent positive or pertinent negative responses have been documented in the HPI. ROS Other: All systems not noted in ROS Statement are negative. Past Medical History Past Medical History: Asthma, Pneumonia Additional Past Medical History / Comment(s): Chiari syndrome History of Any Multi-Drug Resistant Organisms: None Reported Past Surgical History: Section Additional Past Surgical History / Comment(s): Decompression surgery for Chiari Past Anesthesia/Blood Transfusion Reactions: No Reported Reaction Past Psychological History: Anxiety, Bipolar, Depression Smoking Status: Former smoker Past Alcohol Use History: None Reported Past Drug Use History: Marijuana - Past Family History Mother Family Medical History: No Reported History General Exam Limitations: no limitations General appearance: alert, in no apparent distress Head exam: Present: atraumatic, normocephalic, normal inspection, other (Diffuse edema to right side of the face with tenderness to palpation. No erythema or warmth. No visible lip or tongue swelling. Patient has diffusely poor dentition however no acute abscesses visualized.) Eye exam: Present: normal appearance, PERRL, EOMI, other (No proptosis or tatiana orbital swelling). Absent: scleral icterus, conjunctival injection, periorbital swelling ENT exam: Present: mucous membranes moist Neck exam: Present: normal inspection, full ROM. Absent: tenderness, meningismus, lymphadenopathy Respiratory exam: Present: normal lung sounds bilaterally. Absent: respiratory distress, wheezes, rales, rhonchi, stridor Cardiovascular Exam: Present: regular rate, normal rhythm, normal heart sounds. Absent: systolic murmur, diastolic murmur, rubs, gallop, clicks Neurological exam: Present: alert, oriented X3 Psychiatric exam: Present: normal affect, normal mood Skin exam: Present: warm, dry, intact, normal color. Absent: rash Course Vital Signs 07/02/24 07/02/24 17:10 20:32 Temperature 98.0 F 98.6 F Pulse Rate 80 Respiratory 18 Rate Blood Pressure 137/84 135/81 O2 Sat by Pulse 97 Oximetry Medical Decision Making - Medical Decision Making Was pt. sent in by a medical professional or institution (, PA, LIQUID WASTE T[employer]ATMENT PLANT OPERATOR, urgent care, hospital, or retirement...) When possible be specific @ -No Did you speak to anyone other than the patient for history (EMS, parent, family, police, friend...)? What history was obtained from this source @ -Mother supplemented history Did you review nursing and triage notes (agree or disagree)? Why? @ -I reviewed and agree with nursing and triage notes Were old charts reviewed (outside hosp., previous admission, EMS record, old EKG, old radiological studies, urgent care reports/EKG's, retirement records)? Report findings @ -ER visit from 2-[address] brain which revealed soft tissue swelling of the face Differential Diagnosis (chest pain, altered mental status, abdominal pain women, abdominal pain men, vaginal bleeding, weakness, fever, dyspnea, syncope, headache, dizziness, GI bleed, back pain, seizure, CVA, palpatations, mental health, musculoskeletal)? @ -Differential Musculoskeletal Muscular strain, contusion, ligament sprain, fracture, arthritis, septic arthritis, bursitis, cellulitis, muscle spasm, nerve compression, DVT, arterial occlusion, herpes zoster, electrolyte abnormality, tumor.... This is not meant to be in all inclusive list EKG interpreted by me (3pts min.). @ -None X-rays interpreted by me (1pt min.). @ -None done CT interpreted by me (1pt min.). @ -CT soft tissue neck with IV contrast reveals suggestion of abscess adjacent to right anterior maxillary bone within the soft tissue adjacent inflammatory changes U/S interpreted by me (1pt. min.). @ -None done What testing was considered but not performed or refused? (CT, X-rays, U/S, labs)? Why? @ -None What meds were considered but not given or refused? Why? @ -None Did you discuss the management of the patient with other professionals (professionals i.e. , PA, [employer] W[employer] T[employer]ATMENT [employer]ANT OPERATOR, lab, RT, psych nurse, social worker assistant, clinical mental health counselor, te acher, emergency communications officer, manager of case)? Give summary @ -I spoke with Dr. Leija on-call ENT who recommends dose of IV Rocephin and and IV clindamycin and discharge with oral clindamycin, warm compresses, and outpatient follow-up. Requests dose of 300 mg clindamycin 3 times daily for 10 days. Was smoking cessation discussed for >3mins.? @ -No Was critical care preformed (if so, how long)? @ -No Were there social determinants of health that impacted care today? How? (Homelessness, low income, unemployed, alcoholism, drug addiction, transportation, low edu. Level, literacy, decrease access to med. care, alf, rehab)? @ -No Was there de-escalation of care discussed even if they declined (Discuss DNR or withdrawal of care, Hospice)? DNR status @ -No What co-morbidities impacted this encounter? (DM, HTN, Smoking, COPD, CAD, Cancer, CVA, ARF, Chemo, Hep., AIDS, mental health diagnosis, sleep apnea, morbid obesity)? @ -None Was patient admitted / discharged? Hospital course, mention meds given and route, prescriptions, significant lab abnormalities, going to OR and other pertinent info. @ -Discharge. 28-year-old female presenting with right facial swelling x 1 week. Diagnosed with cellulitis 1 week ago and has been taking Augmentin and Keflex with no improvement. No red flag symptoms or difficulty breathing or swallowing. No lip or tongue swelling or proptosis. Patient is afebrile nontachycardic. White blood cell count is 10, CRP is 0.9. CT soft tissue of the neck with IV contrast reveals suggestion of abscess adjacent to right anterior maxillary bone within the soft tissue with adjacent inflammatory changes. I spoke with Dr. Leija on-call ENT who recommends dose of IV Rocephin and clindamycin and discharge with outpatient prescription for oral clindamycin. Discussed results and plan with patient. Supportive care discussed including warm compresses. Appropriate return precautions and follow- up care discussed. Case was discussed with my ED attending Dr. Brown. Undiagnosed new problem with uncertain prognosis? @ -No Drug Therapy requiring intensive monitoring for toxicity (Heparin, Nitro, Insulin, Cardizem)? @ -No Were any procedures done? @ -No Diagnosis/symptom? @ -Cellulitis of the face Acute, or Chronic, or Acute on Chronic? @ -Acute Uncomplicated (without systemic symptoms) or Complicated (systemic symptoms)? @ -Uncomplicated Side effects of treatment? @ -No Exacerbation, Progression, or Severe Exacerbation? @ -No Poses a threat to life or bodily function? How? (Chest pain, USA, NM, pneumonia, PE, COPD, DKA, ARF, appy, cholecystitis, CVA, Diverticulitis, Homicidal, Suicidal, threat to staff... and all critical care pts) @ -Not at this time - Lab Data Result diagrams: 07/02/24 17:49 07/02/24 17:49 Lab Results 07/02/24 07/02/24 07/02/24 Range/Units 17:49 17:49 17:53 WBC 10.7 H (3.8-10.6) k/uL RBC 4.52 (3.80-5.40) m/uL Hgb 12.0 (11.4-16.0) gm/dL Hct 38.0 (34.0-46.0) % MCV 84.0 (80.0-100.0) fL MCH 26.6 (25.0-35.0) pg MCHC 31.7 (31.0-37.0) g/dL RDW 15.4 (11.5-15.5) % Plt Count 306 (150-450) k/uL MPV 8.9 Neutrophils % 67 % Lymphocytes % 25 % Monocytes % 5 % Eosinophils % 2 % Basophils % 0 % Neutrophils # 7.1 (1.3-7.7) k/uL Lymphocytes # 2.7 (1.0-4.8) k/uL Monocytes # 0.6 (0-1.0) k/uL Eosinophils # 0.2 (0-0.7) k/uL Basophils # 0.0 (0-0.2) k/uL Sodium 142 (137-145) mmol/L Potassium 3.7 (3.5-5.1) mmol/L Chloride 105 (98-107) mmol/L Carbon Dioxide 31 H (22-30) mmol/L Anion Gap 6 mmol/L BUN 21 H (7-17) mg/dL Creatinine 0.77 (0.52-1.04) mg/dL Est GFR (CKD-EPI)AfAm >90 (>60 ml/min/1.73 sqM) Est GFR (CKD-EPI)NonAf >90 (>60 ml/min/1.73 sqM) Glucose 97 (74-99) mg/dL Calcium 8.6 (8.4-10.2) mg/dL Total Bilirubin 0.3 (0.2-1.3) mg/dL AST 20 (14-36) U/L ALT 22 (4-34) U/L Alkaline Phosphatase 74 (38-126) U/L C-Reactive Protein 0.9 (<1.0) mg/dL Total Protein 6.6 (6.3-8.2) g/dL Albumin 3.8 (3.5-5.0) g/dL Group A Strep (PCR) NOT DETECTED (Not Detectd) Disposition Clinical Impression: Cellulitis of face Disposition: HOME SELF-CARE Condition: Stable Instructions (If sedation given, give patient instructions): Cellulitis (ED) Additional Instructions: Take clindamycin 3 times daily (with breakfast, dinner, and before bed). Use warm compresses to the affected area 3 times daily. Do not squeeze the affected area. Please return to the Emergency Department if symptoms worsen or any other concerns. Prescriptions: clindamycin HCL 300 mg PO TID 10 Days #30 cap Fluconazole [Diflucan] 150 mg PO ONCE #2 tab Is patient prescribed a controlled substance at d/c from ED?: No Referrals: Jacinda Rosas MD [Primary Care Provider] - 1-2 days Time of Disposition: 22:41
[2024-07-02 17:57] LABS: Basophils % (A) 0 %; Eosinophils # (A) 0.2 k/uL (0-0.7); Eosinophils % (A) 2 %; Lymphocytes # (A) 2.7 k/uL (1.0-4.8); Lymphocytes % (A) 25 %; MCH 26.6 pg (25.0-35.0); MCHC 31.7 g/dL (31.0-37.0); Mean Platelet Volume 8.9; Monocytes # (A) 0.6 k/uL (0-1.0); Monocytes % (A) 5 %; Neutrophils # (A) 7.1 k/uL (1.3-7.7); Neutrophils % (A) 67 %; Platelet Count 306 k/uL (150-450); RBC 4.52 m/uL (3.80-5.40); RDW 15.4 % (11.5-15.5); WBC 10.7 k/uL (3.8-10.6)
[2024-07-02] MEDS: KETOROLAC 15 MG/ML 1 ML VIAL IVP STA ×2 (17:58→21:08)
[2024-07-02] MEDS: diphenhydrAMINE 50 MG/ML 1 ML VIAL IVP STA (18:01)
[2024-07-02] MEDS: methylPREDNISolone SOD SUCCI 125 MG/2 ML VIAL IV STA (18:02)
[2024-07-02 18:08] LABS: ALT 22 U/L (4-34); AST 20 U/L (14-36); African American GFR (CKD) >90 (>60 ml/min/1.73 sqM); Albumin 3.8 g/dL (3.5-5.0); Alkaline Phosphatase 74 U/L (38-126); Anion Gap 6 mmol/L; Blood Urea Nitrogen 21 mg/dL (7-17); C Reactive Protein 0.9 mg/dL (<1.0); Calcium 8.6 mg/dL (8.4-10.2); Carbon Dioxide 31 mmol/L (22-30); Chloride 105 mmol/L (98-107); Glucose 97 mg/dL (74-99); Non-African American GFR(CKD) >90 (>60 ml/min/1.73 sqM); Potassium 3.7 mmol/L (3.5-5.1); Sodium 142 mmol/L (137-145); Total Bilirubin 0.3 mg/dL (0.2-1.3); Total Protein 6.6 g/dL (6.3-8.2)
--- NOTE | 2024-07-02 19:48 | CT ---
EXAMINATION TYPE: CT soft tissue neck w con DATE OF EXAM: 07/02/2024 7:35 PM COMPARISON: None. CLINICAL INDICATION: Female, 28 years old with history of right sided facial/neck swelling, Right nacho e facial/neck swelling TECHNIQUE: Axial images at 3 mm thick sections. Reconstructed images in the coronal plane and sagitt al plane are reviewed. Contrast used:100 mL of Isovue 300 with IV Contrast, (none if empty) Oral contrast used: (none if empty) CT DLP: 873.2 mGycm, Automated exposure control for dose reduction was used. FINDINGS: Limited CT sections are obtained the lung apices. The lung apices appear clear. CT neck: The torus tubarius and fossa of Rosenmuller are normal. Supply Analyst spaces are normal. Para nasal sinuses and mastoid air cells are clear. Parotid glands appear normal and symmetrical. Submandibular glands, are normal. Parapharyngeal spac es are normal. No suspicious adenopathy is evident. The hypopharynx appears within normal limits. Vocal cord level appear symmetrical. Thyroid as visualized is normal. Osseous structures are normal. There may be some mild soft tissue swelling over the right upper lip region. Underlying abscess appe ars to be present measuring 1.2 x 2.1 cm in size. Series 3 image 76. No adjacent erosion is evident IMPRESSION: 1. Suggestion of an abscess adjacent to the right anterior maxillary bone within the soft tissues adj acent inflammatory change. [facility], , 07/02/2024 7:45 PM
[2024-07-02] MEDS: CLINDAMYCIN 600 MG in DEXTROSE 5% IN WATER 50 ML IVPB STA (23:10)
[2024-07-03] MEDS: ACETAMINOPHEN TAB 500 MG TAB PO STA (00:07)
[2024-07-03 00:16] VITALS: BP 149/83; PULSE 70; RESP 16; TEMP 98.9
== END 2024-07-03 00:26 | disposition home or self-care (01) ==
LOC: EC 17:04
DX: L03.211 Cellulitis of face (principal); Z87.891 Personal history of nicotine dependence; Z88.0 Allergy status to penicillin; Z88.1 Allergy status to other antibiotic agents; Z88.3 Allergy status to other anti-infective agents; Z88.8 Allergy status to other drugs, medicaments and biological substances
CPT/HCPCS: 36415; 87651; 80053; 85025; 86140; 70491; 99284; 96365; 96367; 96375 ×3; 96376; J1200; J0696; J1885; Q9967; J0736; J2919

== ENCOUNTER 2024-10-07 07:36 | Emergency (ER) | payer OTHER ==
[2024-10-07] MEDS: PANTOPRAZOLE 40 MG/10 ML VIAL IVP STA (08:38)
[2024-10-07] MEDS: FAMOTIDINE 20 MG/2 ML VIAL IV STA (08:38)
[2024-10-07] MEDS: SODIUM CHLORIDE 0.9% 1,000 ML IV ONE (08:39)
[2024-10-07 08:56] LABS: Basophils # (A) 0.05 10*3/uL (0.00-0.10); Basophils % (A) 0.4 %; Eosinophils # (A) 0.15 10*3/uL (0.04-0.35); Eosinophils % (A) 1.2 %; HCT 42.1 % (37.2-46.3); HGB 13.6 g/dL (12.0-15.0); Lymphocytes # (A) 1.48 10*3/uL (0.90-5.00); Lymphocytes % (A) 11.7 %; MCH 27.3 pg (27.0-32.0); MCHC 32.3 g/dL (32.0-37.0); MCV 84.5 fL (80.0-97.0); Mean Platelet Volume 12.1 fL (9.5-12.2); Monocytes # (A) 0.95 10*3/uL (0.20-1.00); Monocytes % (A) 7.5 %; Neutrophils # (A) 9.97 10*3/uL (1.80-7.70); Platelet Count 279 10*3/uL (140-440); RBC 4.98 10*6/uL (4.10-5.20); RDW 14.8 % (11.5-14.5); WBC 12.63 10*3/uL (4.50-10.00)
[2024-10-07 09:07] LABS: Glucose 124 mg/dL (74-99); Total Protein 7.2 g/dL (6.3-8.2)
--- NOTE | 2024-10-07 09:07 | XR ---
EXAMINATION TYPE: XR chest 2V DATE OF EXAM: 10/07/2024 8:55 AM COMPARISON: Chest radiographs from 04/20/2024 TECHNIQUE: XR chest 2V Frontal and lateral views of the chest. CLINICAL INDICATION:Female, 29 years old with history of difficulty breathing; FINDINGS: Lungs/Pleura: There is no evidence of pleural effusion, focal consolidation, or pneumothorax. Pulmonary vascularity: Unremarkable. Heart/mediastinum: Cardiomediastinal silhouette is unremarkable. Musculoskeletal: No acute osseous pathology. IMPRESSION: No acute cardiopulmonary disease/process. [facility], , 10/07/2024 9:05 AM
[2024-10-07 09:10] LABS: ALT 15 U/L (4-34); AST 21 U/L (14-36); African American GFR (CKD) >90 (>60 ml/min/1.73 sqM); Albumin 4.2 g/dL (3.5-5.0); Alkaline Phosphatase 103 U/L (38-126); Anion Gap 9 mmol/L; Blood Urea Nitrogen 10 mg/dL (7-17); Calcium 9.2 mg/dL (8.4-10.2); Carbon Dioxide 23 mmol/L (22-30); Chloride 107 mmol/L (98-107); Lipase 56 U/L (23-300); Non-African American GFR(CKD) >90 (>60 ml/min/1.73 sqM); Sodium 139 mmol/L (137-145); Total Bilirubin 0.6 mg/dL (0.2-1.3)
[2024-10-07 10:09] VITALS: BP 107/88; PULSE 78; RESP 14; TEMP 98
--- NOTE | 2024-10-07 10:12 | ED ---
General Adult HPI - General Chief complaint: Shortness of Breath Stated complaint: Pain in lungs, ERIC Time Seen by Provider: 10/07/24 07:39 Source: patient Mode of arrival: ambulatory Limitations: no limitations - History of Present Illness Initial comments: 29-year-old female presents to the emergency department reporting cough. States that it started last night. She has pain with inspiration. She is coughing up brown phlegm. Also has significant heartburn especially with eating. She reports to increased abdominal bloating. No fevers. No sick contacts. No recent travel. Admits to history of recurrent pneumonia. Also has asthma. Has never been intubated for her breathing. Has daily inhalers but denies daily use of rescue inhaler. No concern for . Admits nausea without vomiting. No changes in her bowel or bladder habits. Denies black or bloody stools. No other alleviating, precipitating or modifying factors - Related Data Home Medications Medication Instructions Recorded Confirmed Ipratropium-Albuterol Nebulize 3 ml INHALATION RT-Q4H PRN 05/06/18 05/15/21 [Duoneb 0.5 mg-3 mg/3 ml Soln] Acetaminophen/Diphenhydramine 2 tab PO HS PRN 05/15/21 05/15/21 [Tylenol PM 500-25mg] Albuterol Sulfate [Proair Hfa] 2 puff INHALATION RT-Q6H PRN 05/15/21 05/15/21 Fluticasone Propion/Salmeterol 1 puff INHALATION RT-BID 05/15/21 05/15/21 [Advair 250-50 Diskus] Previous Rx's Medication Instructions Recorded Cyclobenzaprine [Flexeril] 10 mg PO TID PRN #15 tab 07/29/21 Ibuprofen [Motrin] 600 mg PO Q8HR PRN #20 tab 07/29/21 Penicillin V Potassium [Pen Vee K] 500 mg PO QID #40 tablet 07/29/21 Clindamycin [Cleocin] 2 tab PO Q6H #60 cap 03/17/22 methylPREDNISolone Dose Pack 4 mg PO DIRECTED #21 tab 04/06/22 [Medrol Dose Pack] Albuterol Inhaler [Ventolin Hfa 2 puff INHALATION QID #8 gm 02/03/23 Inhaler] Albuterol Nebulized [Ventolin 2.5 mg INHALATION Q4H PRN #75 ml 02/03/23 Nebulized] predniSONE 50 mg PO DAILY #5 tab 02/03/23 Ipratropium-Albuterol Nebulize 3 ml INHALATION QID #50 each 09/17/23 [Duoneb 0.5 mg-3 mg/3 ml Soln] predniSONE 50 mg PO DAILY #5 tab 09/17/23 Meclizine [Antivert] 25 mg PO TID PRN #15 tab 01/27/24 predniSONE 50 mg PO DAILY #5 tab 01/27/24 Azithromycin [Zithromax Z Pack] 0 tab PO DIRECTED #6 tab 04/20/24 Ipratropium-Albuterol Nebulize 3 ml INHALATION QID #25 each 04/20/24 [Duoneb 0.5 mg-3 mg/3 ml Soln] predniSONE 50 mg PO DAILY #5 tab 04/20/24 Mometasone Furoate [Nasonex 24Hr 1 spray NASAL DAILY #17 ml 06/25/24 Allergy] Pseudoephedrine 12Hr [Sudafed 12 120 mg PO Q12HR #14 tab 06/25/24 Hour] Amoxic-Pot Clav 875-125Mg 1 tab PO Q12HR #20 tab 06/26/24 [Augmentin 875-125] predniSONE 50 mg PO DAILY #5 tab 06/26/24 Fluconazole [Diflucan] 150 mg PO ONCE #2 tab 07/02/24 Doxycycline [Vibramycin] 100 mg PO BID #20 capsule 07/03/24 Famotidine [Pepcid] 20 mg PO BID #60 tablet 10/07/24 Ipratropium/Albuter 20-100Mcg 1 puff INHALATION Q4HR #4 gm 10/07/24 [Combivent Respimat 20-100Mcg Inhaler] Omeprazole [PriLOSEC] 20 mg PO AC-BRKFST #30 cap 10/07/24 Allergies Allergy/AdvReac Type Severity Reaction Status Date / Time clindamycin Allergy Dyspnea Verified 10/07/24 07:42 amphetamine aspartate AdvReac Confusion Verified 10/07/24 07:42 [From Adderall] amphetamine sulfate AdvReac Confusion Verified 10/07/24 07:42 [From Adderall] dextroamphetamine saccharate AdvReac Confusion Verified 10/07/24 07:42 [From Adderall] dextroamphetamine sulfate AdvReac Confusion Verified 10/07/24 07:42 [From Adderall] lamotrigine [From Lamictal] AdvReac Hallucinati Verified 10/07/24 07:42 ons Review of Systems ROS Statement: Those systems with pertinent positive or pertinent negative responses have been documented in the HPI. ROS Other: All systems not noted in ROS Statement are negative. Past Medical History Past Medical History: Asthma, Pneumonia Additional Past Medical History / Comment(s): Chiari syndrome History of Any Multi-Drug Resistant Organisms: None Reported Past Surgical History: Section Additional Past Surgical History / Comment(s): Decompression surgery for Chiari Past Anesthesia/Blood Transfusion Reactions: No Reported Reaction Past Psychological History: Anxiety, Bipolar, Depression Smoking Status: Never smoker Past Alcohol Use History: None Reported Past Drug Use History: Marijuana - Past Family History Mother Family Medical History: No Reported History General Exam Limitations: no limitations General appearance: alert, in no apparent distress Head exam: Present: atraumatic, normocephalic, normal inspection Eye exam: Present: normal appearance, PERRL, EOMI. Absent: scleral icterus, conjunctival injection, periorbital swelling ENT exam: Present: normal exam, mucous membranes moist Neck exam: Present: normal inspection. Absent: tenderness, meningismus, lymphadenopathy Respiratory exam: Present: normal lung sounds bilaterally. Absent: respiratory distress, wheezes, rales, rhonchi, stridor Cardiovascular Exam: Present: regular rate, normal rhythm, normal heart sounds. Absent: systolic murmur, diastolic murmur, rubs, gallop, clicks GI/Abdominal exam: Present: soft, normal bowel sounds. Absent: distended, tenderness, guarding, rebound, rigid Extremities exam: Present: normal inspection, full ROM, normal capillary refill. Absent: tenderness, pedal edema, joint swelling, calf tenderness Back exam: Present: normal inspection Neurological exam: Present: alert, oriented X3, CN II-XII intact Psychiatric exam: Present: normal affect, normal mood Skin exam: Present: warm, dry, intact, normal color. Absent: rash Course Vital Signs 10/07/24 10/07/24 10/07/24 07:38 07:42 08:42 Temperature 98.5 F 99.5 F Pulse Rate 109 H 91 93 Respiratory 18 18 16 Rate Blood Pressure 94/70 139/74 114/71 O2 Sat by Pulse 94 L 95 96 Oximetry 10/07/24 10/07/24 09:24 10:06 Temperature 98 F Pulse Rate 83 78 Respiratory 16 14 Rate Blood Pressure 124/77 107/88 O2 Sat by Pulse 97 100 Oximetry Medical Decision Making - Medical Decision Making Was pt. sent in by a medical professional or institution (, PA, BUILDING CERTIFIER, urgent care, hospital, or fpc...) When possible be specific @ -No Did you speak to anyone other than the patient for history (EMS, parent, family, police, friend...)? What history was obtained from this source @ -No Did you review nursing and triage notes (agree or disagree)? Why? @ -I reviewed and agree with nursing and triage notes Were old charts reviewed (outside hosp., previous admission, EMS record, old EKG, old radiological studies, urgent care reports/EKG's, fpc records)? Report findings @ -No old charts were reviewed Differential Diagnosis (chest pain, altered mental status, abdominal pain women, abdominal pain men, vaginal bleeding, weakness, fever, dyspnea, syncope, headache, dizziness, GI bleed, back pain, seizure, CVA, palpatations, mental health, musculoskeletal)? @ -Peptic ulcer, gastritis, esophagitis, EKG interpreted by me (3pts min.). @ -Yes and demonstrates sinus rhythm with a rate of 74. WI interval 160. QRS 89. QTc of 387. No acute ST segment elevations or depressions X-rays interpreted by me (1pt min.). @ -Yes which demonstrates no acute process CT interpreted by me (1pt min.). @ -None done U/S interpreted by me (1pt. min.). @ -None done What testing was considered but not performed or refused? (CT, X-rays, U/S, labs)? Why? @ -None What meds were considered but not given or refused? Why? @ -None Did you discuss the management of the patient with other professionals (professionals i.e. , PA, BUILDING CERTIFIER, lab, RT, psych nurse, social science instructor, shallot cleaner, teacher, animal park code enforcement officer, skilled nursing case manager)? Give summary @ -No Was smoking cessation discussed for >3mins.? @ -No Was critical care preformed (if so, how long)? @ -No Were there social determinants of health that impacted care today? How? (Homelessness, low income, unemployed, alcoholism, drug addiction, transportation, low edu. Level, literacy, decrease access to med. care, [place] [facility], rehab)? @ -No Was there de-escalation of care discussed even if they declined (Discuss DNR or withdrawal of care, Hospice)? DNR status @ -No What co-morbidities impacted this encounter? (DM, HTN, Smoking, COPD, CAD, Cancer, CVA, ARF, Chemo, Hep., AIDS, mental health diagnosis, sleep apnea, morbid obesity)? @ -GERD, asthma Was patient admitted / discharged? Hospital course, mention meds given and route, prescriptions, significant lab abnormalities, going to OR and other pertinent info. @ -Upon arrival patient seen and evaluated in room 19. Thorough history and physical exam was performed. IV access was established and laboratory studies are conducted. Chest x-ray was performed. Patient was given Pepcid, Protonix with improvement in her pain. She was also given a dose of dexamethasone for her cough. Patient reports improvement in her symptoms. She will be discharged home on Pepcid, omeprazole. I did refill her inhaler. Patient will follow-up with her primary care doctor in 2 to 4 days. Recommended EGD for worsening heartburn symptoms. Recommended return for any new or worsening symptoms. Patient agreeable to plan she was discharged in stable condition Undiagnosed new problem with uncertain prognosis? @ -No Drug Therapy requiring intensive monitoring for toxicity (Heparin, Nitro, Insulin, Cardizem)? @ -No Were any procedures done? @ -No Diagnosis/symptom? @ -Acute epigastric abdominal pain, history of GERD, asthma history Acute, or Chronic, or Acute on Chronic? @ -Acute on chronic Uncomplicated (without systemic symptoms) or Complicated (systemic symptoms)? @ -Complicated Side effects of treatment? @ -No Exacerbation, Progression, or Severe Exacerbation? @ -No Poses a threat to life or bodily function? How? (Chest pain, USA, MD, pneumonia, PE, COPD, DKA, ARF, appy, cholecystitis, CVA, Diverticulitis, Homicidal, Suicidal, threat to staff... and all critical care pts) @ -No - Lab Data Result diagrams: 10/07/24 08:07 10/07/24 08:07 Lab Results 10/07/24 10/07/24 10/07/24 Range/Units 08:07 08:07 08:07 WBC 12.63 H (4.50-10.00) 10*3/uL RBC 4.98 (4.10-5.20) 10*6/uL Hgb 13.6 (12.0-15.0) g/dL Hct 42.1 (37.2-46.3) % MCV 84.5 (80.0-97.0) fL MCH 27.3 (27.0-32.0) pg MCHC 32.3 (32.0-37.0) g/dL Plt Count 279 (140-440) 10*3/uL MPV 12.1 (9.5-12.2) fL Immature Gran % (Auto) 0.2 % Neutrophils % 79.0 % Lymphocytes % 11.7 % Monocytes % 7.5 % Eosinophils % 1.2 % Basophils % 0.4 % Immature Gran # 0.03 (0.00-0.04) 10*3/uL Neutrophils # 9.97 H (1.80-7.70) 10*3/uL Lymphocytes # 1.48 (0.90-5.00) 10*3/uL Monocytes # 0.95 (0.20-1.00) 10*3/uL Eosinophils # 0.15 (0.04-0.35) 10*3/uL Basophils # 0.05 (0.00-0.10) 10*3/uL Sodium 139 (137-145) mmol/L Potassium 4.0 (3.5-5.1) mmol/L Chloride 107 (98-107) mmol/L Carbon Dioxide 23 (22-30) mmol/L Anion Gap 9 mmol/L BUN 10 (7-17) mg/dL Creatinine 0.75 (0.52-1.04) mg/dL Est GFR (CKD-EPI)AfAm >90 (>60 ml/min/1.73 sqM) Est GFR (CKD-EPI)NonAf >90 (>60 ml/min/1.73 sqM) Glucose 124 H (74-99) mg/dL Calcium 9.2 (8.4-10.2) mg/dL Total Bilirubin 0.6 (0.2-1.3) mg/dL AST 21 (14-36) U/L ALT 15 (4-34) U/L Alkaline Phosphatase 103 (38-126) U/L Troponin I <0.012 (0.000-0.034) ng/mL Total Protein 7.2 (6.3-8.2) g/dL Albumin 4.2 (3.5-5.0) g/dL Lipase 56 (23-300) U/L Urine HCG, Qual (Not Detectd) 10/07/24 Range/Units 08:43 WBC (4.50-10.00) 10*3/uL RBC (4.10-5.20) 10*6/uL Hgb (12.0-15.0) g/dL Hct (37.2-46.3) % MCV (80.0-97.0) fL MCH (27.0-32.0) pg MCHC (32.0-37.0) g/dL Plt Count (140-440) 10*3/uL MPV (9.5-12.2) fL Immature Gran % (Auto) % Neutrophils % % Lymphocytes % % Monocytes % % Eosinophils % % Basophils % % Immature Gran # (0.00-0.04) 10*3/uL Neutrophils # (1.80-7.70) 10*3/uL Lymphocytes # (0.90-5.00) 10*3/uL Monocytes # (0.20-1.00) 10*3/uL Eosinophils # (0.04-0.35) 10*3/uL Basophils # (0.00-0.10) 10*3/uL Sodium (137-145) mmol/L Potassium (3.5-5.1) mmol/L Chloride (98-107) mmol/L Carbon Dioxide (22-30) mmol/L Anion Gap mmol/L BUN (7-17) mg/dL Creatinine (0.52-1.04) mg/dL Est GFR (CKD-EPI)AfAm (>60 ml/min/1.73 sqM) Est GFR (CKD-EPI)NonAf (>60 ml/min/1.73 sqM) Glucose (74-99) mg/dL Calcium (8.4-10.2) mg/dL Total Bilirubin (0.2-1.3) mg/dL AST (14-36) U/L ALT (4-34) U/L Alkaline Phosphatase (38-126) U/L Troponin I (0.000-0.034) ng/mL Total Protein (6.3-8.2) g/dL Albumin (3.5-5.0) g/dL Lipase (23-300) U/L Urine HCG, Qual Not Detected (Not Detectd) Disposition Clinical Impression: Bronchitis, GERD with esophagitis Disposition: HOME SELF-CARE Condition: Stable Instructions (If sedation given, give patient instructions): GERD (Gastroesophageal Reflux Disease) (ED) Additional Instructions: I recommend that you have an EGD. You may need to see your primary care doctor to have this referral sent through. I have included several phone numbers of surgeons and GI doctors that can complete an EGD. At this time avoid any oral steroids, NSAIDs and alcohol. Take the Pepcid and Protonix daily. Return for any new or worsening symptoms Prescriptions: Ipratropium/Albuter 20-100Mcg [Combivent Respimat 20-100Mcg Inhaler] 1 puff INHALATION Q4HR #4 gm Famotidine [Pepcid] 20 mg PO BID #60 tablet Omeprazole [PriLOSEC] 20 mg PO AC-BRKFST #30 cap Is patient prescribed a controlled substance at d/c from ED?: No Referrals: Jacinda Rosas MD [Primary Care Provider] - 1-2 days Dave Raman DO [Doctor of Osteopathic Medicine] - 1-2 days Jaylin Mckeon MD [STAFF PHYSICIAN] - 1-2 days Walker Padilla DO [REFERRING] - 1-2 days Time of Disposition: 10:11
[2024-10-07] MEDS: DEXAMETHASONE SOD PHOSPHATE 10 MG/ML 1 ML VIAL IVP STA (10:20)
== END 2024-10-07 10:29 | disposition home or self-care (01) ==
LOC: EC 07:36
DX: K21.00 Gastro-esophageal reflux disease with esophagitis, without bleeding (principal); J40 Bronchitis, not specified as acute or chronic; Z88.0 Allergy status to penicillin; Z88.1 Allergy status to other antibiotic agents; Z88.3 Allergy status to other anti-infective agents; Z88.8 Allergy status to other drugs, medicaments and biological substances
CPT/HCPCS: 36415; 93005; 80053; 83690; 84484; 85025; 81025; 71046; 99285; 96374; 96375; 96361; J1100; J2470; J1308